=== PATIENT | male | born 1955 | race Caucasian/White ===

== ENCOUNTER 2016-03-15 13:56 | Inpatient (IN) | payer OTHER ==
[~2016-03-15] VITALS: Ht 180.3 cm; Wt 75.0 kg
[~2016-03-15 13:56] MED LIST: DICL75 PO; QUET200 PO; ROBA750T3 PO; SERT-129 PO
[2016-03-15 14:04] VITALS: BP 124/70; PULSE 91; RESP 16; TEMP 98.5; O2SAT 98
[2016-03-15] MEDS ORDERED: ZOLO25TA PO (14:46)
[2016-03-15] MEDS ORDERED: SERO200T PO (14:46)
--- NOTE | 2016-03-15 14:54 | PD ---
HPI Chief Complaint: Skin Problem Time Seen by Provider: 14:34 Travel History International Travel<30 days: No Contact w/Intl Traveler<30days: No Traveled to known affect area: No History of Present Illness HPI This patient complains of infection of his right foot. He injects himself of Dilaudid twice weekly and injected his foot a few days ago. It became red and swollen and pus filled. Symptoms severity is moderate. No alleviating factors. He reports history of hepatitis C as well. Does not go to any physicians for follow-up. No alleviating factors. Duration is 3 days. PFSH Past Medical History Blood Disorders: Yes Bipolar Disorder: Yes Anxiety: Yes Depression: Yes Congestive Heart Failure: No Cirrhosis: No Cerebrovascular Accident: No Diabetes: No Diminished Hearing: No Gastrointestinal Disorders: Yes (BLEEDING ULCERS) Hepatitis: Yes (Hep C) Hiatal Hernia: Yes (REPAIRED A CHILD) Musculoskeletal: Yes (CHRONIC LOW BACK) Immunizations Current: No Myocardial Infarction: No Schizophrenia: Yes (SCHIZOAFFECTIVE) Seizures: Yes (R/T WITHDRAWAL) Ulcer: Yes Past Surgical History Abdominal Surgery: Yes (hernia repair) Appendectomy: Yes Other Surgery: Yes (2 cysts removed from neck) Social History Alcohol Use: No Tobacco Use: Yes (1 ppd) Substance Use: Yes (Dilaudid last use yesterday , cocaine last use a year ago ) Allergies-Medications (Allergen,Severity, Reaction): Coded Allergies: Aspirin (Verified Allergy, Severe, BLEEDING ULCERS, 03/15/16) Geodon (Verified Allergy, Severe, TONGUE SWELLING, 03/15/16) Iodine (Verified Allergy, Severe, Rash, 03/15/16) SKIN SLOUGHS OFF PER PT " GETS EATEN TO THE BONE" Klonopin (Verified Allergy, Severe, Hallucinations, 03/15/16) Paxil (Verified Allergy, Severe, Rash, 03/15/16) Reported Meds & Prescriptions Reported Meds & Active Scripts Active Reported Seroquel (Quetiapine Fumarate) 200 Mg Tab 200 Mg PO DAILY Zoloft (Sertraline HCl) 25 Mg Tab 25 Mg PO DAILY Review of Systems General / Constitutional: No: Fever Eyes: No: Visual changes HENT: No: Headaches Cardiovascular: No: Chest Pain or Discomfort Respiratory: No: Shortness of Breath Gastrointestinal: No: Abdominal Pain Genitourinary: No: Dysuria Musculoskeletal: Positive: Pain Skin: No Rash Neurologic: No: Weakness Psychiatric: Positive: Substance Abuse, No: Depression Endocrine: No: Polydipsia Hematologic/Lymphatic: No: Easy Bruising Physical Exam Narrative GENERAL: Well-nourished, well-developed patient with right foot infection. SKIN: Warm and dry. HEAD: Atraumatic. Normocephalic. EYES: Pupils equal and round. No scleral icterus. No injection or drainage. ENT: No nasal bleeding or discharge. Mucous membranes pink and moist. NECK: Trachea midline. No JVD. CARDIOVASCULAR: Regular rate and rhythm. No murmur appreciated. RESPIRATORY: No accessory muscle use. Clear to auscultation. Breath sounds equal bilaterally. GASTROINTESTINAL: Abdomen soft, non-tender, nondistended. Hepatic and splenic margins not palpable. MUSCULOSKELETAL: Right foot has a large abscess on the dorsum. There is a fluctuant golf ball sized tense abscess. Macular erythema of the foot with tenderness and swelling and warmth. No clubbing. No cyanosis. No edema. NEUROLOGICAL: Awake and alert. No obvious cranial nerve deficits. Motor grossly within normal limits. Normal speech. PSYCHIATRIC: Appropriate mood and affect; insight and judgment poor Data Data Last Documented VS Vital Signs Date Time Temp Pulse Resp B/P Pulse Ox O2 Delivery O2 Flow Rate FiO2 03/15/16 14:04 98.5 91 16 124/70 98 Orders Wound Culture And Gram Stain (03/15/16 14:49) Iv Access Insert/Monitor (03/15/16 14:49) Complete Blood Count With Diff (03/15/16 14:49) Basic Metabolic Panel (Bmp) (03/15/16 14:49) Vancomycin Inj (Vancomycin Inj) (03/15/16 15:00) Admit Order (Ed Use Only) (03/15/16 15:46) Admit To Inpatient (03/15/16 ) Vital Signs (Adult) Q4H (03/15/16 15:45) Activity Oob With Assistance (03/15/16 15:45) Diet Regular Basic (03/15/16 Dinner) Labs Laboratory Tests Test 03/15/16 14:50 White Blood Count 11.7 TH/MM3 Red Blood Count 3.41 MIL/MM3 Hemoglobin 10.2 GM/DL Hematocrit 30.6 % Mean Corpuscular Volume 89.7 FL Mean Corpuscular Hemoglobin 30.0 PG Mean Corpuscular Hemoglobin 33.4 % Concent Red Cell Distribution Width 12.5 % Platelet Count 171 TH/MM3 Mean Platelet Volume 9.4 FL Neutrophils (%) (Auto) 71.0 % Lymphocytes (%) (Auto) 14.5 % Monocytes (%) (Auto) 10.1 % Eosinophils (%) (Auto) 3.9 % Basophils (%) (Auto) 0.5 % Neutrophils # (Auto) 8.2 TH/MM3 Lymphocytes # (Auto) 1.7 TH/MM3 Monocytes # (Auto) 1.2 TH/MM3 Eosinophils # (Auto) 0.5 TH/MM3 Basophils # (Auto) 0.1 TH/MM3 CBC Comment DIFF FINAL Differential Comment Sodium Level 140 MEQ/L Potassium Level 4.2 MEQ/L Chloride Level 106 MEQ/L Carbon Dioxide Level 25.3 MEQ/L Anion Gap 9 MEQ/L Blood Urea Nitrogen 13 MG/DL Creatinine 0.68 MG/DL Estimat Glomerular Filtration 119 ML/MIN Rate Random Glucose 99 MG/DL Calcium Level 8.0 MG/DL [facility] Medical Decision Making Medical Screen Exam Complete: Yes Emergency Medical Condition: Yes Medical Record Reviewed: Yes Differential Diagnosis Foot abscess, cellulitis, carbuncle Narrative Course I have reviewed the patient's electronic medical record. I placed a right external jugular IV I gave him 1 g IV vancomycin Patient gives verbal consent for incision and drainage of his foot abscess Procedure note: I anesthetized the area with ethyl chloride spray. I incised the abscess with an 11 blade scalpel and drained a large quantity of thick yellow pus. I sent a swab for one culture and Gram stain. I expressed all the pus possible He tolerated the procedure well CBC is normal Metabolic profile is normal Case reviewed with hospitalist. I'm going to admit him for IV antibiotics. This abscess and foot infection is significant and I think needs IV antibiotics rather than oral antibiotics as outpatient. Since I drained out a large amount of pus I don't feel this will require surgical incision and drainage formally in the operating room but that could change Diagnosis Primary Impression: Abscess of right foot Additional Impression: IV drug abuse Admitting Information Admitting Physician Requests: Admit Jacob Shin MD Mar 15, 2016 14:53
[2016-03-15] MEDS ORDERED: VANCOMYCIN INJ 1,000 MG in SODIUM CHLOR 0.9% 250 ML INJ 250 ML IV ONE (15:00)
[2016-03-15 15:02] LABS: AUTOMATED NEUTROPHIL # 8.2 TH/MM3 (1.8-7.7); BASOPHIL # 0.1 TH/MM3 (0-0.2); BASOPHIL % 0.5 % (0.0-2.0); EOSINOPHIL # 0.5 TH/MM3 (0-0.4); EOSINOPHIL % 3.9 % (0.0-4.0); HEMATOCRIT 30.6 % (39.0-51.0); HEMO FLAGS DIFF FINAL; LYMPH % 14.5 % (9.0-44.0); LYMPHOCYTE # 1.7 TH/MM3 (1.0-4.8); MEAN CELL VOLUME 89.7 FL (80.0-100.0); MEAN CORPUSCULAR HGB CONC 33.4 % (32.0-36.0); MONO % 10.1 % (0.0-8.0); PLATELET COUNT 171 TH/MM3 (150-450); RED BLOOD COUNT 3.41 MIL/MM3 (4.50-5.90); RED CELL DISTRIBUTION WIDTH 12.5 % (11.6-17.2); WHITE BLOOD COUNT 11.7 TH/MM3 (4.0-11.0)
[2016-03-15 15:11] LABS: POTASSIUM 4.2 MEQ/L (3.5-5.1)
[2016-03-15 15:14] LABS: BICARBONATE 25.3 MEQ/L (21.0-32.0)
[2016-03-15] MEDS ORDERED: ONDANSETRON HCL 4 MG/2 ML VIAL IVP PRN (15:45)
[2016-03-15] MEDS ORDERED: ACETAMINOPHEN 325 MG TAB PO PRN ×2 (15:45)
[2016-03-15] MEDS ORDERED: NALOXONE HCL 0.4 MG/ML AMP IV PRN (15:45)
[2016-03-15] MEDS ORDERED: ACETAMINOPHEN/HYDROcodone 325 MG/5 MG TAB PO PRN (15:45)
[2016-03-15] MEDS ORDERED: MAGNESIUM HYDROXIDE SUSP 30 ML CUP PO PRN (15:45)
[2016-03-15] MEDS ORDERED: Vancomycin Consult Pharmacy 1 EA OTHER SCH (15:45)
[2016-03-15] MEDS ORDERED: SODIUM CHLORIDE 0.9% FLUSH 5 ML FLUSH FLUSH PRN (15:45)
[2016-03-15] MEDS: HEPARIN SODIUM - SQ 10,000 UNITS/ML VIAL SQ SCH (16:34)
[2016-03-15 17:21] VITALS: BP 108/66; PULSE 73; RESP 18; O2SAT 98
--- NOTE | 2016-03-15 17:59 | HHI.HP ---
[facility] Service [facility] Primary Care Physician No Primary Care Physician Admission Diagnosis R foot abcess needing IV abx Diagnoses: (1) IV drug abuse (2) Abscess of right foot (3) Schizoaffective disorder Chief Complaint: Right foot infection Travel History International Travel<30 Days: No Contact w/Intl Traveler <30 Da: No Traveled to Known Affected Are: No History of Present Illness The patient is a 60-year-old male who presented to the emergency department complaint of an infection in his right foot. He states that he injected Dilaudid at the site a few days ago. He uses IV Dilaudid twice weekly. The area on the dorsum of the right foot became red and swollen. He developed worsening pain in the foot. Has had fevers, chills, and night sweats. Review of Systems Constitutional: COMPLAINS OF: Fever, Chills, Night Sweats Eyes: DENIES: Blurred vision, Vision loss Ears, nose, mouth, throat: DENIES: Hearing loss Respiratory: DENIES: Cough, Wheezing, Sputum production, Shortness of breath Cardiovascular: DENIES: Chest pain, Palpitations, Dyspnea on Exertion, Lower Extremity Edema Gastrointestinal: DENIES: Abdominal pain, Constipation, Diarrhea, Nausea, Vomiting Genitourinary: DENIES: Urinary frequency, Urinary incontinence, Urgency, Hematuria, Dysuria, Nocturia Musculoskeletal: DENIES: Joint pain, Muscle aches Integumentary: DENIES: Pruritus, Rash Hematologic/lymphatic: DENIES: Bruising Neurologic: DENIES: Headache Past Family Social History Past Medical History Schizoaffective disorder History of ulcers Hepatitis C History of withdrawal seizures IV drug abuse Past Surgical History Inguinal hernia repair Appendectomy 2 cysts removed from neck Reported Medications Seroquel (Quetiapine Fumarate) 200 Mg Tab 200 Mg PO DAILY Zoloft (Sertraline HCl) 25 Mg Tab 25 Mg PO DAILY Allergies: Coded Allergies: Aspirin (Verified Allergy, Severe, BLEEDING ULCERS, 03/15/16) Geodon (Verified Allergy, Severe, TONGUE SWELLING, 03/15/16) Iodine (Verified Allergy, Severe, Rash, 03/15/16) SKIN SLOUGHS OFF PER PT " GETS EATEN TO THE BONE" Klonopin (Verified Allergy, Severe, Hallucinations, 03/15/16) Paxil (Verified Allergy, Severe, Rash, 03/15/16) Family History Mother had leukemia. Social History Smokes one pack per day. Uses IV Dilaudid twice weekly. Has a history of cocaine use, most recently 1 year ago. Physical Exam Vital Signs Vital Signs Date Time Temp Pulse Resp B/P Pulse Ox O2 Delivery O2 Flow Rate FiO2 03/15/16 17:21 73 18 108/66 98 Room Air 03/15/16 14:04 98.5 91 16 124/70 98 Physical Exam GENERAL: Thin male in no acute distress. HEENT: Normocephalic, atraumatic. Pupils equal, round and reactive. Extraocular movements intact. No scleral icterus. No injection or drainage. Oropharynx is clear. Mucous membranes are moist. Poor dentition CARDIOVASCULAR: Regular rate and rhythm without murmurs, gallops, or rubs. RESPIRATORY: Clear to auscultation. No wheezes, rales, or rhonchi. Breathing is non-labored. GASTROINTESTINAL: Abdomen soft, non-tender, nondistended. EXTREMITIES: No lower extremity edema. No calf tenderness. PSYCH: Alert and oriented x 3. SKIN: Erythema and edema of the dorsum of the right foot with a raised area with a small area of black discoloration. Laboratory Laboratory Tests Test 03/15/16 14:50 White Blood Count 11.7 Red Blood Count 3.41 Hemoglobin 10.2 Hematocrit 30.6 Mean Corpuscular Volume 89.7 Mean Corpuscular Hemoglobin 30.0 Mean Corpuscular Hemoglobin 33.4 Concent Red Cell Distribution Width 12.5 Platelet Count 171 Mean Platelet Volume 9.4 Neutrophils (%) (Auto) 71.0 Lymphocytes (%) (Auto) 14.5 Monocytes (%) (Auto) 10.1 Eosinophils (%) (Auto) 3.9 Basophils (%) (Auto) 0.5 Neutrophils # (Auto) 8.2 Lymphocytes # (Auto) 1.7 Monocytes # (Auto) 1.2 Eosinophils # (Auto) 0.5 Basophils # (Auto) 0.1 CBC Comment DIFF FINAL Differential Comment Sodium Level 140 Potassium Level 4.2 Chloride Level 106 Carbon Dioxide Level 25.3 Anion Gap 9 Blood Urea Nitrogen 13 Creatinine 0.68 Estimat Glomerular Filtration 119 Rate Random Glucose 99 Calcium Level 8.0 Date/Time Procedure Status Source Growth 03/15/16 14:50 Gram Stain Received Wound Foot Pending 03/15/16 14:50 Wound Culture Received Wound Foot Pending Result Diagram: 03/15/16 1450 03/15/16 1450 Assessment and Plan Assessment and Plan 1. Cellulitis/abscess, right foot: Continue IV antibiotics. Status post incision and drainage in the ER. Wound culture pending. Consult podiatry. 2. Schizoaffective disorder: Continue Seroquel, Zoloft. 3. IV drug abuse: Patient has been counseled. 4. Tobacco abuse: Counseled quit smoking. 5. DVT prophylaxis: Heparin. Jacob Ornelas MD Mar 15, 2016 17:59
[2016-03-15 19:05] VITALS: BP 112/65; PULSE 93; RESP 18; O2SAT 97
[2016-03-15] MEDS: ACETAMINOPHEN/HYDROcodone 325 MG/10 MG TAB PO PRN (20:03)
[2016-03-15 20:42] VITALS: BP 138/80
[2016-03-15 20:45] VITALS: BP 113/73; PULSE 80; RESP 18; TEMP 97.8; O2SAT 99
[2016-03-15] MEDS: SODIUM CHLORIDE 0.9% FLUSH 5 ML FLUSH FLUSH SCH (21:41)
[2016-03-15] MEDS: VANCOMYCIN INJ 1,400 MG in SODIUM CHLORID 0.9% 500 ML INJ 500 ML IV SCH (23:54)
[2016-03-16] VITALS: BP 91/56; PULSE 67; RESP 18; TEMP 98.7; O2SAT 97
[2016-03-16] MEDS: HEPARIN SODIUM - SQ 10,000 UNITS/ML VIAL SQ SCH ×2 (04:32→14:14)
[2016-03-16 06:48] LABS: AUTOMATED NEUTROPHIL # 4.6 TH/MM3 (1.8-7.7); BASOPHIL % 0.5 % (0.0-2.0); EOSINOPHIL # 0.4 TH/MM3 (0-0.4); EOSINOPHIL % 5.6 % (0.0-4.0); HEMATOCRIT 32.2 % (39.0-51.0); HEMO FLAGS DIFF FINAL; LYMPH % 24.7 % (9.0-44.0); LYMPHOCYTE # 1.9 TH/MM3 (1.0-4.8); MEAN CELL VOLUME 89.9 FL (80.0-100.0); MEAN CORPUSCULAR HEMOGLOBIN 29.3 PG (27.0-34.0); MEAN CORPUSCULAR HGB CONC 32.6 % (32.0-36.0); MONO % 9.5 % (0.0-8.0); NEUT % 59.7 % (16.0-70.0); PLATELET COUNT 168 TH/MM3 (150-450); RED BLOOD COUNT 3.58 MIL/MM3 (4.50-5.90); RED CELL DISTRIBUTION WIDTH 12.7 % (11.6-17.2); WHITE BLOOD COUNT 7.6 TH/MM3 (4.0-11.0)
[2016-03-16 08:00] VITALS: BP 118/71; PULSE 63; RESP 20; TEMP 97.6; O2SAT 97
[2016-03-16] MEDS: QUEtiapine FUMARATE 200 MG TAB PO SCH (09:00)
[2016-03-16] MEDS: SODIUM CHLORIDE 0.9% FLUSH 5 ML FLUSH FLUSH SCH (10:49)
[2016-03-16] MEDS: SERTRALINE HCL 50 MG TAB PO SCH (10:49)
[2016-03-16] MEDS: ACETAMINOPHEN/HYDROcodone 325 MG/10 MG TAB PO PRN ×2 (10:50→21:28)
[2016-03-16 12:00] VITALS: BP 109/66; PULSE 67; RESP 20; TEMP 96.3; O2SAT 95
--- NOTE | 2016-03-16 13:42 | HHI.PR ---
Subjective Remarks Follow-up for right foot abscess. I was informed by Dr. Bowens who came to evaluate patient that he is hallucinating. Patient states that his foot is better than it was before. Objective Vitals Vital Signs Date Time Temp Pulse Resp B/P Pulse Ox O2 Delivery O2 Flow Rate FiO2 03/16/16 13:03 18 03/16/16 08:00 97.6 63 20 118/71 97 03/16/16 00:00 98.7 67 18 91/56 97 03/15/16 20:45 97.8 80 18 113/73 99 03/15/16 20:42 98 18 138/80 97 03/15/16 19:05 93 18 112/65 97 Room Air 03/15/16 19:05 93 18 03/15/16 17:21 73 18 108/66 98 Room Air 03/15/16 14:04 98.5 91 16 124/70 98 I/O 03/15/16 03/15/16 03/15/16 03/16/16 03/16/16 03/16/16 07:00 15:00 23:00 07:00 15:00 23:00 Intake Total 620 ml 120 ml 550 ml Output Total 200 ml Balance 420 ml 120 ml 550 ml Intake Oral 120 ml 120 ml 550 ml IV Total 500 ml Output Urine Total 200 ml # Voids 1 1 Result Diagram: 03/16/16 0609 03/15/16 1450 Objective Remarks GENERAL: Well-nourished, well-developed male standing by the window when we enter the room. SKIN: Warm and dry. Fluctuance to the right dorsal foot with purulent drainage. Surrounding erythema extends to the medial R foot and ankle. No erythema over the right lower leg otherwise. Patient has a circular lesion with slight erythema to the right upper arm which is not fluctuant. HEAD: Atraumatic. Normocephalic. CARDIOVASCULAR: Regular rate and rhythm. RESPIRATORY: No accessory muscle use. Clear to auscultation. Breath sounds equal bilaterally. MUSCULOSKELETAL: Swelling over the right ankle and dorsal foot. 2+ right DP pulse. NEUROLOGICAL: Awake and alert. Motor grossly within normal limits. Normal speech. PSYCHIATRIC: Highly anxious and fidgety. Urinary Catheter: No Vascular Central Line Catheter: No A/P Problem List: (1) IV drug abuse ICD Code: F19.10 Status: Acute (2) Abscess of right foot ICD Code: L02.611 Status: Acute (3) Schizoaffective disorder ICD Code: F25.9 Status: Acute Assessment and Plan 1. Cellulitis/abscess, right foot: Continue IV antibiotics. Status post incision and drainage in the ER. Wound culture pending. Spoke with Dr. Bowens ( note is unavailable) does not believe it will require surgery, but has ordered MRI with and without contrast of right foot. Recommends wound care including Xeroform, 4 x 4, Chaitanya, Quinn wrap changed daily. 2. Schizoaffective disorder: Continue Seroquel, Zoloft. Patient states he takes 200 mg in the morning, 200 mg in the afternoon, and 400 mg at night. I have asked the nurse to update the med rec to reflect this so Seroquel can be continued. 3. IV drug abuse: Patient has been counseled. Patient appears to be highly anxious likely withdrawing from opiates. Patient does not appear to be hallucinating when we reevaluate him. BP stable. 1 mg IV Ativan ordered. 4. Tobacco abuse: Counseled to quit smoking. 5. DVT prophylaxis: Heparin. Written by Thi Iyer PA-C acting as scribe for Dr. Ornelas on 03/16/15 at ~ 1315. The documentation accurately reflects the work and decisions performed face-to- face by me Dr. Ornelas on 03/16/15 at 1315. Thi Iyer Mar 16, 2016 13:42
[2016-03-16] MEDS ORDERED: LORazepam 2 MG/ML VIAL IV PUSH ONE (14:00)
[2016-03-16] MEDS: VANCOMYCIN INJ 1,400 MG in SODIUM CHLORID 0.9% 500 ML INJ 500 ML IV SCH (14:14)
[2016-03-16 16:00] VITALS: BP 110/71; PULSE 62; RESP 20; TEMP 96.5; O2SAT 96
--- NOTE | 2016-03-16 17:48 | MB ---
cc: DONTE BENNETT DPM DATE OF CONSULTATION: 03/16/2016 REASON FOR CONSULTATION: Right foot abscess secondary to injection. HISTORY OF PRESENT ILLNESS: 60-year-old male who presented to the emergency room with an infection of his right foot. He injected Dilaudid a few days ago. He uses IV Dilaudid twice weekly. The dorsum of his foot became red and swollen. Currently I am seeing the patient bedside. He notes there has been improvement since admission. However, he is having issues with hallucination and mental stability and he is currently very agitated however nonviolent. PAST MEDICAL HISTORY: 1. Schizoaffective disorder. 2. History of ulcers. 3. Hepatitis C. 4. History of withdrawal seizures. 5. IV drug abuse. 6. He has a history of herniated disc per the patient in the back. PAST SURGICAL HISTORY: 1. Inguinal hernia repair. 2. Appendectomy. 3. Two cysts removed from the neck. MEDICATIONS: Reported medications are: 1. Seroquel. 2. Zoloft. ALLERGIES: 1. ASPIRIN. 2. GEODON. 3. IODINE. 4. KLONOPIN. 5. PAXIL. FAMILY HISTORY: Mother had leukemia. SOCIAL HISTORY: Smokes one pack per day. Uses IV Dilaudid twice weekly. History of cocaine use, most recently one year ago. IMPATIENT MEDICATIONS: Reviewed. The patient is receiving Vancomycin. PHYSICAL EXAMINATION: VITAL SIGNS: Temperature is 97.6, pulse rate 63, respiratory rate 20, blood pressure 118/71. He is satting 97% on room air. GENERAL: This is an alert and oriented gentleman seen bedside. He shows mild increased breathing. His is itching and scratching his face and his chest, not to the point of bleeding but he is obviously agitated. He has a clear thought process however. EXTREMITIES: Bilateral lower extremities are examined. Right lower extremity redness, edema, and erythema of the dorsum of the right foot. There is a mid medial foot open draining semi necrotic lesion. There appears to be serous and minimal purulent material. On point of pressure to the area, there is pain. There are no obvious signs of soft tissue emphysema or necrotizing fasciitis. The infection is localized to the extremity and per the patient improving. The patient has slight difficulty with range of motion of the digits. In the ankle, there is good range of motion. There is no probing to tendon or bone. Pedal pulses are fully palpable. Sensation is intact. LABORATORY FINDINGS: There is a trend white blood cell 11.7 down to 7.6, hemoglobin and hematocrit 10 and 32, platelet count is 168,000. Chem-7: Sodium 140, potassium 4.2, chloride 106, CO2 25.3, BUN is 13, creatinine 0.68, random glucose is 99. Wound culture on 03/15 is showing many gram-positive cocci in pairs, clusters and chains. IMAGING STUDIES: MRI ordered and pending. ASSESSMENT AND PLAN: Right foot abscess cellulitis. PLAN: 1. Await MRI for further determination if the patient needs transferred to the main for incision and drainage of the possible abscess. 2. I notified medicine of the patient's hallucinating and agree the patient will be evaluated for adjusting of medication. 3. The wound is open and draining. Bandage will be changed daily per nursing. I will sign off Dr. Cross who will evaluate the patient tomorrow and advise pending the MRI. Thank you for this consultation. BONY Rios/DAY /12:55 PM /5:40 PM
[2016-03-16 20:00] VITALS: BP 105/68; PULSE 73; RESP 16; TEMP 98.3; O2SAT 98
[2016-03-16] MEDS ORDERED: GADODIAMIDE PF 287 MG/ML 5 ML VIAL (for RAD MRI) IV ONE (23:46)
[2016-03-17] VITALS: BP 109/76; PULSE 71; RESP 18; TEMP 97.5; O2SAT 98
[2016-03-17] MEDS: SODIUM CHLORIDE 0.9% FLUSH 5 ML FLUSH FLUSH SCH ×3 (00:27→21:35)
[2016-03-17] MEDS: VANCOMYCIN INJ 1,400 MG in SODIUM CHLORID 0.9% 500 ML INJ 500 ML IV SCH ×2 (00:27→12:45)
[2016-03-17] MEDS: HEPARIN SODIUM - SQ 10,000 UNITS/ML VIAL SQ SCH ×2 (02:42→16:18)
[2016-03-17] MEDS: ACETAMINOPHEN/HYDROcodone 325 MG/10 MG TAB PO PRN ×4 (05:17→21:36)
[2016-03-17 07:30] VITALS: BP 107/73; PULSE 58; RESP 20; TEMP 98.1; O2SAT 99
[2016-03-17] MEDS: QUEtiapine FUMARATE 200 MG TAB PO SCH ×2 (09:03→21:35)
[2016-03-17] MEDS: SERTRALINE HCL 50 MG TAB PO SCH (09:03)
[2016-03-17] MEDS ORDERED: QUEtiapine FUMARATE 100 MG TAB PO ONE (11:45)
[2016-03-17] MEDS ORDERED: PHARMACY ORDERED LAB XX ONE (11:45)
[2016-03-17 12:00] VITALS: BP 111/69; PULSE 67; RESP 20; TEMP 96.7; O2SAT 98
--- NOTE | 2016-03-17 12:03 | PD.CONS ---
Provisional Diagnosis Admission Date Mar 15, 2016 at 15:48 [place] I. schizoaffective disorder, bipolar type, unspecified anxiety, opiate use disorder [place] II. Deferred [place] III. Hepatitis C, cellulitis [place] IV. Poor social and family support [place] V. 56 History of Present Illness Service Psychiatry Consult Requested By Primary Care Physician No Primary Care Physician HPI The patient is a 60-year-old man, domicile with his girlfriend in [place], employed in construction, with psychiatric history of a schizoaffective disorder, opiate use disorder, iv Dilaudid, over 10 psychiatric hospitalizations, several suicidal attempts by overdosing, outpatient psychiatric care in [facility], he is on Zoloft 25 mg daily, Seroquel 800 mg daily, medical history of hepatitis C and cellulitis, who presented to the emergency department complaint of an infection in his right foot. He stated that he injected Dilaudid at the site a few days ago. The area on the dorsum of the right foot became red and swollen. He developed worsening pain in the foot. Has had fevers, chills, and night sweats. He was admitted in the hospital due to cellulitis and possible sepsis. He was consulted to psychiatry for medication management. Chart was reviewed, case discussed with nurse in charge, no collateral information available at this moment, patient was seen and evaluated at bedside in the medical floor. On psychiatric evaluation patient was found calm and cooperative. Patient explains that he came to the hospital because he has been abusing IV drugs in the last weeks and his skin became infected. He says that he has been using IV Dilaudid about 2 or 3 times per week for the last year. He says that he has been in rehabilitation programs about 3 times, the last one was about 2 years ago, he was sober for about a year, but started using months later and has been using very often since then. He denies withdrawal symptoms the days he doesn't use, he denies withdrawal symptoms at this moment. Patient reports sad mood mostly secondary and as a reaction to his current medical situation, but he denies depression, he denies anhedonia, he denies hopelessness helplessness, he denies suicidal and homicidal ideation. He reports continues anxiety and insomnia "because they haven't been given me my psychiatric medications". Patient stated that he has been stable of his schizoaffective disorder for about 2 years now in the current psychotropic regimen. In the last 2-3 days he also has been experiences episodic auditory hallucinations of voices "loud, maybe calling my name and making noise", but not commanding type. He has had these episodes today. Patient is fully oriented 3, no fluctuation of consciousness, attention deficit, gross cognitive impairment is observed or reported at this moment. Review of Systems Constitutional: COMPLAINS OF: Fever, Weight loss Endocrine: DENIES: Heat/cold intolerance, Polydipsia, Polyuria, Polyphagia Eyes: DENIES: Blurred vision, Diplopia, Eye inflammation, Eye pain, Vision loss , Photosensitivity, Double Vision Ears, nose, mouth, throat: DENIES: Tinnitus, Hearing loss, Vertigo, Nasal discharge, Oral lesions, Throat pain, Hoarseness, Ear Pain, Running Nose, Epistaxis, Sinus Pain, Toothache, Odynophagia Respiratory: DENIES: Apneas, Cough, Snoring, Wheezing, Hemoptysis, Sputum production, Shortness of breath Cardiovascular: DENIES: Chest pain, Palpitations, Syncope, Dyspnea on Exertion , PND, Lower Extremity Edema, Orthopnea, Claudication Gastrointestinal: DENIES: Abdominal pain, Black stools, Bloody stools, Constipation, Diarrhea, Nausea, Vomiting, Difficulty Swallowing, Anorexia Musculoskeletal: COMPLAINS OF: Joint pain, Back pain Integumentary: DENIES: Abnormal pigmentation, Nail changes, Pruritus, Rash Hematologic/lymphatic: DENIES: Bruising, Lymphadenopathy Immunologic/allergic: DENIES: Eczema, Urticaria Neurologic: DENIES: Abnormal gait, Headache, Localized weakness, Paresthesias, Seizures, Speech Problems, Tremor, Poor Balance Psychiatric: COMPLAINS OF: Anxiety, Hallucinations Past Family Social History Coded Allergies: Aspirin (Verified Allergy, Severe, BLEEDING ULCERS, 03/15/16) Geodon (Verified Allergy, Severe, TONGUE SWELLING, 03/15/16) Iodine (Verified Allergy, Severe, Rash, 03/15/16) SKIN SLOUGHS OFF PER PT " GETS EATEN TO THE BONE" Klonopin (Verified Allergy, Severe, Hallucinations, 03/15/16) Paxil (Verified Allergy, Severe, Rash, 03/15/16) Reported Medications Quetiapine (Seroquel)200 Mg [id number] Mg PO DAILY #30 TAB Ref 0 03/15/16 Sertraline (Zoloft)25 Mg Tab25 Mg PO DAILY #30 TAB Ref 0 03/15/16 Discontinued Reported Medications Quetiapine Fumarate 200 Mg [id number] Mg PO HS 09/26/15 Quetiapine Fumarate 200 Mg [id number] Mg PO BID 09/26/15 Sertraline 100 mg 100 Mg Tab1 Tab PO HS 09/26/15 Discontinued Scripts Methocarbamol (Robaxin-750)750 Mg [id number] Mg PO QID PRN (PAIN SCALE 1 TO 10) #20 TAB Prov:Yamil Pitts MD 12/13/15 Diclofenac Sod (Diclofenac Sodium Dr)75 Mg Tab75 Mg PO BID PRN (PAIN SCALE 1 TO 10) #20 TAB Prov:Yamil Pitts MD 12/13/15 Current Medications Medications (Trade) Dose Ordered Sig/Nav Route Start Time Stop Time Status Last Admin (NS Flush) 2 ml UNSCH PRN FLUSH 03/15/16 15:45 (NS Flush) 2 ml BID FLUSH 03/15/16 21:00 03/17/16 09:03 (Tylenol) 650 mg Q4H PRN PO 03/15/16 15:45 (Zofran Inj) 4 mg Q6H PRN IVP 03/15/16 15:45 (Milk Of Magnesia Liq) 30 ml Q12H PRN PO 03/15/16 15:45 (Heparin Inj) 5,000 units Q12H SQ 03/15/16 15:45 03/17/16 02:42 (Tylenol) 650 mg Q6H PRN PO 03/15/16 15:45 ([place] 5-325 Mg) 1 tab Q4H PRN PO 03/15/16 15:45 ([place] 10-325 Mg) 1 tab Q4H PRN PO 03/15/16 15:45 03/17/16 11:25 Naloxone HCl 0.4 mg 0.4 mg UNSCH PRN IV 03/15/16 15:45 Pharmacy Profile Note 0 ml @ 0 mls/hr UNSCH OTHER 03/15/16 15:45 (Vancomycin Inj/ NS 500 ml Inj) 514 ml @ 250 mls/hr Q12H IV 03/16/16 00:00 03/17/16 00:27 Miscellaneous Information SPECIFIC LAB TO BE DRAWN:VANCO TROUGH DATE... ONCE ONCE XX 03/17/16 11:45 03/17/16 11:46 03/17/16 11:20 (SEROquel) 200 mg DAILY PO 03/16/16 09:00 03/17/16 09:03 (Zoloft) 25 mg DAILY PO 03/16/16 09:00 03/17/16 09:03 Family History Patient denies Social History Patient was born and raised in [place], he has been living in [place] for 30 years, he lives with a girlfriend right now, he works in the construction business, he has an adult son, he finished his GED. Physical Exam Vital Signs Vital Signs Date Time Temp Pulse Resp B/P Pulse Ox O2 Delivery O2 Flow Rate FiO2 03/17/16 07:30 98.1 58 20 107/73 99 03/15/16 19:05 Room Air I/O 03/16/16 03/16/16 03/17/16 08:00 16:00 00:00 Intake Total 120 ml 550 ml 480 ml Balance 120 ml 550 ml 480 ml Mental Status Examination Appearance man, who was disheveled, appears older than his stated age, fair hygiene, calm and cooperative, a little bit restless Speech: Unremarkable Orientation: x3 Memory: Unremarkable Thought Process: Logical Thought Content: Unremarkable Hallucination Type: Auditory Suicidal Ideation: No Previous Suicide Attempts: No Homicidal Ideation: No Insight: Good Judgement: WNL Affect: Sad Mood: Sad Motor Activity: Normal gait Assessment & Plan Problem List: (1) Schizoaffective disorder Assessment & Plan: The patient is a 60-year-old man with psychiatric history of a schizoaffective disorder, opiate use disorder, iv Dilaudid, over 10 psychiatric hospitalizations, several suicidal attempts by overdosing, active outpatient psychiatric care in [facility] every [address] Velasco, he has been stable for about 2 years on Zoloft 25 mg daily, Seroquel 800 mg daily, he has medical history of hepatitis C and cellulitis, who presented to the emergency department complaint of an infection in his right foot, was diagnosed with cellulitis, possible sepsis. Consulted to psychiatry due to active auditory hallucinations and for medication management. On psychiatric evaluation today patient endorses sadness and anxiety that he relays to a reaction to current medical conditions. He denies depressive symptoms, such as anhedonia, hopelessness, helplessness, guiltiness, worthlessness, suicidal and homicidal ideation. Patient is future oriented and motivated to follow medical recommendations and get better. However, in the last 2-3 days he has been experiences auditory hallucinations, he says that he has been hearing voices that he cannot define very well, but they are noncommanding type. He is highly probable that this psychotic decompensation is secondary to discontinuation of psychotropics and subtherapeutic doses of antipsychotics. Delirium due to underlying medical condition could be also another cause of psychosis, but at the moment of this evaluation no fluctuation of consciousness, deficits in attention or memory problems are observed. The patient does not meet criteria for psychiatric admission at this moment, but he really benefit of increasing Seroquel to his previous therapeutic doses. Seroquel can be increased by 200 mg daily until 800 mg, always be careful with QTc interval prolongation. Zoloft can also be increased to 50 mg daily to address anxiety and help with sadness. We will continue follow-up. ICD Code: F25.9 Assessment & Plan Estimated LOS: days Problem Qualifiers (1) Schizoaffective disorder: Qualified Code: F25.0 - Schizoaffective disorder, bipolar type Kei Beal MD Mar 17, 2016 12:03
--- NOTE | 2016-03-17 13:04 | PD.POD ---
Subjective Podiatric Problems s/p I and D right foot with Emergency Room Physician. Seen at bedside this am with appropriate response to questions. Right foot feels better. Pain scale used: 0-10 numeric scale Pain score: 5 Past Med/Surg/Social History Past Medical History Musculoskeletal: REPORTS HX OF: Other musculoskeletal hx (chronic neck, back pain) Infectious disease: REPORTS HX OF: Hepatitis Past Surgical History Gastrointestinal: DENIES HX OF: Colectomy, total Social History Smoking Status: Current Every Day Smoker Objective Vital Signs Vital Signs Date Time Temp Pulse Resp B/P Pulse Ox O2 Delivery O2 Flow Rate FiO2 03/17/16 12:00 96.7 67 20 111/69 98 03/17/16 07:30 98.1 58 20 107/73 99 03/17/16 00:26 18 03/17/16 00:00 97.5 71 18 109/76 98 03/16/16 20:00 98.3 73 16 105/68 98 03/16/16 16:00 96.5 62 20 110/71 96 Coded Allergies: Aspirin (Verified Allergy, Severe, BLEEDING ULCERS, 03/15/16) Geodon (Verified Allergy, Severe, TONGUE SWELLING, 03/15/16) Iodine (Verified Allergy, Severe, Rash, 03/15/16) SKIN SLOUGHS OFF PER PT " GETS EATEN TO THE BONE" Klonopin (Verified Allergy, Severe, Hallucinations, 03/15/16) Paxil (Verified Allergy, Severe, Rash, 03/15/16) Other Results Laboratory Tests Test 03/15/16 03/16/16 03/17/16 14:50 06:09 05:12 Sodium Level 140 MEQ/L Potassium Level 4.2 MEQ/L Chloride Level 106 MEQ/L Carbon Dioxide Level 25.3 MEQ/L Anion Gap 9 MEQ/L Blood Urea Nitrogen 13 MG/DL Random Glucose 99 MG/DL Calcium Level 8.0 MG/DL White Blood Count 7.6 TH/MM3 Red Blood Count 3.58 MIL/MM3 Hemoglobin 10.5 GM/DL Hematocrit 32.2 % Mean Corpuscular Volume 89.9 FL Mean Corpuscular Hemoglobin 29.3 PG Mean Corpuscular Hemoglobin 32.6 % Concent Red Cell Distribution Width 12.7 % Platelet Count 168 TH/MM3 Mean Platelet Volume 9.9 FL Neutrophils (%) (Auto) 59.7 % Lymphocytes (%) (Auto) 24.7 % Monocytes (%) (Auto) 9.5 % Eosinophils (%) (Auto) 5.6 % Basophils (%) (Auto) 0.5 % Neutrophils # (Auto) 4.6 TH/MM3 Lymphocytes # (Auto) 1.9 TH/MM3 Monocytes # (Auto) 0.7 TH/MM3 Eosinophils # (Auto) 0.4 TH/MM3 Basophils # (Auto) 0.0 TH/MM3 CBC Comment DIFF FINAL Differential Comment Creatinine 0.61 MG/DL Estimat Glomerular Filtration 135 ML/MIN Rate Exam-Podiatry Dermatological Exam Ulcers: Location/Measurements RLE Medial midfoot with ulceration s/p I and D. No active drainage 2x2x1 No exposed bone or tendon. DP and PT is palpable. Protective sensation is intact and no streaking . Assessment & Plan Diagnosis: (1) Abscess of right foot Status: Acute A/P s/p I and D with ER physician. Wound is stable. MRI complete and after verbal review with Radiology on 03/16/16, no abscess noted. Pending MSK review and final report. Plan for Betadine dressing bid x 2 days. Then plan for Santyl oint qod. Needs abx for d/c likely 2 weeks. Plan for d/c in 1-2 days once abx established. Will revaluate on 03/18/16, pm. Kristina Cross DPM Mar 17, 2016 13:04
--- NOTE | 2016-03-17 15:30 | RADHPO ---
EXAM DATE/TIME: 03/16/2016 23:30 [place] COMPARISON: No previous studies available for comparison. INDICATIONS : Abscess. Wound on medial aspect of right foot from injecting. CONTRAST: 15 cc Omniscan (gadodiamide) IV MEDICAL HISTORY : Hepatitis C. IVDU. SURGICAL HISTORY : Umbilical hernia repair. Knee cartilage repair. ENCOUNTER: Subsequent ACUITY: 4-6 days PAIN SCORE: 4/10 LOCATION: Right medial foot. TECHNIQUE: Multiplanar, multisequence MRI examination was performed without contrast and after the intravenous a dministration of gadolinium. FINDINGS: 23 mm diameter, 12 mm deep subcutaneous ulcer is seen medial to the navicular. There is an approximat e 6 x 7 cm area of surrounding subcutaneous edema. No organized/drainable fluid. Pain and localized s ubcortical marrow edema seen medially of the navicular but no corresponding T1 signal abnormality. Bones of the right foot are intact and normally aligned. No deep soft tissue inflammatory changes are demonstrated. No ligament or tendon rupture. CONCLUSION: Focal subcutaneous soft tissue ulcer of the medial arch with surrounding cellulitis and faint, reacti ve appearing marrow edema of the navicular. No abscess. No evidence of osteomyelitis. Julio Foster MD on March 17, 2016 at 15:24 Board Certified Radiologist. This report was verified electronically.
[2016-03-17 16:00] VITALS: BP 102/66; PULSE 61; RESP 20; TEMP 96.4; O2SAT 98
--- NOTE | 2016-03-17 16:47 | HHI.PR ---
Subjective Remarks The patient states that his right foot pain feels much improved. Denies fever or chills. Denies withdrawal symptoms. He does admit to IV drug use stating his last use was 5 or 6 days ago and that he injected into the right foot at that time. Objective Vitals Vital Signs Date Time Temp Pulse Resp B/P Pulse Ox O2 Delivery O2 Flow Rate FiO2 03/17/16 16:00 96.4 61 20 102/66 98 03/17/16 12:00 96.7 67 20 111/69 98 03/17/16 07:30 98.1 58 20 107/73 99 03/17/16 00:26 18 03/17/16 00:00 97.5 71 18 109/76 98 03/16/16 20:00 98.3 73 16 105/68 98 I/O 03/16/16 03/16/16 03/16/16 03/17/16 03/17/16 03/17/16 06:59 14:59 22:59 06:59 14:59 22:59 Intake Total 120 ml 550 ml 480 ml 1120 ml 268 ml Balance 120 ml 550 ml 480 ml 1120 ml 268 ml Intake Oral 120 ml 550 ml 480 ml 620 ml IV Total 268 ml Tube Feeding 500 ml # Voids 1 4 2 2 # Bowel Movements 1 0 0 Result Diagram: 03/16/16 0609 03/17/16 0512 Objective Remarks GENERAL: Well-nourished, well-developed missed count male patient. SKIN: Warm and dry. HEAD: Normocephalic. EYES: No scleral icterus. No injection or drainage. NECK: Supple, trachea midline. No JVD or lymphadenopathy. CARDIOVASCULAR: Regular rate and rhythm without murmurs, gallops, or rubs. RESPIRATORY: Breath sounds equal bilaterally. No accessory muscle use. GASTROINTESTINAL: Abdomen soft, non-tender, nondistended. EXTREMITIES: No cyanosis, or edema. Right foot medial dorsum has a small wound at previous I and D site which is draining a scant amount of purulent discharge however no underlying abscess or induration is palpated, mild erythema, no streaking, and the foot is not warm to palpation. NEUROLOGICAL: Awake, alert, and oriented x 3. Non-focal. A/P Problem List: (1) IV drug abuse ICD Code: F19.10 Status: Acute (2) Abscess of right foot ICD Code: L02.611 Status: Acute (3) Schizoaffective disorder ICD Code: F25.9 Status: Acute Assessment and Plan 1. Cellulitis/abscess, right foot: Status post IND in the emergency department. Wound culture is growing viridans strep. He is clinically much improved. No further abscesses detectable, foot MRI is negative. Appreciate podiatry input. Likely the patient can be discharged home tomorrow on by mouth antibiotics. Continue wound care including Xeroform, 4 x 4, Chaitanya, Quinn wrap changed daily. 2. Schizoaffective disorder: Continue Seroquel, Zoloft. 3. IV drug abuse: Patient has been counseled. 4. Tobacco abuse: Counseled to quit smoking. 5. DVT prophylaxis: Heparin. Problem Qualifiers (1) Schizoaffective disorder: Qualified Code: F25.0 - Schizoaffective disorder, bipolar type Marlene Ortiz MD Mar 17, 2016 16:47
[2016-03-17] MEDS: CLINDAMYCIN 150 MG CAP PO SCH ×2 (17:42→23:13)
[2016-03-17 20:00] VITALS: BP 111/70; PULSE 64; RESP 20; TEMP 96.2; O2SAT 98
[2016-03-18] VITALS: BP 100/48; PULSE 84; RESP 16; TEMP 97.1; O2SAT 93
[2016-03-18 04:00] VITALS: BP 109/73; PULSE 59; RESP 21; TEMP 96.5; O2SAT 99
[2016-03-18] MEDS: HEPARIN SODIUM - SQ 10,000 UNITS/ML VIAL SQ SCH (04:08)
[2016-03-18] MEDS: ACETAMINOPHEN/HYDROcodone 325 MG/10 MG TAB PO PRN ×2 (04:08→08:45)
[2016-03-18] MEDS: CLINDAMYCIN 150 MG CAP PO SCH ×2 (05:39→11:37)
[2016-03-18 08:00] VITALS: BP 102/72; PULSE 58; RESP 18; TEMP 97.9; O2SAT 96
[2016-03-18] MEDS: QUEtiapine FUMARATE 200 MG TAB PO SCH (08:40)
[2016-03-18] MEDS: SODIUM CHLORIDE 0.9% FLUSH 5 ML FLUSH FLUSH SCH (08:40)
[2016-03-18] MEDS ORDERED: SERTRALINE HCL 50 MG TAB PO SCH (09:00)
[2016-03-18] MEDS ORDERED: CLIN150 PO (10:10)
--- NOTE | 2016-03-18 10:10 | HHI.DCPOC ---
Discharge Care Plan Diagnosis: (1) Abscess of right foot Goals to Promote Your Health * To prevent worsening of your condition and complications * To maintain your health at the optimal level Directions to Meet Your Goals Take your medications as prescribed Follow your dietary instruction Follow activity as directed Keep your appointments as scheduled Take your immunizations and boosters as scheduled If your symptoms worsen call your PCP, if no PCP go to Urgent Care Center or Emergency Room Smoking is Dangerous to Your Health. Avoid second hand smoke Call the 24-hour hour crisis hotline for domestic abuse at Jacob Concepcion Mar 18, 2016 10:10
--- NOTE | 2016-03-18 10:17 | HHI.DS ---
Discharge Summary Admission Date Mar 15, 2016 at 15:48 Discharge Date: Mar 18, 2016 Admitting Diagnosis R foot abcess needing IV abx (1) IV drug abuse ICD Code: F19.10 (2) Abscess of right foot ICD Code: L02.611 (3) Schizoaffective disorder ICD Code: F25.9 Procedures Incision and drainage of the right foot abscess 03/15/16 Brief History - From Admission The patient is a 60-year-old male who presented to the emergency department complaint of an infection in his right foot. He states that he injected Dilaudid at the site a few days ago. He uses IV Dilaudid twice weekly. The area on the dorsum of the right foot became red and swollen. He developed worsening pain in the foot. Has had fevers, chills, and night sweats. CBC/BMP: 03/16/16 0609 03/17/16 0512 Significant Findings Laboratory Tests Test 03/15/16 03/16/16 03/17/16 14:50 06:09 11:20 White Blood Count 11.7 TH/MM3 (4.0-11.0) Red Blood Count 3.41 MIL/MM3 3.58 MIL/MM3 (4.50-5.90) (4.50-5.90) Hemoglobin 10.2 GM/DL 10.5 GM/DL (13.0-17.0) (13.0-17.0) Hematocrit 30.6 % 32.2 % (39.0-51.0) (39.0-51.0) Neutrophils (%) (Auto) 71.0 % (16.0-70.0) Monocytes (%) (Auto) 10.1 % 9.5 % (0.0-8.0) (0.0-8.0) Neutrophils # (Auto) 8.2 TH/MM3 (1.8-7.7) Monocytes # (Auto) 1.2 TH/MM3 (0-0.9) Eosinophils # (Auto) 0.5 TH/MM3 (0-0.4) Calcium Level 8.0 MG/DL (8.5-10.1) Eosinophils (%) (Auto) 5.6 % (0.0-4.0) Vancomycin Level Trough 10.1 MCG/ML (5.0-10.0) Imaging Last Impressions Foot MRI 03/16/16 [id number] Signed Impressions: Service Date/Time: Wednesday, March 16, 2016 23:30 - CONCLUSION: Focal subcutaneous soft tissue ulcer of the medial arch with surrounding cellulitis and faint, reactive appearing marrow edema of the navicular. No abscess. No evidence of osteomyelitis. Julio Foster MD PE at Discharge GENERAL: Well-nourished, well-developed missed count male patient. SKIN: Warm and dry. HEAD: Normocephalic. EYES: No scleral icterus. No injection or drainage. NECK: Supple, trachea midline. No JVD or lymphadenopathy. CARDIOVASCULAR: Regular rate and rhythm without murmurs, gallops, or rubs. RESPIRATORY: Breath sounds equal bilaterally. No accessory muscle use. GASTROINTESTINAL: Abdomen soft, non-tender, nondistended. EXTREMITIES: No cyanosis, or edema. Right foot medial dorsum has a small wound at previous I and D site which is draining a scant amount of purulent discharge however no underlying abscess or induration is palpated, mild erythema, no streaking, and the foot is not warm to palpation. NEUROLOGICAL: Awake, alert, and oriented x 3. Non-focal. Hospital Course 60 year-old male who originally presented to hospital because of infection right foot. Patient does have history of IV drug use and was injecting himself Dilaudid [facility]. He Developed a Reddened Swollen Area. Incision and Drainage Was Done in Emergency Department. Culture was ascertain which did show growth of strep viridans. Patient was started on empirical antibiotics to include vancomycin. Patient was converted to by mouth clindamycin with continued improvement of his wound. Patient does have significant psychiatric history. Psychiatrist evaluated the patient and recommending continuation of medications. Podiatry was consulted who indicated patient in have by mouth medications and follow-up outpatient. Patient clinically stable this time. Very eager to be discharged. We'll make discharge plans with arrangement of outpatient antibiotics. Outpatient follow- up. Pt Condition on Discharge: Stable Discharge Disposition: Discharge Home Discharge Time: > 30 minutes Discharge Instructions DIET: Follow Instructions for: As Tolerated, No Restrictions Activities you can perform: Regular-No Restrictions Follow up Referrals: PCP Follow-up - 1 Week Podiatry - 2 Weeks with Kristina Cross DPM New Medications: Clindamycin (Cleocin) 150 Mg Cap 300 MG PO Q6HR abscess Days 14 CAP Continued Medications: Quetiapine (Seroquel) 200 Mg Tab 200 MG PO DAILY #30 Ref 0 TAB Sertraline (Zoloft) 25 Mg Tab 25 MG PO DAILY #30 Ref 0 TAB Additional Information Written by Jacob Concepcion PA-C, acting as scribe for Dr. Ortiz on 03/18/16 at 1000. The documentation accurately reflects the work and decisions performed face-to- face by Dr. Ortiz on 03/18/16 at 1000. Jacob Concepcion Mar 18, 2016 10:17
[2016-03-18 11:56] VITALS: BP 97/65; PULSE 67; RESP 18; TEMP 97.6; O2SAT 96
== END 2016-03-18 14:33 | disposition home or self-care (01) | DRG 603 ==
LOC: PHED 13:56 → PHEDA 15:48 → PH3A 20:39
PROVIDERS: ADMIT Family Medicine; ATTEND Family Medicine
PROC: 0J9Q0ZX Drainage of Right Foot Subcutaneous Tissue and Fascia, Open Approach, Diagnostic (ICD-10-PCS; principal; 2016-03-15)
DX: L02.611 Cutaneous abscess of right foot (principal); B19.20 Unspecified viral hepatitis C without hepatic coma; F19.10 Other psychoactive substance abuse, uncomplicated; F25.9 Schizoaffective disorder, unspecified; F17.210 Nicotine dependence, cigarettes, uncomplicated
CPT/HCPCS: 10060; 73720; 80048; 80202; 82565; 85025; 87070; 87205; 96365; A9579; J1644; J2060; J3370; J7040; J7050

== ENCOUNTER 2016-04-03 16:36 | Emergency (ER) | payer OTHER ==
[~2016-04-03] VITALS: Ht 180.3 cm; Wt 69.3 kg
[~2016-04-03 16:36] MED LIST changes: +CLIN150 PO; -DICL75 PO; -QUET200 PO; -ROBA750T3 PO; +SERO200T PO; -SERT-129 PO; +ZOLO25TA PO
[2016-04-03 16:50] VITALS: BP 123/84; PULSE 84; RESP 18; TEMP 97.6; O2SAT 95
[2016-04-03] MEDS ORDERED: BACT800T5 PO (18:14)
--- NOTE | 2016-04-03 18:14 | PD ---
HPI Chief Complaint: Musculoskeletal Complaint Time Seen by Provider: 18:06 Travel History International Travel<30 days: No Contact w/Intl Traveler<30days: No Traveled to known affect area: No History of Present Illness HPI This 60-year-old male is complaining of pain in his right foot. He was admitted to the hospital on March 15 with an abscess before. An I&D was done. He was in the hospital on IV antibiotics for several days. The abscess is improved currently is having residual pain. He has not had fever or chills. The abscess develop signs of an IV injection. He had an MRI which was negative for osteomyelitis he was in the hospital for several days. He was released on clindamycin. He has a history of schizoaffective disorder [facility] Past Medical History Blood Disorders: Yes Bipolar Disorder: Yes Anxiety: Yes Depression: Yes Congestive Heart Failure: No Cirrhosis: No Cerebrovascular Accident: No Diabetes: No Diminished Hearing: No Gastrointestinal Disorders: Yes (BLEEDING ULCERS) Hepatitis: Yes (Hep C) Hiatal Hernia: Yes (REPAIRED A CHILD) Musculoskeletal: Yes (CHRONIC LOW BACK) Neurologic: Yes Psychiatric: Yes Immunizations Current: No Myocardial Infarction: No Schizophrenia: Yes (SCHIZOAFFECTIVE) Seizures: Yes (R/T WITHDRAWAL) Ulcer: Yes Past Surgical History Abdominal Surgery: Yes (hernia repair) Appendectomy: Yes Other Surgery: Yes (2 cysts removed from neck) Social History Alcohol Use: No Tobacco Use: Yes (1 ppd) Substance Use: Yes (Dilaudid last use yesterday , cocaine last use a year ago ) Allergies-Medications (Allergen,Severity, Reaction): Coded Allergies: Aspirin (Verified Allergy, Severe, BLEEDING ULCERS, 04/03/16) Geodon (Verified Allergy, Severe, TONGUE SWELLING, 04/03/16) Iodine (Verified Allergy, Severe, Rash, 04/03/16) SKIN SLOUGHS OFF PER PT " GETS EATEN TO THE BONE" Klonopin (Verified Allergy, Severe, Hallucinations, 04/03/16) Paxil (Verified Allergy, Severe, Rash, 04/03/16) Reported Meds & Prescriptions Reported Meds & Active Scripts Active No Active Prescriptions or Reported Medications Review of Systems General / Constitutional: No: Fever, Chills Genitourinary: No: Urgency Skin: Positive Rash, Positive Lumps Physical Exam Narrative GENERAL: Well-developed male SKIN: Warm and dry. HEAD: Atraumatic. Normocephalic. EYES: Pupils equal and round. No scleral icterus. No injection or drainage. ENT: No nasal bleeding or discharge. Mucous membranes pink and moist. NECK: Trachea midline. No JVD. CARDIOVASCULAR: Regular rate and rhythm. No murmur appreciated. RESPIRATORY: No accessory muscle use. Clear to auscultation. Breath sounds equal bilaterally. GASTROINTESTINAL: Abdomen soft, non-tender, nondistended. Hepatic and splenic margins not palpable. MUSCULOSKELETAL: No obvious deformities. No clubbing. No cyanosis. No edema. The right foot there is an area of erythema with a central eschar. There is no palpable fluid underneath this area. This was the site of the previous abscess NEUROLOGICAL: Awake and alert. No obvious cranial nerve deficits. Motor grossly within normal limits. Normal speech. PSYCHIATRIC: Appropriate mood and affect; insight and judgment normal. Data Data Last Documented VS Vital Signs Date Time Temp Pulse Resp B/P Pulse Ox O2 Delivery O2 Flow Rate FiO2 04/03/16 16:50 97.6 84 18 123/84 95 MDM Medical Decision Making Medical Screen Exam Complete: Yes Emergency Medical Condition: Yes Medical Record Reviewed: Yes Differential Diagnosis Differential includes recurrent abscess, resolving abscess Narrative Course Assessment this appears to be resolving but there is some residual erythema. I' ll prescribe a week's worth of Bactrim. Diagnosis Primary Impression: resolving abscess Scripts Sulfamethoxazole-Trimethoprim (Bactrim DS)800-160 Mg Tab1 Tab PO BID #14 TAB Ref 0 Prov:Carlos Manuel Carmona MD 04/03/16 Disposition: 01 DISCHARGE HOME Condition: Stable Carlos Manuel Carmona MD Apr 03, 2016 18:14
== END 2016-04-03 18:25 | disposition home or self-care (01) ==
LOC: PHED 16:36 → PHEFT 18:25
DX: L02.611 Cutaneous abscess of right foot (principal); F17.210 Nicotine dependence, cigarettes, uncomplicated
CPT/HCPCS: 99283

== ENCOUNTER 2016-04-21 08:44 | Observation (INO) | payer OTHER ==
[2016-04-21] VITALS (13 sets, daily range): BP systolic 104–144; BP diastolic 57–92; PULSE 63–83; RESP 20; TEMP 97.5; O2SAT 95–99
[~2016-04-21 08:44] MED LIST changes: +BACT800T5 PO; -CLIN150 PO; -SERO200T PO; -ZOLO25TA PO
[2016-04-21] MEDS ORDERED: PSYCH MED (08:57)
[2016-04-21] MEDS ORDERED: SERO25TA PO (08:57)
--- NOTE | 2016-04-21 09:05 | PD ---
HPI Chief Complaint: Chest Pain Time Seen by Provider: 08:59 Travel History International Travel<30 days: No Contact w/Intl Traveler<30days: No Traveled to known affect area: No History of Present Illness HPI 60-year-old male complains of chest pain. Patient states that the chest pain started about half an hour prior coming to the emergency room. Patient states the pain aching pain localized left chest. Patient denies any pain radiation. Patient denies any palpitation nausea vomiting diaphoresis. Patient denies any coughing congestion fever chills. Patient denies history hypertension, diabetes , dyslipidemia. Patient is a smoker. Patient has family history of heart disease. Patient states that he had history of chest pain at year ago and was admitted to a hospital in [place]. Patient states that he had chemical stress test and treadmill stress test and had cardiac catheter during that hospitalization. Patient states that the tests were normal. Patient states that he is unable to tolerate aspirin secondary to GI bleed. Patient states that he has been abusing cocaine and Dilaudid recently. Last Dilaudid was 3 days ago and last cocaine was 2 days ago. Patient denies alcohol abuse. PFSH Past Medical History Blood Disorders: Yes Bipolar Disorder: Yes Anxiety: Yes Depression: Yes Congestive Heart Failure: No Cirrhosis: No Cerebrovascular Accident: No Diabetes: No Diminished Hearing: No Gastrointestinal Disorders: Yes (BLEEDING ULCERS) Hepatitis: Yes (Hep C) Hiatal Hernia: Yes (REPAIRED A CHILD) Musculoskeletal: Yes (CHRONIC LOW BACK) Neurologic: Yes Psychiatric: Yes Immunizations Current: No Myocardial Infarction: No Schizophrenia: Yes (SCHIZOAFFECTIVE) Seizures: Yes (R/T WITHDRAWAL) Ulcer: Yes Past Surgical History Abdominal Surgery: Yes (hernia repair) Appendectomy: Yes Neurologic Surgery: No Other Surgery: Yes (2 cysts removed from neck) Social History Alcohol Use: No Tobacco Use: Yes (1 ppd) Substance Use: Yes (DILAUDID IV, COCAINE) Allergies-Medications (Allergen,Severity, Reaction): Coded Allergies: Aspirin (Verified Allergy, Severe, BLEEDING ULCERS, 04/21/16) Geodon (Verified Allergy, Severe, TONGUE SWELLING, 04/21/16) Iodine (Verified Allergy, Severe, Rash, 04/21/16) SKIN SLOUGHS OFF PER PT " GETS EATEN TO THE BONE" Klonopin (Verified Allergy, Severe, Hallucinations, 04/21/16) Paxil (Verified Allergy, Severe, Rash, 04/21/16) Reported Meds & Prescriptions Reported Meds & Active Scripts Active Reported [Psych Med] Seroquel (Quetiapine Fumarate) 25 Mg Tab Unknown Dose PO BID Review of Systems General / Constitutional: No: Fever Eyes: No: Visual changes HENT: No: Headaches Cardiovascular: Positive: Chest Pain or Discomfort Respiratory: No: Shortness of Breath Gastrointestinal: No: Abdominal Pain Genitourinary: No: Dysuria Musculoskeletal: No: Pain Skin: No Rash Neurologic: No: Weakness Psychiatric: No: Depression Endocrine: No: Polydipsia Hematologic/Lymphatic: No: Easy Bruising Physical Exam Narrative GENERAL: Well-nourished, well-developed patient. SKIN: Warm and dry. HEAD: Normocephalic. EYES: No scleral icterus. No injection or drainage. NECK: Supple, trachea midline. No JVD or lymphadenopathy. CARDIOVASCULAR: Regular rate and rhythm without murmurs, gallops, or rubs. RESPIRATORY: Breath sounds equal bilaterally. No accessory muscle use. GASTROINTESTINAL: Abdomen soft, non-tender, nondistended. MUSCULOSKELETAL: No cyanosis, or edema. BACK: Nontender without obvious deformity. No CVA tenderness. Neurologic exam normal. Data Data Last Documented VS Vital Signs Date Time Temp Pulse Resp B/P Pulse Ox O2 Delivery O2 Flow Rate FiO2 04/21/16 10:44 67 20 119/79 98 04/21/16 08:52 97.5 Orders Electrocardiogram (04/21/16 08:59) Complete Blood Count With Diff (04/21/16 08:59) Comprehensive Metabolic Panel (04/21/16 08:59) Creatine Kinase (Cpk) (04/21/16 08:59) Troponin I (04/21/16 08:59) Prothrombin Time / Inr (Pt) (04/21/16 08:59) Act Partial Throm Time (Ptt) (04/21/16 08:59) Drug Screen, Random Urine (04/21/16 08:59) Chest, Single Ap (04/21/16 08:59) Iv Access Insert/Monitor (04/21/16 08:59) Ecg Monitoring (04/21/16 08:59) Oximetry (04/21/16 08:59) Labs Laboratory Tests Test 04/21/16 09:00 White Blood Count 6.9 TH/MM3 Red Blood Count 4.34 MIL/MM3 Hemoglobin 13.1 GM/DL Hematocrit 38.7 % Mean Corpuscular Volume 89.3 FL Mean Corpuscular Hemoglobin 30.3 PG Mean Corpuscular Hemoglobin 33.9 % Concent Red Cell Distribution Width 13.1 % Platelet Count 205 TH/MM3 Mean Platelet Volume 9.1 FL Neutrophils (%) (Auto) 60.9 % Lymphocytes (%) (Auto) 28.0 % Monocytes (%) (Auto) 6.9 % Eosinophils (%) (Auto) 3.1 % Basophils (%) (Auto) 1.1 % Neutrophils # (Auto) 4.2 TH/MM3 Lymphocytes # (Auto) 1.9 TH/MM3 Monocytes # (Auto) 0.5 TH/MM3 Eosinophils # (Auto) 0.2 TH/MM3 Basophils # (Auto) 0.1 TH/MM3 CBC Comment DIFF FINAL Differential Comment Prothrombin Time 10.4 SEC Prothromb Time International 0.9 RATIO Ratio Activated Partial 25.7 SEC Thromboplast Time Sodium Level 142 MEQ/L Potassium Level 3.6 MEQ/L Chloride Level 108 MEQ/L Carbon Dioxide Level 22.7 MEQ/L Anion Gap 11 MEQ/L Blood Urea Nitrogen 14 MG/DL Creatinine 0.80 MG/DL Estimat Glomerular Filtration 99 ML/MIN Rate Random Glucose 109 MG/DL Calcium Level 8.3 MG/DL Total Bilirubin 0.3 MG/DL Aspartate Amino Transf 29 U/L (AST/SGOT) Alanine Aminotransferase 34 U/L (ALT/SGPT) Alkaline Phosphatase 71 U/L Total Creatine Kinase 80 U/L Troponin I LESS THAN 0.02 NG/ML Total Protein 7.0 GM/DL Albumin 3.1 GM/DL MDM Medical Decision Making Medical Screen Exam Complete: Yes Emergency Medical Condition: Yes Interpretation(s) 10:48 AM. EKG shows sinus rhythm with left anterior fascicular block. Last Impressions Chest X-Ray 04/21/16 0859 Signed Impressions: Service Date/Time: Thursday, April 21, 2016 09:09 - CONCLUSION: No acute disease. Tree Sandoval MD FACR 10:48 AM. CBC within normal limit. CMP within normal limit. Cardiac enzymes are normal. Differential Diagnosis Differential diagnosis including angina, MO, PE, pneumothorax. Narrative Course 60-year-old male left-sided chest pain. History of substance abuse including Dilaudid and cocaine. Patient had normal cardiac catheter a year ago. Diagnosis Primary Impression: Chest pain Qualified Code: R07.9 - Chest pain, unspecified type Additional Impression: Substance abuse Sung Concepcion MD Apr 21, 2016 09:05
[2016-04-21 09:11] LABS: AUTOMATED NEUTROPHIL # 4.2 TH/MM3 (1.8-7.7); BASOPHIL # 0.1 TH/MM3 (0-0.2); BASOPHIL % 1.1 % (0.0-2.0); EOSINOPHIL # 0.2 TH/MM3 (0-0.4); EOSINOPHIL % 3.1 % (0.0-4.0); HEMATOCRIT 38.7 % (39.0-51.0); HEMO FLAGS DIFF FINAL; LYMPHOCYTE # 1.9 TH/MM3 (1.0-4.8); MEAN CELL VOLUME 89.3 FL (80.0-100.0); MEAN CORPUSCULAR HEMOGLOBIN 30.3 PG (27.0-34.0); MEAN CORPUSCULAR HGB CONC 33.9 % (32.0-36.0); MONO % 6.9 % (0.0-8.0); NEUT % 60.9 % (16.0-70.0); PLATELET COUNT 205 TH/MM3 (150-450); RED BLOOD COUNT 4.34 MIL/MM3 (4.50-5.90); RED CELL DISTRIBUTION WIDTH 13.1 % (11.6-17.2); WHITE BLOOD COUNT 6.9 TH/MM3 (4.0-11.0)
--- NOTE | 2016-04-21 09:18 | RADHPO ---
EXAM DATE/TIME: 04/21/2016 09:09 [facility] COMPARISON: CHEST SINGLE AP, December 13, 2015, 12:48. INDICATIONS : Chest pain. MEDICAL HISTORY : Ulcers. Hepatitis C. IVDU. SURGICAL HISTORY : Umbilical hernia repair. Knee cartilage repair. ENCOUNTER: Initial ACUITY: 1 day PAIN SCORE: 8/10 LOCATION: Left chest FINDINGS: A single view of the chest demonstrates the lungs to be symmetrically aerated without evidence of mas s, infiltrate or effusion. The cardiomediastinal contours are unremarkable. Osseous structures are intact. CONCLUSION: No acute disease. Tree Sandoval MD FACR on April 21, 2016 at 9:17 Board Certified Radiologist. This report was verified electronically.
[2016-04-21 09:32] LABS: APTT (PATIENT) 25.7 SEC (24.3-30.1); INTERNATIONAL NORMALIZED RATIO 0.9 RATIO; PROTHROMBIN TIME - PATIENT 10.4 SEC (9.8-11.6)
[2016-04-21 09:34] LABS: BLOOD UREA NITROGEN 14 MG/DL (7-18); GLOMERULAR FILTRATION RATE 99 ML/MIN (>89)
[2016-04-21 09:35] LABS: CHLORIDE 108 MEQ/L (98-107); POTASSIUM 3.6 MEQ/L (3.5-5.1); SODIUM (NA) 142 MEQ/L (136-145)
[2016-04-21 09:54] LABS: ANION GAP 11 MEQ/L (5-15); BICARBONATE 22.7 MEQ/L (21.0-32.0)
[2016-04-21 09:56] LABS: TOTAL BILIRUBIN ADULT 0.3 MG/DL (0.2-1.0)
[2016-04-21 09:57] LABS: ALKALINE PHOSPHATASE 71 U/L (45-117); ALT (GPT) 34 U/L (12-78)
[2016-04-21 10:01] LABS: AST (GOT) 29 U/L (15-37)
[2016-04-21 10:12] LABS: CREATINE KINASE 80 U/L (39-308)
[2016-04-21] MEDS ORDERED: ONDANSETRON HCL 4 MG/2 ML VIAL IV PRN (11:15)
[2016-04-21] MEDS ORDERED: NITROGLYCERIN 0.4 MG SL 25 TABS/BTL SL PRN (11:15)
[2016-04-21] MEDS ORDERED: ACETAMINOPHEN 500 MG CPLT PO PRN (11:15)
[2016-04-21] MEDS ORDERED: SODIUM CHLORIDE 0.9% FLUSH 5 ML FLUSH IVF PRN (11:15)
[2016-04-21 12:28] LABS: CREATINE KINASE 94 U/L (39-308)
--- NOTE | 2016-04-21 13:48 | HHI.HP ---
[facility] Primary Care Physician No Primary Care Physician Admission Diagnosis chest pain. Substance abuse. Diagnoses: (1) Chest pain Diagnosis: Principal (2) Substance abuse Diagnosis: Principal Chief Complaint: Left sided chest pain Travel History International Travel<30 Days: No Contact w/Intl Traveler <30 Da: No Traveled to Known Affected Are: No History of Present Illness 60-year-old male with known history of hepatitis C, schizoaffective disorder, IV drug use, polysubstance abuse who presented to hospital because of chest pain. Patient states that he started developing chest pain approximately 2-3 days ago when he was lifting his arm over his head to work any ceiling fan. Patient states that he has been continue to using IV drugs to include Dilaudid 4 mg daily, and cocaine. States last time he injected was yesterday. This morning he woke up and when he was taking a shower he felt the pain in the left side of his chest, he points to the lateral side of his chest his rib cage. He denies any heavy lifting or straining, no falls or injury. He denies any nausea, vomiting, diaphoresis, radiation of pain, shortness of breath, dyspnea. Patient has no previous cardiac history, no previous cardiac workup. Patient was evaluated in emergency department and is recommended patient be observed in the chest pain center for further evaluation and management. Review of Systems Constitutional: DENIES: Diaphoretic episodes, Fatigue, Fever, Weight gain, Weight loss, Chills, Dizziness, Change in appetite, Night Sweats Eyes: DENIES: Blurred vision, Diplopia, Eye inflammation, Eye pain, Vision loss , Double Vision Ears, nose, mouth, throat: DENIES: Vertigo, Nasal discharge, Throat pain, Ear Pain, Running Nose, Sinus Pain Respiratory: DENIES: Apneas, Cough, Snoring, Wheezing, Hemoptysis, Sputum production, Shortness of breath Cardiovascular: COMPLAINS OF: Chest pain, DENIES: Palpitations, Syncope, Dyspnea on Exertion, Lower Extremity Edema, Orthopnea Gastrointestinal: DENIES: Abdominal pain, Black stools, Bloody stools, Constipation, Diarrhea, Nausea, Vomiting, Difficulty Swallowing, Anorexia Neurologic: DENIES: Abnormal gait, Headache, Localized weakness, Paresthesias, Seizures, Speech Problems, Tremor, Poor Balance Past Family Social History Past Medical History Schizoaffective disorder History of ulcers Hepatitis C History of withdrawal seizures IV drug abuse Past Surgical History Inguinal hernia repair Appendectomy 2 cysts removed from neck Reported Medications Reported Meds & Active Scripts Active Reported [Psych Med] Seroquel (Quetiapine Fumarate) 25 Mg Tab Unknown Dose PO BID Allergies: Coded Allergies: Aspirin (Verified Allergy, Severe, BLEEDING ULCERS, 04/21/16) Geodon (Verified Allergy, Severe, TONGUE SWELLING, 04/21/16) Iodine (Verified Allergy, Severe, Rash, 04/21/16) SKIN SLOUGHS OFF PER PT " GETS EATEN TO THE BONE" Klonopin (Verified Allergy, Severe, Hallucinations, 04/21/16) Paxil (Verified Allergy, Severe, Rash, 04/21/16) Family History Mother had leukemia. Social History Smokes one pack per day. Patient actively using IV drugs with Dilaudid and cocaine Physical Exam Vital Signs Vital Signs Date Time Temp Pulse Resp B/P Pulse Ox O2 Delivery O2 Flow Rate FiO2 04/21/16 13:37 70 20 104/57 96 04/21/16 12:41 66 20 117/80 97 04/21/16 11:39 68 20 117/82 98 04/21/16 10:44 67 20 119/79 98 04/21/16 09:47 63 20 110/75 97 04/21/16 09:07 96 04/21/16 08:52 97.5 75 20 104/70 95 Physical Exam GENERAL: Well-developed, well-nourished, in no acute distress. alert and orientated. Patient does have some mild tremors, possible developing withdrawal symptoms HEENT: Head is normocephalic without any lesions or masses noted. Facial features are symmetric. Eyes: Pupils equal round reactive to light. Extraocular muscles are intact. Conjunctivae were clear. Oropharyngeal: Pharynx without any erythema edema. Tongue is midline without deviation. Buccal mucosa is moist without any masses or lesions NECK: Supple without any masses. Trachea midline no deviation. No JVD, no bruits are appreciated CARDIAC: Regular rhythm, regular rate. S1/S2 are heard. No murmurs gallops or rubs. Reproducible palpable tenderness along the left lateral chest LUNGS: Clear to auscultation bilaterally. No wheeze, rhonchi or rales. No use of accessory muscles on inspiration or expiration. ABDOMEN: Soft, nontender. Nondistended. Bowel sounds heard in all 4 quadrants. No organomegaly or masses. Negative rebound, negative guarding EXTREMITIES: No edema, pulses are equal bilaterally. No cyanosis or clubbing NEUROLOGY: Mood and affect appear appropriate. Cranial nerves II through XII grossly intact. Muscle strength 5/5 in upper and lower extremities bilaterally. Deep tendon reflexes are 2+ in upper and lower extremities bilaterally. Laboratory Laboratory Tests Test 04/21/16 04/21/16 09:00 12:00 White Blood Count 6.9 Red Blood Count 4.34 Hemoglobin 13.1 Hematocrit 38.7 Mean Corpuscular Volume 89.3 Mean Corpuscular Hemoglobin 30.3 Mean Corpuscular Hemoglobin 33.9 Concent Red Cell Distribution Width 13.1 Platelet Count 205 Mean Platelet Volume 9.1 Neutrophils (%) (Auto) 60.9 Lymphocytes (%) (Auto) 28.0 Monocytes (%) (Auto) 6.9 Eosinophils (%) (Auto) 3.1 Basophils (%) (Auto) 1.1 Neutrophils # (Auto) 4.2 Lymphocytes # (Auto) 1.9 Monocytes # (Auto) 0.5 Eosinophils # (Auto) 0.2 Basophils # (Auto) 0.1 CBC Comment DIFF FINAL Differential Comment Prothrombin Time 10.4 Prothromb Time International 0.9 Ratio Activated Partial 25.7 Thromboplast Time Sodium Level 142 Potassium Level 3.6 Chloride Level 108 Carbon Dioxide Level 22.7 Anion Gap 11 Blood Urea Nitrogen 14 Creatinine 0.80 Estimat Glomerular Filtration 99 Rate Random Glucose 109 Calcium Level 8.3 Total Bilirubin 0.3 Aspartate Amino Transf 29 (AST/SGOT) Alanine Aminotransferase 34 (ALT/SGPT) Alkaline Phosphatase 71 Total Creatine Kinase 80 94 Troponin I LESS THAN 0.02 LESS THAN 0.02 Total Protein 7.0 Albumin 3.1 Result Diagram: 04/21/1689904/21/16 09 Imaging Last Impressions Chest X-Ray 04/21/16 0859 Signed Impressions: Service Date/Time: Thursday, April 21, 2016 09:09 - CONCLUSION: No acute disease. Tree Sandoval MD FACR Assessment and Plan Assessment and Plan Chest pain, left lateral chest Patient risk factor to include age, tobacco use, cocaine abuse Serial cardiac enzymes thus far negative and ruled out any acute coronary event Serial EKGs show sinus rhythm sinus rhythm with left anterior fascicular block We'll pursue nuclear stress test rule out any underlying ischemia Continue nitroglycerin as needed Polysubstance abuse with IV drug use to include Dilaudid and cocaine Patient was counseled extensively that IV drug, especially with cocaine can lead to chest pain, heart attack, patient was counseled to discontinue drug use We'll give Dilaudid 2 mg by mouth 1 now for pain control Ativan 1 mg by mouth every 8 hours as needed for withdrawal symptoms DVT prevention Sequential compression devices Written by Jacob Concepcion PA-C, acting as scribe for Dr. Ortiz on 04/21/16 at 1350. The documentation accurately reflects the work and decisions performed face-to- face by Dr. Ortiz on 04/21/16 at 1350. Discharge disposition Discharge home in stable condition stress test is negative Activity: Ad caryl. Diet: Healthy heart diet Medications per medication reconciliation Follow-up primary medical doctor in one week Problem Qualifiers (1) Chest pain: Qualified Code: R07.9 - Chest pain, unspecified type Jacob Concepcion Apr 21, 2016 13:48
[2016-04-21] MEDS ORDERED: HYDROmorphone HCL 2 MG TAB PO ONE (14:30)
[2016-04-21] MEDS ORDERED: LORazepam 1 MG TAB PO PRN (14:30)
--- NOTE | 2016-04-21 14:58 | HHI.DCPOC ---
Discharge Care Plan Diagnosis: (1) Chest pain (2) Substance abuse Your Health Problems Are: Chest Pain Goals to Promote Your Health * To prevent worsening of your condition and complications * To maintain your health at the optimal level Directions to Meet Your Goals Take your medications as prescribed Follow your dietary instruction Follow activity as directed Keep your appointments as scheduled Take your immunizations and boosters as scheduled If your symptoms worsen call your PCP, if no PCP go to Urgent Care Center or Emergency Room Smoking is Dangerous to Your Health. Avoid second hand smoke Call the 24-hour hour crisis hotline for domestic abuse at Jacob Concepcion Apr 21, 2016 14:58
[2016-04-21 15:18] LABS: CREATINE KINASE 75 U/L (39-308)
[2016-04-21] MEDS ORDERED: REGADENOSON INJ 0.4 MG/5 ML SYR IV ONE (15:27)
--- NOTE | 2016-04-21 16:25 | RADHPO ---
EXAM DATE/TIME: 04/21/2016 15:31 [facility] COMPARISON: No previous studies available for comparison. INDICATIONS: Left sided chest pain for 1 day. Cardiac cath and current smoker. Angina. DOSE: 25.6 mCi Tc99m Myoview at stress. 8.2 mCi Tc99m Myoview at rest. 0.4 mg Lexiscan STRESS SYMPTOMS: Left leg pain. EJECTION FRACTION: 65% MEDICAL HISTORY: Hypercholesterolemia. Hypertension. Bi-polar. SURGICAL HISTORY: Inguinal hernia repair. Back surgery and cardiac cath. ENCOUNTER: Initial ACUITY: 1 day PAIN SCALE: 2/10 LOCATION: Bilateral chest TECHNIQUE: The patient underwent pharmacologic stress with infusion of prescribed dose. Continuous ECG tracing was monitored during stress. Gated SPECT imaging was performed after stress and conventional SPECT i maging was performed at rest. The examination was performed on a SPECT/CT scanner, both attenuation and non-corrected datasets were reviewed. FINDINGS: The gated Cine loop images demonstrate no focal wall motion abnormality. The left ventricular ejecti on fraction is calculated at 65%. The cardiac SPECT stress and rest images demonstrate no fixed or reversible defect to suggest infarct or ischemia. CONCLUSION: No infarct, ischemia or focal wall motion abnormality. Left ventricular ejection fraction is calcula jonatan at 65%. RISK CATEGORY: Low risk (less than 1% annual mortality rate). Tyson Harris MD on April 21, 2016 at 16:21 Board Certified Radiologist. This report was verified electronically.
[2016-04-21] MEDS ORDERED: SODIUM CHLORIDE 0.9% FLUSH 5 ML FLUSH IVF SCH (21:00)
--- NOTE | 2016-04-22 17:03 | TR ---
Date Performed: 04/21/2016 Time Performed: 15:36:46 DOCTOR: Charleen Lemos DRUG LIST: CLINICAL HISTORY: CHEST PAIN REASON FOR TEST: REASON FOR ENDING: OBSERVATION: CONCLUSION: Lexiscan stress test was performed under standard four minute protocol. Radionuclid e was injected one minute prior to ending the test. No electrocardiographic abormalities were present to suggest ischemia. Nuclear imaging and interpretation are pending. COMMENTS:
--- NOTE | 2016-04-22 17:46 | EKG ---
Date Performed: 04/21/2016 Time Performed: 08:48:22 PTAGE: 60 years EKG: Sinus rhythm . Left anterior fascicular block Since previous tracing, no significant change noted Borderline ECG PREVIOUS TRACING : 02/06/2012 20.20 DOCTOR: Hermilo Solorio Interpretating Date/Time 04/22/2016 17:44:49
== END 2016-04-21 18:16 | disposition home or self-care (01) ==
LOC: PHED 08:44 → PHEDA 11:07 → PHEDH 16:05
PROVIDERS: ADMIT Family Medicine; ATTEND Family Medicine
DX: R07.9 Chest pain, unspecified (principal); F14.10 Cocaine abuse, uncomplicated; F11.10 Opioid abuse, uncomplicated; R94.31 Abnormal electrocardiogram [ECG] [EKG]; F25.9 Schizoaffective disorder, unspecified; F31.9 Bipolar disorder, unspecified; F17.210 Nicotine dependence, cigarettes, uncomplicated; Z82.49 Family history of ischemic heart disease and other diseases of the circulatory system
CPT/HCPCS: 71010; 78452; 80053; 82550; 84484; 85025; 85610; 85730; 93005; 93017; 99285; A9502; G0378; J2785

== ENCOUNTER 2016-05-20 08:24 | Emergency (ER) | payer SELFPAY ==
[~2016-05-20] VITALS: Ht 180.3 cm; Wt 70.0 kg
[~2016-05-20 08:24] MED LIST changes: -BACT800T5 PO; +PSYCH MED; +SERO25TA PO
[2016-05-20 08:26] VITALS: BP 150/64; PULSE 87; RESP 20; TEMP 97.4; O2SAT 97
[2016-05-20] MEDS ORDERED: NAPR500T PO (09:08)
--- NOTE | 2016-05-20 09:10 | PD ---
HPI Chief Complaint: Pain: Acute or Chronic Time Seen by Provider: 09:03 Travel History International Travel<30 days: No Contact w/Intl Traveler<30days: No Traveled to known affect area: No History of Present Illness HPI 60-year-old male presents to the emergency department for evaluation right foot pain that has been ongoing since he had abscess to his right foot in February 2016. However, he states his been worsening over the past several weeks. Patient denies any recent trauma. He states the last time he injected and his foot was when he was here with the abscess. He does report history of IV drug use, using Dilaudid. Patient denies any fevers or chills. No chest pain or shortness of breath. No abdominal pain. No nausea or vomiting. Patient has not followed up outpatient for this issue. He denies any other complaints at this time. PFSH Past Medical History Blood Disorders: Yes (Hep C) Bipolar Disorder: Yes Anxiety: Yes Depression: Yes Heart Rhythm Problems: No Cancer: No Cardiovascular Problems: Yes High Cholesterol: No Chest Pain: Yes Congestive Heart Failure: No Cirrhosis: No Cerebrovascular Accident: No Diabetes: No Diminished Hearing: No Endocrine: No Gastrointestinal Disorders: Yes (BLEEDING ULCERS) Genitourinary: No Hepatitis: Yes (Hep C) Hiatal Hernia: Yes (REPAIRED A CHILD) Musculoskeletal: Yes (CHRONIC LOW BACK) Neurologic: Yes Psychiatric: Yes Reproductive: No Respiratory: No Immunizations Current: No Myocardial Infarction: No Schizophrenia: Yes (SCHIZOAFFECTIVE) Seizures: Yes (R/T WITHDRAWAL) Thyroid Disease: No Ulcer: Yes Past Surgical History Abdominal Surgery: Yes (hernia repair) Appendectomy: Yes Neurologic Surgery: No Other Surgery: Yes (2 cysts removed from neck) Social History Alcohol Use: No Tobacco Use: Yes (1 ppd) Substance Use: Yes (DILAUDID IV, COCAINE) Allergies-Medications (Allergen,Severity, Reaction): Coded Allergies: Aspirin (Verified Allergy, Severe, BLEEDING ULCERS, 04/21/16) Geodon (Verified Allergy, Severe, TONGUE SWELLING, 04/21/16) Iodine (Verified Allergy, Severe, Rash, 04/21/16) SKIN SLOUGHS OFF PER PT " GETS EATEN TO THE BONE" Klonopin (Verified Allergy, Severe, Hallucinations, 04/21/16) Paxil (Verified Allergy, Severe, Rash, 04/21/16) Reported Meds & Prescriptions Reported Meds & Active Scripts Active Naproxen 500 Mg Tab 500 Mg PO BID PRN Reported [Psych Med] Seroquel (Quetiapine Fumarate) 25 Mg Tab Unknown Dose PO BID Review of Systems Except as stated in HPI: all other systems reviewed are Neg Physical Exam Narrative GENERAL: Well-developed well-nourished male patient, ambulatory. Afebrile. SKIN: Warm and dry. No skin changes noted to right foot. No erythema, no warmth, no swelling. No evidence of cellulitis or infection at this time. HEAD: Normocephalic. Atraumatic. EYES: No scleral icterus. No injection or drainage. NECK: Supple, trachea midline. No JVD or lymphadenopathy. CARDIOVASCULAR: Regular rate and rhythm without murmurs, gallops, or rubs. Right pedal pulses 2+. Capillary refill is less than 2 seconds to the digits of the right foot. RESPIRATORY: Breath sounds equal bilaterally. No accessory muscle use. Lungs sounds are clear to auscultation. GASTROINTESTINAL: Abdomen soft, non-tender, nondistended. MUSCULOSKELETAL: No cyanosis, or edema. Patient has subjective sensation to the right distal foot. However, he does report some paresthesias to the distal aspect of the right foot. No tenderness to palpation. BACK: Nontender without obvious deformity. No CVA tenderness. Data Data Last Documented VS Vital Signs Date Time Temp Pulse Resp B/P Pulse Ox O2 Delivery O2 Flow Rate FiO2 05/20/16 08:26 97.4 87 20 150/64 97 MDM Medical Decision Making Medical Screen Exam Complete: Yes Emergency Medical Condition: Yes Medical Record Reviewed: Yes Differential Diagnosis Chronic foot pain versus peripheral neuropathy versus foot injury Narrative Course 60-year-old male presents to the emergency department for evaluation of right foot pain for 3 months. This exam reveals no evidence of infection or evidence of bony injury. He denies any injury. Patient will be discharged with a prescription for naproxen he is encouraged to follow-up with his primary care physician. He is encouraged to return for any acute worsening of symptoms. Diagnosis Primary Impression: Chronic foot pain Qualified Code: M79.671 - Chronic foot pain, right Referrals: Primary Care Physician call for appointment Patient Instructions: General Instructions, Peripheral Neuropathy (ED) Additional Instructions: Elevate your right leg. Take naproxen as instructed as needed for pain. Follow-up with your primary care physician. Return to the emergency department for any acute worsening of symptoms. Med/Other Pt SpecificInfo: Prescription(s) given Scripts Naproxen 500 Mg Toq129 Mg PO BID PRN (PAIN SCALE 1 TO 10) #20 TAB Ref 0 Prov:Charlene King 05/20/16 Disposition: 01 DISCHARGE HOME Condition: Stable Charlene King May 20, 2016 09:09
== END 2016-05-20 09:23 | disposition home or self-care (01) ==
LOC: NEPB 08:24
DX: M79.671 Pain in right foot (principal); G89.29 Other chronic pain; F17.210 Nicotine dependence, cigarettes, uncomplicated; F11.90 Opioid use, unspecified, uncomplicated; F14.90 Cocaine use, unspecified, uncomplicated
CPT/HCPCS: 99283

== ENCOUNTER 2016-12-11 13:50 | Emergency (ER) | payer SELFPAY ==
[~2016-12-11] VITALS: Ht 180.3 cm; Wt 68.0 kg
[~2016-12-11 13:50] MED LIST changes: +NAPR500T PO
[2016-12-11 14:32] VITALS: BP 93/62; PULSE 77; RESP 16; TEMP 98; O2SAT 95
[2016-12-11] MEDS ORDERED: ZOLO50TA PO (14:48)
[2016-12-11] MEDS ORDERED: CLINDAMYCIN PHOS 900 MG/6 ML VIAL IM ONE (15:15)
[2016-12-11] MEDS ORDERED: LIDOCAINE HCL 1% 50 ML VIAL INFIL ONE (15:15)
[2016-12-11] MEDS ORDERED: BACT800T5 PO (15:26)
--- NOTE | 2016-12-11 15:26 | PD ---
HPI Chief Complaint: Skin Problem Time Seen by Provider: 15:08 Travel History International Travel<30 days: No Contact w/Intl Traveler<30days: No Traveled to known affect area: No History of Present Illness HPI 61-year-old male presents to the emergency room for evaluation of an abscess to his left upper back that started a few days ago. Patient states his girlfriend tried to squeeze it last night and got a moderate amount of drainage. Since then he has had pain surrounding it going into his neck and back. He has not taken anything for symptoms. He denies fever, chills, nausea, vomiting. No chronic medical conditions other than psychiatric. PFSH Past Medical History Blood Disorders: Yes (Hep C) Bipolar Disorder: Yes Anxiety: Yes Depression: Yes Heart Rhythm Problems: No Cancer: No Cardiovascular Problems: Yes High Cholesterol: No Chest Pain: Yes Congestive Heart Failure: No Cirrhosis: No Cerebrovascular Accident: No Diabetes: No Diminished Hearing: No Endocrine: No Gastrointestinal Disorders: Yes (BLEEDING ULCERS) Genitourinary: No Hepatitis: Yes (Hep C) Hiatal Hernia: Yes (REPAIRED A CHILD) Musculoskeletal: Yes (CHRONIC LOW BACK) Neurologic: Yes Psychiatric: Yes Reproductive: No Respiratory: No Immunizations Current: No Myocardial Infarction: No Schizophrenia: Yes (SCHIZOAFFECTIVE) Seizures: Yes (R/T WITHDRAWAL) Thyroid Disease: No Ulcer: Yes Past Surgical History Abdominal Surgery: Yes (hernia repair) Appendectomy: Yes Neurologic Surgery: No Other Surgery: Yes (2 cysts removed from neck) Social History Alcohol Use: No Tobacco Use: Yes (1 ppd) Substance Use: Yes (DILAUDID IV, COCAINE) Allergies-Medications (Allergen,Severity, Reaction): Coded Allergies: aspirin (Unverified Allergy, Severe, BLEEDING ULCERS, 12/11/16) clonazepam (Unverified Allergy, Severe, Hallucinations, 12/11/16) iodine (Unverified Allergy, Severe, Rash, 12/11/16) SKIN SLOUGHS OFF PER PT " GETS EATEN TO THE BONE" paroxetine (Unverified Allergy, Severe, Rash, 12/11/16) potassium iodide (Unverified Allergy, Severe, Rash, 12/11/16) SKIN SLOUGHS OFF PER PT " GETS EATEN TO THE BONE" povidone-iodine (Unverified Allergy, Severe, Rash, 12/11/16) SKIN SLOUGHS OFF PER PT " GETS EATEN TO THE BONE" sodium iodide (Unverified Allergy, Severe, Rash, 12/11/16) SKIN SLOUGHS OFF PER PT " GETS EATEN TO THE BONE" sodium iodide (Unverified Allergy, Severe, Rash, 12/11/16) SKIN SLOUGHS OFF PER PT " GETS EATEN TO THE BONE" ziprasidone (Unverified Allergy, Severe, TONGUE SWELLING, 12/11/16) Reported Meds & Prescriptions Reported Meds & Active Scripts Active Reported Zoloft (Sertraline HCl) 50 Mg Tab 50 Mg PO DAILY Seroquel (Quetiapine Fumarate) 25 Mg Tab Unknown Dose PO BID Review of Systems Except as stated in HPI: all other systems reviewed are Neg Physical Exam Narrative GENERAL: Well-nourished, well-developed male in no acute distress. Afebrile. Ambulatory. SKIN: Focused skin assessment warm/dry. There is an indurated area in the left upper back which measures about 4 cm in diameter. It is fluctuant with pointing and drainage. There is a zone of inflammation around it but no lymphangitis. HEAD: Normocephalic. EYES: No scleral icterus. No injection or drainage. NECK: Supple, trachea midline. No JVD or lymphadenopathy. CARDIOVASCULAR: Regular rate and rhythm without murmurs, gallops, or rubs. RESPIRATORY: Breath sounds equal bilaterally. No accessory muscle use. PSYCHIATRIC: No delusional thought processes. No hallucinations. Data Data Last Documented VS Vital Signs Date Time Temp Pulse Resp B/P (MAP) Pulse Ox O2 Delivery O2 Flow Rate FiO2 12/11/16 14:32 98.0 77 16 93/62 (72) 95 Orders Orders Lidocaine 1% Inj (50 Ml) (Xylocaine 1% I (12/11/16 15:15) Clindamycin Inj (Cleocin Inj) (12/11/16 15:15) MDM Medical Decision Making Medical Screen Exam Complete: Yes Emergency Medical Condition: Yes Medical Record Reviewed: Yes Differential Diagnosis Abscess, cellulitis, lymphangitis Narrative Course 61-year-old male presents to the emergency room for evaluation of abscess to his left upper back that started a few days ago. Patient states his girlfriend tried to squeeze it last night and got a moderate amount of drainage. Since then he has had worsening pain surrounding the area. No history of fever, chills, nausea, vomiting. 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 Physical exam reveals a 4 cm area of induration to the left upper back. There is surrounding erythema extending longterm down the back. It is not extremely hot or bright red. Could be evolving cellulitis or inflammation from squeezing last night. Patient will be given loading dose of clindamycin in the emergency room. States he will not be able to afford outpatient clindamycin so he'll be discharged with prescriptions for Bactrim. Told to follow up with the primary care physician or return for worsening symptoms. These to plan. Abscess was drained, see procedure note for details. Procedures Procedure Narrative INCISION AND DRAINAGE OF ABSCESS: The area was prepped and was sterilely draped. A subcutaneous wheal of 1% lidocaine with a total number 3 mL was used to anesthetize the area properly. A number 11 scalpel was used to make a 1 cm incision across the area of the abscess. The abscess was drained, complex loculations were broken down, and irrigated with normal saline. Sterile dressing applied. Diagnosis Primary Impression: Abscess Referrals: Primary Care Physician Additional Instructions: Rest and drink plenty of fluids. Take Bactrim as directed, until gone. Follow up with a primary care physician. Return to emergency room for worsening symptoms, as discussed. Med/Other Pt SpecificInfo: Prescription(s) given Scripts Sulfamethoxazole-Trimethoprim (Bactrim DS) 800-160 Mg Tab 1 TAB PO BID for Infection, #20 TAB 0 Refills Prov: Gomez Inman MD 12/11/16 Disposition: 01 DISCHARGE HOME Condition: Stable Michelle Moise Dec 11, 2016 15:26
== END 2016-12-11 16:07 | disposition home or self-care (01) ==
LOC: PHEFT 13:50
DX: L02.212 Cutaneous abscess of back [any part, except buttock and flank] (principal)
CPT/HCPCS: 10060; 96372

== ENCOUNTER 2017-01-06 16:50 | Emergency (ER) | payer OTHER ==
[~2017-01-06] VITALS: Ht 180.3 cm; Wt 70.0 kg
[~2017-01-06 16:50] MED LIST changes: +BACT800T5 PO; -NAPR500T PO; -PSYCH MED; +ZOLO50TA PO
[2017-01-06 16:57] VITALS: BP 100/60; PULSE 89; RESP 20; TEMP 98.4; O2SAT 97
[2017-01-06] MEDS ORDERED: ZYPR15TA PO (17:05)
--- NOTE | 2017-01-06 18:22 | PD ---
HPI Chief Complaint: Suicide Ideation/Attempt Time Seen by Provider: 17:02 Travel History International Travel<30 days: No Contact w/Intl Traveler<30days: No Traveled to known affect area: No History of Present Illness HPI 61 year old male with history of schizophrenia, depression, anxiety, chronic pain here under [place] for suicidal ideation. Patient reports he was recently taken off of his Seroquel and placed on Zyprexa he then began to have frequent auditory hallucinations telling him to harm himself. He reports feeling sad, depressed and having thoughts of suicide. He will not elaborate on a specific plan. He denies any medical complaint. He is followed by Dr. Ontiveros at [facility]. He denies recent alcohol use. Reports using morphine last night. PFSH Past Medical History Blood Disorders: Yes (Hep C) Bipolar Disorder: Yes Anxiety: Yes Depression: Yes Heart Rhythm Problems: No Cancer: No Cardiovascular Problems: Yes High Cholesterol: No Chest Pain: Yes Congestive Heart Failure: No Cirrhosis: No Cerebrovascular Accident: No Diabetes: No Diminished Hearing: No Endocrine: No Gastrointestinal Disorders: Yes (BLEEDING ULCERS) Genitourinary: No Hepatitis: Yes (Hep C) Hiatal Hernia: Yes (REPAIRED A CHILD) Musculoskeletal: Yes (CHRONIC LOW BACK) Neurologic: Yes Psychiatric: Yes Reproductive: No Respiratory: No Immunizations Current: No Myocardial Infarction: No Schizophrenia: Yes (SCHIZOAFFECTIVE) Seizures: Yes (R/T WITHDRAWAL) Thyroid Disease: No Ulcer: Yes Past Surgical History Abdominal Surgery: Yes (hernia repair) AICD: No Appendectomy: Yes Neurologic Surgery: No Other Surgery: Yes (2 cysts removed from neck) Social History Alcohol Use: No Tobacco Use: Yes (1 ppd) Substance Use: Yes (MORPHINE, NOT OFTEN, DILAUDID AND COCAINE) Allergies-Medications (Allergen,Severity, Reaction): Coded Allergies: aspirin (Unverified Allergy, Severe, BLEEDING ULCERS, 12/11/16) clonazepam (Unverified Allergy, Severe, Hallucinations, 12/11/16) iodine (Unverified Allergy, Severe, Rash, 12/11/16) SKIN SLOUGHS OFF PER PT " GETS EATEN TO THE BONE" paroxetine (Unverified Allergy, Severe, Rash, 12/11/16) potassium iodide (Unverified Allergy, Severe, Rash, 12/11/16) SKIN SLOUGHS OFF PER PT " GETS EATEN TO THE BONE" povidone-iodine (Unverified Allergy, Severe, Rash, 12/11/16) SKIN SLOUGHS OFF PER PT " GETS EATEN TO THE BONE" sodium iodide (Unverified Allergy, Severe, Rash, 12/11/16) SKIN SLOUGHS OFF PER PT " GETS EATEN TO THE BONE" sodium iodide (Unverified Allergy, Severe, Rash, 12/11/16) SKIN SLOUGHS OFF PER PT " GETS EATEN TO THE BONE" ziprasidone (Unverified Allergy, Severe, TONGUE SWELLING, 12/11/16) Reported Meds & Prescriptions Reported Meds & Active Scripts Active Reported Zyprexa (Olanzapine) 15 Mg Tab 15 Mg PO HS Zoloft (Sertraline HCl) 50 Mg Tab 50 Mg PO DAILY Review of Systems Except as stated in HPI: all other systems reviewed are Neg Physical Exam Narrative GENERAL: Alert, nontoxic-appearing male resting comfortably on the stretcher. He is asleep but easily arousable. SKIN: Focused skin assessment warm/dry. HEAD: Atraumatic. Normocephalic. EYES: Pupils equal and round. No scleral icterus. No injection or drainage. ENT: No nasal bleeding or discharge. Mucous membranes pink and moist. NECK: Trachea midline. No JVD. CARDIOVASCULAR: Regular rate and rhythm. No murmur appreciated. RESPIRATORY: No accessory muscle use. Clear to auscultation. Breath sounds equal bilaterally. GASTROINTESTINAL: Abdomen soft, non-tender, nondistended. Hepatic and splenic margins not palpable. MUSCULOSKELETAL: No obvious deformities. No clubbing. No cyanosis. No edema. NEUROLOGICAL: Awake and alert. No obvious cranial nerve deficits. Motor grossly within normal limits. Normal speech. PSYCHIATRIC: Appropriate mood and affect; insight and judgment normal. Data Data Last Documented VS Vital Signs Date Time Temp Pulse Resp B/P (MAP) Pulse Ox O2 Delivery O2 Flow Rate FiO2 01/06/17 16:57 98.4 89 20 100/60 (73) 97 Orders Orders Complete Blood Count With Diff (01/06/17 17:11) Comprehensive Metabolic Panel (01/06/17 17:11) Psych Screen (01/06/17 17:11) Drug Screen, Random Urine (01/06/17 17:11) Alcohol (Ethanol) (01/06/17 17:11) Labs Laboratory Tests Test 01/06/17 17:50 White Blood Count 7.3 TH/MM3 Red Blood Count 3.61 MIL/MM3 Hemoglobin 11.6 GM/DL Hematocrit 33.9 % Mean Corpuscular Volume 93.8 FL Mean Corpuscular Hemoglobin 32.0 PG Mean Corpuscular Hemoglobin Concent 34.1 % Red Cell Distribution Width 14.5 % Platelet Count 148 TH/MM3 Mean Platelet Volume 10.6 FL Neutrophils (%) (Auto) 54.0 % Lymphocytes (%) (Auto) 31.6 % Monocytes (%) (Auto) 11.1 % Eosinophils (%) (Auto) 2.0 % Basophils (%) (Auto) 1.3 % Neutrophils # (Auto) 4.0 TH/MM3 Lymphocytes # (Auto) 2.3 TH/MM3 Monocytes # (Auto) 0.8 TH/MM3 Eosinophils # (Auto) 0.1 TH/MM3 Basophils # (Auto) 0.1 TH/MM3 CBC Comment DIFF FINAL Differential Comment Blood Urea Nitrogen 17 MG/DL Creatinine 0.78 MG/DL Random Glucose 85 MG/DL Total Protein 7.1 GM/DL Albumin 3.1 GM/DL Calcium Level 8.3 MG/DL Alkaline Phosphatase 83 U/L Aspartate Amino Transf (AST/SGOT) 113 U/L Alanine Aminotransferase (ALT/SGPT) 102 U/L Total Bilirubin 0.4 MG/DL Sodium Level 142 MEQ/L Potassium Level 3.5 MEQ/L Chloride Level 110 MEQ/L Carbon Dioxide Level 25.5 MEQ/L Anion Gap 7 MEQ/L Estimat Glomerular Filtration Rate 102 ML/MIN Ethyl Alcohol Level LESS THAN 3 MG/DL MDM Medical Decision Making Medical Screen Exam Complete: Yes Emergency Medical Condition: Yes Differential Diagnosis Auditory hallucinations, schizoaffective disorder, mood disorder, suicidal ideation, polysubstance abuse Narrative Course 61-year-old male here under [place] act for auditory hallucinations and suicidal ideation. His psychiatrist Dr. Ontiveros with [facility] act recently taken off Seroquel and placed him on Zyprexa which increased the frequency of his auditory hallucinations. He reports feeling depressed and suicidal although he doesn't have a specific plan. He has no medical complaints. Patient will be evaluated in the emergency department once medically cleared he will receive psychiatric evaluation. blood work reviewed no gross abnormalities AST/ALT noted to be mildly elevated this is likely due to chronic drug/alcohol abuse. Patient was advised to follow up with his PCP regarding these levels. Patient was monitored in the emergency department his vital signs up in stable. He is medically cleared for psychiatric evaluation. Diagnosis Primary Impression: Suicidal ideation Francia Petty Jan 06, 2017 18:22
[2017-01-06 18:26] LABS: BASOPHIL # 0.1 TH/MM3 (0-0.2); BASOPHIL % 1.3 % (0.0-2.0); EOSINOPHIL # 0.1 TH/MM3 (0-0.4); HEMATOCRIT 33.9 % (39.0-51.0); HEMO FLAGS DIFF FINAL; LYMPH % 31.6 % (9.0-44.0); LYMPHOCYTE # 2.3 TH/MM3 (1.0-4.8); MEAN CELL VOLUME 93.8 FL (80.0-100.0); MEAN CORPUSCULAR HGB CONC 34.1 % (32.0-36.0); MONO % 11.1 % (0.0-8.0); PLATELET COUNT 148 TH/MM3 (150-450); RED BLOOD COUNT 3.61 MIL/MM3 (4.50-5.90); RED CELL DISTRIBUTION WIDTH 14.5 % (11.6-17.2); WHITE BLOOD COUNT 7.3 TH/MM3 (4.0-11.0)
[2017-01-06 18:31] LABS: ANION GAP 7 MEQ/L (5-15); AST (GOT) 113 U/L (15-37); BICARBONATE 25.5 MEQ/L (21.0-32.0); BLOOD UREA NITROGEN 17 MG/DL (7-18); CHLORIDE 110 MEQ/L (98-107); GLOMERULAR FILTRATION RATE 102 ML/MIN (>89); POTASSIUM 3.5 MEQ/L (3.5-5.1); SODIUM (NA) 142 MEQ/L (136-145)
[2017-01-06 18:32] LABS: ALT (GPT) 102 U/L (12-78)
[2017-01-06 18:35] LABS: ALKALINE PHOSPHATASE 83 U/L (45-117); TOTAL BILIRUBIN ADULT 0.4 MG/DL (0.2-1.0)
[2017-01-06 18:46] LABS: ALCOHOL LESS THAN 3 MG/DL (0-5)
[2017-01-06 22:15] VITALS: BP 112/61; PULSE 76; RESP 18; O2SAT 96
[2017-01-07 06:22] VITALS: BP 122/66; PULSE 69; RESP 17; O2SAT 98
[2017-01-07 11:33] VITALS: BP 136/80; PULSE 80; RESP 18; O2SAT 95
[2017-01-07 18:46] VITALS: BP 162/89; PULSE 83; RESP 18; O2SAT 100
[2017-01-07 19:10] VITALS: BP 138/73; PULSE 73; RESP 17; O2SAT 99
[2017-01-07 22:00] VITALS: BP 151/84; PULSE 23; PULSE 73; RESP 18; O2SAT 98
[2017-01-08 02:11] VITALS: BP 146/81; PULSE 18; PULSE 71; RESP 18; O2SAT 98
[2017-01-08] MEDS ORDERED: SERO400T PO (18:25)
[2017-01-08] MEDS ORDERED: TYLE325T PO (22:11)
== END 2017-01-08 03:07 ==
LOC: NEPD 16:50 → NEPJ 01-08 03:07
DX: R45.851 Suicidal ideations (principal); R44.0 Auditory hallucinations; F20.9 Schizophrenia, unspecified; F41.9 Anxiety disorder, unspecified; F31.9 Bipolar disorder, unspecified; B19.20 Unspecified viral hepatitis C without hepatic coma; F17.200 Nicotine dependence, unspecified, uncomplicated; Z79.899 Other long term (current) drug therapy; Z88.6 Allergy status to analgesic agent
CPT/HCPCS: 80053; 80307; 85025; 99285

== ENCOUNTER 2017-01-08 18:08 | Emergency (ER) | payer SELFPAY ==
[~2017-01-08 18:08] MED LIST changes: -BACT800T5 PO; -SERO25TA PO; +ZYPR15TA PO
[2017-01-08 18:22] VITALS: BP 107/70; PULSE 76; RESP 20; TEMP 97.6; O2SAT 99
[2017-01-08] MEDS ORDERED: SERO400T PO (18:25)
--- NOTE | 2017-01-08 20:09 | PD ---
HPI Chief Complaint: Abdominal Pain Time Seen by Provider: 19:52 Travel History International Travel<30 days: No Contact w/Intl Traveler<30days: No Traveled to known affect area: No History of Present Illness HPI 61yo M with PMH of hep C, IVDA, schizophrenia, chronic pain presents to the ED with c/o abdominal pain for weeks, likely 2-3 weeks. Pain is sharp, periumbilical and intermittent. Nonradiating. No exacerbation or alleviating factors. Pt has not taken anything for pain. Also had NBNB vomiting today. + Nonbloody diarrhea for 3 days. +Cloudy urine. Denies any fever, chest pain, sob, testicular pain, penile rash or discharge, focal weakness or numbness. PSH include hernia repair. PFSH Past Medical History Blood Disorders: Yes (Hep C) Bipolar Disorder: Yes Anxiety: Yes Depression: Yes Heart Rhythm Problems: No Cancer: No Cardiovascular Problems: Yes High Cholesterol: No Chest Pain: Yes Congestive Heart Failure: No Cirrhosis: No Cerebrovascular Accident: No Diabetes: No Diminished Hearing: No Endocrine: No Gastrointestinal Disorders: Yes (BLEEDING ULCERS) Genitourinary: No Hepatitis: Yes (Hep C) Hiatal Hernia: Yes (REPAIRED A CHILD) Musculoskeletal: Yes (CHRONIC LOW BACK) Neurologic: Yes Psychiatric: Yes Reproductive: No Respiratory: No Immunizations Current: No Myocardial Infarction: No Schizophrenia: Yes (SCHIZOAFFECTIVE) Seizures: Yes (R/T WITHDRAWAL) Thyroid Disease: No Ulcer: Yes Past Surgical History Abdominal Surgery: Yes (hernia repair) AICD: No Appendectomy: Yes Neurologic Surgery: No Other Surgery: Yes (2 cysts removed from neck) Social History Alcohol Use: No Tobacco Use: Yes (1 ppd) Substance Use: Yes (MORPHINE, DILAUDID AND HEROIN) Allergies-Medications (Allergen,Severity, Reaction): Coded Allergies: aspirin (Unverified Allergy, Severe, BLEEDING ULCERS, 01/08/17) clonazepam (Unverified Allergy, Severe, Hallucinations, 01/08/17) iodine (Unverified Allergy, Severe, Rash, 01/08/17) SKIN SLOUGHS OFF PER PT " GETS EATEN TO THE BONE" paroxetine (Unverified Allergy, Severe, Rash, 01/08/17) potassium iodide (Unverified Allergy, Severe, Rash, 01/08/17) SKIN SLOUGHS OFF PER PT " GETS EATEN TO THE BONE" povidone-iodine (Unverified Allergy, Severe, Rash, 01/08/17) SKIN SLOUGHS OFF PER PT " GETS EATEN TO THE BONE" sodium iodide (Unverified Allergy, Severe, Rash, 01/08/17) SKIN SLOUGHS OFF PER PT " GETS EATEN TO THE BONE" sodium iodide (Unverified Allergy, Severe, Rash, 01/08/17) SKIN SLOUGHS OFF PER PT " GETS EATEN TO THE BONE" ziprasidone (Unverified Allergy, Severe, TONGUE SWELLING, 01/08/17) Reported Meds & Prescriptions Reported Meds & Active Scripts Active Tylenol (Acetaminophen) 325 Mg Tab 650 Mg PO Q6H PRN Reported Seroquel (Quetiapine Fumarate) 400 Mg Tab 800 Mg PO DAILY Zoloft (Sertraline HCl) 50 Mg Tab 50 Mg PO DAILY Review of Systems Except as stated in HPI: all other systems reviewed are Neg Physical Exam Narrative GENERAL: 61yo M in mild distress. SKIN: Focused skin assessment warm/dry. HEAD: Atraumatic. Normocephalic. EYES: Pupils equal and round. No scleral icterus. No injection or drainage. CARDIOVASCULAR: Regular rate and rhythm. No murmur appreciated. RESPIRATORY: No accessory muscle use. Clear to auscultation. Breath sounds equal bilaterally. GASTROINTESTINAL: Abdomen soft, mild periumbilical ttp. No rebound tenderness or guarding. MUSCULOSKELETAL: +Track tameka on right arm. No signs of infection. Distal pulses intact. No obvious deformities. No clubbing. No cyanosis. No edema. NEUROLOGICAL: Awake and alert. No obvious cranial nerve deficits. Motor grossly within normal limits. Normal speech. PSYCHIATRIC: Appropriate mood and affect; insight and judgment normal. Data Data Last Documented VS Vital Signs Date Time Temp Pulse Resp B/P (MAP) Pulse Ox O2 Delivery O2 Flow Rate FiO2 01/08/17 20:56 63 16 100/69 (79) 99 Room Air 01/08/17 18:22 97.6 Orders Orders Complete Blood Count With Diff (01/08/17 20:04) Comprehensive Metabolic Panel (01/08/17 20:04) Lipase (01/08/17 20:04) Urinalysis - C+S If Indicated (01/08/17 20:04) Iv Access Insert/Monitor (01/08/17 20:04) Ecg Monitoring (01/08/17 20:04) Oximetry (01/08/17 20:04) Sodium Chloride 0.9% Flush (Ns Flush) (01/08/17 20:15) Ondansetron Inj (Zofran Inj) (01/08/17 20:15) Sodium Chlor 0.9% 1000 Ml Inj (Ns 1000 M (01/08/17 20:15) Ketorolac Inj (Toradol Inj) (01/08/17 20:15) Ct Abd/Pel W/O Iv Contrast (01/08/17 ) Ed Discharge Order (01/08/17 22:27) Labs Laboratory Tests Test 01/08/17 20:10 White Blood Count 9.4 TH/MM3 Red Blood Count 4.36 MIL/MM3 Hemoglobin 13.1 GM/DL Hematocrit 40.4 % Mean Corpuscular Volume 92.5 FL Mean Corpuscular Hemoglobin 30.0 PG Mean Corpuscular Hemoglobin Concent 32.5 % Red Cell Distribution Width 14.2 % Platelet Count 192 TH/MM3 Mean Platelet Volume 9.9 FL Neutrophils (%) (Auto) 71.1 % Lymphocytes (%) (Auto) 20.0 % Monocytes (%) (Auto) 6.3 % Eosinophils (%) (Auto) 1.3 % Basophils (%) (Auto) 1.3 % Neutrophils # (Auto) 6.8 TH/MM3 Lymphocytes # (Auto) 1.9 TH/MM3 Monocytes # (Auto) 0.6 TH/MM3 Eosinophils # (Auto) 0.1 TH/MM3 Basophils # (Auto) 0.1 TH/MM3 CBC Comment DIFF FINAL Differential Comment Urine Color YELLOW Urine Turbidity CLOUDY Urine pH 7.0 Urine Specific [place] 1.030 Urine Protein NEG mg/dL Urine Glucose (UA) NEG mg/dL Urine Ketones NEG mg/dL Urine Occult Blood NEG Urine Nitrite NEG Urine Bilirubin NEG Urine Leukocyte Esterase NEG Urine Squamous Epithelial Cells 0-5 /hpf Urine Amorphous Sediment LARGE Blood Urea Nitrogen 12 MG/DL Creatinine 0.76 MG/DL Random Glucose 99 MG/DL Total Protein 7.8 GM/DL Albumin 3.2 GM/DL Calcium Level 8.7 MG/DL Alkaline Phosphatase 88 U/L Aspartate Amino Transf (AST/SGOT) 88 U/L Alanine Aminotransferase (ALT/SGPT) 102 U/L Total Bilirubin 0.5 MG/DL Sodium Level 138 MEQ/L Potassium Level 3.9 MEQ/L Chloride Level 106 MEQ/L Carbon Dioxide Level 26.0 MEQ/L Anion Gap 6 MEQ/L Estimat Glomerular Filtration Rate 105 ML/MIN Lipase 155 U/L [facility] Medical Decision Making Medical Screen Exam Complete: Yes Emergency Medical Condition: Yes Differential Diagnosis Gastroenteritis vs. colitis vs. UTI Narrative Course 61yo M who is well appearing here with c/o periumbilical pain for weeks. Labs reviewed, no leukocytosis. CMP showed elevated AST/ALT but improved from 2 days ago when he was here as a [place] for suicidal ideations. Pt has hep C and chronic IV drug abuser. Lipase normal. UA negative. Pt given toradol for pain. CT a/p showed no acute findings. Pt reevaluated at bedside and feels better. Abdomen is soft, NT/ND. Pt also denies any suicidal or homicidal ideations. Return precautions given. Diagnosis Primary Impression: Abdominal pain Qualified Codes: R10.33 - Periumbilical pain Patient Instructions: General Instructions Departure Forms: Tests/Procedures Additional Instructions: Please follow up with your primary care physician in 3-7 days. Return to the ED if symptoms worsen. Med/Other Pt SpecificInfo: Prescription(s) given Scripts Acetaminophen (Tylenol) 325 Mg Tab 650 MG PO Q6H Y for PAIN SCALE 1 TO 4, #20 TAB 0 Refills Prov: Lisbeth Locke 01/08/17 Disposition: 01 DISCHARGE HOME Condition: Stable LockeLisbeth linda Jan 08, 2017 20:09
[2017-01-08] MEDS ORDERED: SODIUM CHLOR 0.9% 1000 ML INJ 1,000 ML IV ONE (20:15)
[2017-01-08] MEDS ORDERED: ONDANSETRON HCL 4 MG/2 ML VIAL IV PUSH ONE (20:15)
[2017-01-08] MEDS ORDERED: KETOROLAC TROMETHAMINE 30 MG/ML (IVP) VIAL IV PUSH ONE (20:15)
[2017-01-08] MEDS ORDERED: SODIUM CHLORIDE 0.9% FLUSH 10 ML FLUSH IV FLUSH PRN (20:15)
[2017-01-08 20:22] LABS: BILIRUBIN, URINE NEG (NEG); BLOOD, URINE NEG (NEG); GLUCOSE,URINE NEG (NEG); KETONE, URINE NEG (NEG); NITRITE,URINE NEG (NEG); URINE LEUKOCYTE ESTERASE NEG (NEG)
[2017-01-08 20:25] LABS: AUTOMATED NEUTROPHIL # 6.8 TH/MM3 (1.8-7.7); BASOPHIL # 0.1 TH/MM3 (0-0.2); BASOPHIL % 1.3 % (0.0-2.0); EOSINOPHIL # 0.1 TH/MM3 (0-0.4); EOSINOPHIL % 1.3 % (0.0-4.0); HEMATOCRIT 40.4 % (39.0-51.0); HEMOGLOBIN 13.1 GM/DL (13.0-17.0); LYMPHOCYTE # 1.9 TH/MM3 (1.0-4.8); MEAN CELL VOLUME 92.5 FL (80.0-100.0); MEAN CORPUSCULAR HGB CONC 32.5 % (32.0-36.0); MEAN PLATELET VOLUME 9.9 FL (7.0-11.0); MONO % 6.3 % (0.0-8.0); MONOCYTE # 0.6 TH/MM3 (0-0.9); NEUT % 71.1 % (16.0-70.0); PLATELET COUNT 192 TH/MM3 (150-450); RED BLOOD COUNT 4.36 MIL/MM3 (4.50-5.90); RED CELL DISTRIBUTION WIDTH 14.2 % (11.6-17.2); WHITE BLOOD COUNT 9.4 TH/MM3 (4.0-11.0)
[2017-01-08 20:27] LABS: URINE COLOR YELLOW (YELLW/STRAW)
[2017-01-08 20:28] LABS: AMORPHOUS SEDIMENT, URINE LARGE; CHLORIDE 106 MEQ/L (98-107); SODIUM (NA) 138 MEQ/L (136-145); SQUAMOUS EPITHELIAL CELL URINE 0-5 /hpf (0-5)
[2017-01-08 20:32] LABS: ALBUMIN 3.2 GM/DL (3.4-5.0); CALCIUM 8.7 MG/DL (8.5-10.1); LIPASE 155 U/L (73-393)
[2017-01-08 20:33] LABS: BLOOD UREA NITROGEN 12 MG/DL (7-18); GLUCOSE,RANDOM 99 MG/DL (74-106)
[2017-01-08 20:35] LABS: ALT (GPT) 102 U/L (12-78); AST (GOT) 88 U/L (15-37); CREATININE 0.76 MG/DL (0.60-1.30); GLOMERULAR FILTRATION RATE 105 ML/MIN (>89)
[2017-01-08 20:37] LABS: TOTAL BILIRUBIN ADULT 0.5 MG/DL (0.2-1.0); TOTAL PROTEIN 7.8 GM/DL (6.4-8.2)
[2017-01-08 20:38] LABS: ALKALINE PHOSPHATASE 88 U/L (45-117)
[2017-01-08 20:56] VITALS: BP 100/69; PULSE 63; RESP 16; O2SAT 99
[2017-01-08] MEDS ORDERED: TYLE325T PO (22:11)
--- NOTE | 2017-01-08 22:19 | RADRPT ---
EXAM DATE/TIME: 01/08/2017 20:40 [facility] COMPARISON: No previous studies available for comparison. INDICATIONS : Umbilical abdomen pain for two weeks. ORAL CONTRAST: No oral contrast ingested. RADIATION DOSE: 9.12 CTDIvol (mGy) MEDICAL HISTORY : Hepatitis C. SURGICAL HISTORY : Appendectomy. hiatal hernia repair ENCOUNTER: Initial ACUITY: 2 weeks PAIN SCALE: 6/10 LOCATION: umbilical abdomen TECHNIQUE: Volumetric scanning of the abdomen and pelvis was performed. Using automated exposure control and ad justment of the mA and/or kV according to patient size, radiation dose was kept as low as reasonably achievable to obtain optimal diagnostic quality images. DICOM format image data is available electro nically for review and comparison. FINDINGS: LOWER LUNGS: The visualized lower lungs are clear. LIVER: Homogeneous density without lesion. There is no dilation of the biliary tree. No calcified gallston es. SPLEEN: Normal size without lesion. PANCREAS: Within normal limits. KIDNEYS: Normal in size and shape. There is no mass, stone, or hydronephrosis. ADRENAL GLANDS: Within normal limits. VASCULAR: There is no aortic aneurysm. BOWEL/MESENTERY: Small hiatal hernia. No abnormally dilated bowel. No focal wall thickening or inflammatory changes. T he appendix is seen and appears normal ABDOMINAL WALL: Within normal limits. RETROPERITONEUM: There is no lymphadenopathy. BLADDER: No wall thickening or mass. REPRODUCTIVE: Within normal limits. INGUINAL: There is no lymphadenopathy or hernia. MUSCULOSKELETAL: Within normal limits for patient age. CONCLUSION: No acute noncontrast CT findings in the abdomen or pelvis. Julio Lopez MD on January 08, 2017 at 22:15 Board Certified Radiologist. This report was verified electronically.
[2017-01-08 23:07] VITALS: BP 112/77
== END 2017-01-08 23:07 | disposition home or self-care (01) ==
LOC: PHED 18:08
DX: R10.33 Periumbilical pain (principal); B19.20 Unspecified viral hepatitis C without hepatic coma; F25.0 Schizoaffective disorder, bipolar type; F17.200 Nicotine dependence, unspecified, uncomplicated
CPT/HCPCS: 74176; 80053; 81001; 83690; 85025; 96361; 96374; 96375; 99285; J1885; J2405; J7030

== ENCOUNTER 2017-03-21 11:54 | Emergency (ER) | payer SELFPAY ==
[~2017-03-21 11:54] MED LIST changes: +SERO400T PO; +TYLE325T PO; -ZYPR15TA PO
[2017-03-21 11:55] VITALS: BP 135/83; PULSE 89; RESP 14; TEMP 97.8; O2SAT 99
--- NOTE | 2017-03-21 12:51 | PD ---
HPI Chief Complaint: Skin Problem Time Seen by Provider: 12:47 Travel History International Travel<30 days: No Contact w/Intl Traveler<30days: No Traveled to known affect area: No History of Present Illness HPI 61-year-old male presents to the emergency Department with complaint of a spider bite to the crack of his buttocks 4 days. Says it started draining yesterday. Denies fever, vomiting. Denies history of abscesses to this area or abscesses. Up-to-date on tetanus vaccination. Has not taken any medication or tried any treatments to alleviate symptoms. Rates pain 8/10. Describes it as a throbbing sensation. Aggravated with sitting and palpating the area. Decreased pain while laying on his side. History of hepatitis C. Multiple allergies listed on the chart. Denies other significant past medical history. No primary care provider. Has no other medical complaints. No other modifying factors or associated signs and symptoms. PFSH Past Medical History Blood Disorders: Yes (Hep C) Bipolar Disorder: Yes Anxiety: Yes Depression: Yes Heart Rhythm Problems: No Cancer: No Cardiovascular Problems: Yes High Cholesterol: No Chest Pain: Yes Congestive Heart Failure: No Cirrhosis: No Cerebrovascular Accident: No Diabetes: No Diminished Hearing: No Endocrine: No Gastrointestinal Disorders: Yes (BLEEDING ULCERS) Genitourinary: No Hepatitis: Yes (Hep C) Hiatal Hernia: Yes (REPAIRED A CHILD) Musculoskeletal: Yes (CHRONIC LOW BACK) Neurologic: Yes Psychiatric: Yes Reproductive: No Respiratory: No Immunizations Current: No Myocardial Infarction: No Radiation Therapy: No Renal Failure: No Schizophrenia: Yes (SCHIZOAFFECTIVE) Seizures: Yes (R/T WITHDRAWAL) Thyroid Disease: No Ulcer: Yes Tetanus Vaccination: > 5 Years Past Surgical History Abdominal Surgery: Yes (hernia repair) AICD: No Appendectomy: Yes Arteriovenous Shunt: No Gynecologic Surgery: No Neurologic Surgery: No Other Surgery: Yes (2 cysts removed from neck) Social History Alcohol Use: No Tobacco Use: Yes (1 ppd) Substance Use: Yes (MORPHINE, DILAUDID AND HEROIN) Allergies-Medications (Allergen,Severity, Reaction): Coded Allergies: aspirin (Unverified Allergy, Severe, BLEEDING ULCERS, 03/21/17) clonazepam (Unverified Allergy, Severe, Hallucinations, 03/21/17) iodine (Unverified Allergy, Severe, Rash, 03/21/17) SKIN SLOUGHS OFF PER PT " GETS EATEN TO THE BONE" paroxetine (Unverified Allergy, Severe, Rash, 03/21/17) potassium iodide (Unverified Allergy, Severe, Rash, 03/21/17) SKIN SLOUGHS OFF PER PT " GETS EATEN TO THE BONE" povidone-iodine (Unverified Allergy, Severe, Rash, 03/21/17) SKIN SLOUGHS OFF PER PT " GETS EATEN TO THE BONE" sodium iodide (Unverified Allergy, Severe, Rash, 03/21/17) SKIN SLOUGHS OFF PER PT " GETS EATEN TO THE BONE" sodium iodide (Unverified Allergy, Severe, Rash, 03/21/17) SKIN SLOUGHS OFF PER PT " GETS EATEN TO THE BONE" ziprasidone (Unverified Allergy, Severe, TONGUE SWELLING, 03/21/17) Reported Meds & Prescriptions Reported Meds & Active Scripts Active Bactrim DS (Sulfamethoxazole-Trimethoprim) 800-160 Mg Tab 1 Tab PO BID 10 Days Reported Seroquel (Quetiapine Fumarate) 400 Mg Tab 800 Mg PO DAILY Zoloft (Sertraline HCl) 50 Mg Tab 50 Mg PO DAILY Review of Systems Except as stated in HPI: all other systems reviewed are Neg Physical Exam Narrative GENERAL: Well-nourished, well-developed male patient, in no acute distress; afebrile, nontoxic-appearing; disheveled SKIN: There is an indurated area to the coccygeal area which measures about 2.5 cm in diameter. It is nonfluctuant and there is minimal amount of foul-smelling purulent drainage drainage. There is a zone of inflammation around it but no lymphangitis. HEAD: Atraumatic. Normocephalic. EYES: Pupils equal and round. No scleral icterus. No injection or drainage. ENT: Mucosa pink and moist. Airway patent. NECK: Trachea midline. CARDIOVASCULAR: Regular rate. RESPIRATORY: No accessory muscle use. GASTROINTESTINAL: Flat. MUSCULOSKELETAL: No obvious deformities. No clubbing. No cyanosis. No edema. NEUROLOGICAL: Awake and alert. Oriented 3. No obvious cranial nerve deficits. Motor grossly within normal limits. Normal speech. PSYCHIATRIC: Appropriate mood and affect; insight and judgment normal. Data Data Last Documented VS Vital Signs Date Time Temp Pulse Resp B/P (MAP) Pulse Ox O2 Delivery O2 Flow Rate FiO2 03/21/17 11:55 97.8 89 14 135/83 (100) 99 Orders Orders Ketorolac Inj (Toradol Inj) (03/21/17 13:00) Ed Discharge Order (03/21/17 12:53) Wound Culture And Gram Stain (03/21/17 12:53) MDM Medical Decision Making Medical Screen Exam Complete: Yes Emergency Medical Condition: Yes Medical Record Reviewed: Yes Differential Diagnosis Pilonidal abscess, abscess of buttock, folliculitis Narrative Course 61-year-old male physical exam consistent with pilonidal abscess. The abscess is nonfluctuant and has been draining since yesterday. There is minimal amount of foul-smelling purulent drainage noted. Wound culture pending. Ibuprofen ordered. Ibuprofen and Bactrim prescribed for home. Instructed patient to follow up with primary care provider. Patient verbalizes understanding and agreement with treatment plan. Patient is medically cleared and stable for discharge. Discussed reasons to return to the emergency department. Patient agrees with treatment plan. The patients vital signs are stable and the patient is stable for outpatient follow-up and treatment. Patient discharged home, stable and in no acute distress. Diagnosis Primary Impression: Pilonidal abscess Referrals: [facility] Primary Care Physician Patient Instructions: General Instructions, Pilonidal Cyst (ED) Additional Instructions: Complete full course of antibiotics; Bactrim is free at [employer] Warm compresses to the affected area Keep area clean and dry Tylenol as directed and as needed for pain and inflammation Follow-up with primary care provider Return to emergency department immediately with worsening of symptoms Med/Other Pt SpecificInfo: Prescription(s) given Scripts Sulfamethoxazole-Trimethoprim (Bactrim DS) 800-160 Mg Tab 1 TAB PO BID for Infection for 10 Days, #20 TAB 0 Refills Prov: Orly Darnell 03/21/17 Disposition: 01 DISCHARGE HOME Condition: Stable Orly Darnell Mar 21, 2017 12:51
[2017-03-21] MEDS ORDERED: BACT800T5 PO (12:59)
[2017-03-21] MEDS ORDERED: KETOROLAC TROMETHAMINE 60 MG/2 ML (IM) VIAL IM ONE (13:00)
== END 2017-03-21 13:36 | disposition home or self-care (01) ==
LOC: NEPD 11:54
DX: L05.01 Pilonidal cyst with abscess (principal); A49.02 Methicillin resistant Staphylococcus aureus infection, unspecified site; F31.9 Bipolar disorder, unspecified; F41.9 Anxiety disorder, unspecified; F20.9 Schizophrenia, unspecified; R56.9 Unspecified convulsions; F17.200 Nicotine dependence, unspecified, uncomplicated; Z86.19 Personal history of other infectious and parasitic diseases; Z79.899 Other long term (current) drug therapy
CPT/HCPCS: 86403; 87070; 87186; 96372; 99284; J1885

== ENCOUNTER 2017-04-24 09:49 | Emergency (ER) | payer SELFPAY ==
[~2017-04-24 09:49] MED LIST changes: +BACT800T5 PO; -TYLE325T PO
[2017-04-24 09:50] VITALS: BP 118/74; PULSE 83; RESP 16; TEMP 98.2; O2SAT 99
[2017-04-24] MEDS ORDERED: CEPH-460 PO (10:19)
[2017-04-24] MEDS ORDERED: BACT800T5 PO (10:19)
--- NOTE | 2017-04-24 10:24 | PD ---
HPI Chief Complaint: Skin Problem Time Seen by Provider: 10:14 Travel History International Travel<30 days: No Contact w/Intl Traveler<30days: No Traveled to known affect area: No History of Present Illness HPI 61-year-old male with history of IV heroin abuse presents for evaluation of several skin lesions on his arms. Symptoms started a few weeks ago. The lesions are localized to the areas where he has been injecting heroin. He reports mild intermittent pain to the side of the lesions which is worse with palpation. He denies any fevers, chills, myalgias. He denies any chest pain, shortness of breath. He has no other complaints at this time. PFSH Past Medical History Blood Disorders: Yes (Hep C) Bipolar Disorder: Yes Anxiety: Yes Depression: Yes Heart Rhythm Problems: No Cancer: No Cardiovascular Problems: Yes High Cholesterol: No Chest Pain: Yes Congestive Heart Failure: No Cirrhosis: No Cerebrovascular Accident: No Diabetes: No Diminished Hearing: No Endocrine: No Gastrointestinal Disorders: Yes (BLEEDING ULCERS) Genitourinary: No Hepatitis: Yes (Hep C) Hiatal Hernia: Yes (REPAIRED A CHILD) Musculoskeletal: Yes (CHRONIC LOW BACK) Neurologic: Yes Psychiatric: Yes Reproductive: No Respiratory: No Immunizations Current: No Myocardial Infarction: No Radiation Therapy: No Renal Failure: No Schizophrenia: Yes (SCHIZOAFFECTIVE) Seizures: Yes (R/T WITHDRAWAL) Thyroid Disease: No Ulcer: Yes Past Surgical History Abdominal Surgery: Yes (hernia repair) AICD: No Appendectomy: Yes Arteriovenous Shunt: No Gynecologic Surgery: No Neurologic Surgery: No Other Surgery: Yes (2 cysts removed from neck) Social History Alcohol Use: No Tobacco Use: Yes (1 ppd) Substance Use: Yes (MORPHINE, DILAUDID AND HEROIN) Allergies-Medications (Allergen,Severity, Reaction): Coded Allergies: aspirin (Unverified Allergy, Severe, BLEEDING ULCERS, 03/21/17) clonazepam (Unverified Allergy, Severe, Hallucinations, 03/21/17) iodine (Unverified Allergy, Severe, Rash, 03/21/17) SKIN SLOUGHS OFF PER PT " GETS EATEN TO THE BONE" paroxetine (Unverified Allergy, Severe, Rash, 03/21/17) potassium iodide (Unverified Allergy, Severe, Rash, 03/21/17) SKIN SLOUGHS OFF PER PT " GETS EATEN TO THE BONE" povidone-iodine (Unverified Allergy, Severe, Rash, 03/21/17) SKIN SLOUGHS OFF PER PT " GETS EATEN TO THE BONE" sodium iodide (Unverified Allergy, Severe, Rash, 03/21/17) SKIN SLOUGHS OFF PER PT " GETS EATEN TO THE BONE" sodium iodide (Unverified Allergy, Severe, Rash, 03/21/17) SKIN SLOUGHS OFF PER PT " GETS EATEN TO THE BONE" ziprasidone (Unverified Allergy, Severe, TONGUE SWELLING, 03/21/17) Reported Meds & Prescriptions Reported Meds & Active Scripts Active Keflex (Cephalexin) 500 Mg Cap 500 Mg PO Q8H Bactrim DS (Sulfamethoxazole-Trimethoprim) 800-160 Mg Tab 1 Tab PO BID Bactrim DS (Sulfamethoxazole-Trimethoprim) 800-160 Mg Tab 1 Tab PO BID 10 Days Reported Seroquel (Quetiapine Fumarate) 400 Mg Tab 800 Mg PO DAILY Zoloft (Sertraline HCl) 50 Mg Tab 50 Mg PO DAILY Review of Systems Except as stated in HPI: all other systems reviewed are Neg Physical Exam Narrative GENERAL: Disheveled male in no acute distress. Afebrile, not tachycardic SKIN: Warm and dry. The patient has several areas of circular erythema and excoriation on both arms. Tract carreno are notable in both arms. No areas of fluctuance. No drainage. HEAD: Atraumatic. Normocephalic. EYES: Pupils equal and round. No scleral icterus. No injection or drainage. ENT: No nasal bleeding or discharge. Mucous membranes pink and moist. NECK: Trachea midline. No JVD. CARDIOVASCULAR: Regular rate and rhythm. No murmur appreciated. RESPIRATORY: No accessory muscle use. Clear to auscultation. Breath sounds equal bilaterally. MUSCULOSKELETAL: Skin as noted above with no joint effusions, no range of motion limitations. NEUROLOGICAL: Awake and alert. No obvious cranial nerve deficits. Motor grossly within normal limits. Normal speech. Data Data Last Documented VS Vital Signs Date Time Temp Pulse Resp B/P (MAP) Pulse Ox O2 Delivery O2 Flow Rate FiO2 04/24/17 09:50 98.2 83 16 118/74 (89) 99 MDM Medical Decision Making Medical Screen Exam Complete: Yes Emergency Medical Condition: Yes Medical Record Reviewed: Yes Differential Diagnosis Cellulitis, abscess, erysipelas, lymphangitis Narrative Course The patient has several circular areas of erythema and excoriation of both arms secondary to IV drug abuse consistent with cellulitis. There are no drainable abscesses. He does not appear septic. He is afebrile, not tachycardic. He'll be started on Bactrim and Keflex. I did recommend that he follow up with [facility] for detoxification and discuss signs and symptoms don't warrant returning to the emergency room. Diagnosis Primary Impression: IV drug abuse Additional Impression: Cellulitis Referrals: [facility] Additional Instructions: Medication as prescribed. Warm compresses to the affected area several times a day 15 minutes at a time. Return for any acutely new or worsening symptoms such as increasing redness and swelling, fevers. Med/Other Pt SpecificInfo: Prescription(s) given Scripts Cephalexin (Keflex) 500 Mg Cap 500 MG PO Q8H for Infection, #30 CAP 0 Refills Prov: Amanda Arroyo MD 04/24/17 Sulfamethoxazole-Trimethoprim (Bactrim DS) 800-160 Mg Tab 1 TAB PO BID for Infection, #20 TAB 0 Refills Prov: Amanda Arroyo MD 04/24/17 Disposition: 01 DISCHARGE HOME Condition: Stable Dago Rodriguez Apr 24, 2017 10:24
[2017-04-24 10:55] VITALS: BP 116/70
== END 2017-04-24 11:00 | disposition home or self-care (01) ==
LOC: NEPD 09:49
DX: L03.114 Cellulitis of left upper limb (principal); L03.113 Cellulitis of right upper limb; F19.10 Other psychoactive substance abuse, uncomplicated; F31.9 Bipolar disorder, unspecified; F41.9 Anxiety disorder, unspecified; F25.9 Schizoaffective disorder, unspecified; R56.9 Unspecified convulsions; F17.200 Nicotine dependence, unspecified, uncomplicated; Z86.19 Personal history of other infectious and parasitic diseases
CPT/HCPCS: 99283

== ENCOUNTER 2017-05-28 13:34 | Emergency (ER) | payer SELFPAY ==
[~2017-05-28] VITALS: Ht 180.3 cm; Wt 64.0 kg
[~2017-05-28 13:34] MED LIST changes: +CEPH-460 PO
[2017-05-28 13:49] VITALS: BP 110/64; PULSE 110; RESP 16; TEMP 97.9; O2SAT 96
--- NOTE | 2017-05-28 15:40 | PD ---
HPI Chief Complaint: Abdominal Pain Time Seen by Provider: 15:06 Travel History International Travel<30 days: No Contact w/Intl Traveler<30days: No Traveled to known affect area: No History of Present Illness HPI 61-year-old male complains of low abdominal pain and rectal bleeding. Patient states that symptoms started 2 days ago. Patient states the pain and cramping pain localized to lower abdomen. Patient denies any pain radiation. Patient denies any fever chills. Patient denies any nausea vomiting diarrhea. Patient noticed some blood per rectum for the past 2 days. PFSH Past Medical History Asthma: No Autoimmune Disease: No Blood Disorders: Yes (Hep C) Bipolar Disorder: Yes Anxiety: Yes Depression: Yes Heart Rhythm Problems: No Cancer: No Cardiac Catheterization: No Cardiovascular Problems: Yes High Cholesterol: No Chemotherapy: No Chest Pain: Yes Congestive Heart Failure: No Cirrhosis: No Cerebrovascular Accident: No Diabetes: No Diminished Hearing: No Endocrine: No Gastrointestinal Disorders: Yes (BLEEDING ULCERS) GERD: No Glaucoma: No Genitourinary: No Headaches: No Hepatitis: Yes (Hep C) Hiatal Hernia: Yes (REPAIRED A CHILD) Hypertension: No Immune Disorder: No Implanted Vascular Access Dvce: No Kidney Stones: No Musculoskeletal: Yes (CHRONIC LOW BACK) Neurologic: Yes Psychiatric: Yes Reproductive: No Respiratory: No Immunizations Current: No Migraines: No Myocardial Infarction: No Radiation Therapy: No Renal Failure: No Schizophrenia: Yes (SCHIZOAFFECTIVE) Seizures: Yes (R/T WITHDRAWAL) Sickle Cell Disease: No Sleep Apnea: No Thyroid Disease: No Ulcer: Yes Tetanus Vaccination: > 5 Years Past Surgical History Abdominal Surgery: Yes (hernia repair) AICD: No Appendectomy: Yes Arteriovenous Shunt: No Cardiac Surgery: No Cholecystectomy: No Coronary Artery Bypass Graft: No Ear Surgery: No Endocrine Surgery: No Eye Surgery: No Genitourinary Surgery: No Gynecologic Surgery: No Joint Replacement: No Neurologic Surgery: No Oral Surgery: No Pacemaker: No Thoracic Surgery: No Other Surgery: Yes (2 cysts removed from neck) Social History Alcohol Use: No Tobacco Use: Yes (1 ppd) Substance Use: Yes (MORPHINE, DILAUDID ICE AND HEROIN) Allergies-Medications (Allergen,Severity, Reaction): Coded Allergies: aspirin (Unverified Allergy, Severe, BLEEDING ULCERS, 05/28/17) clonazepam (Unverified Allergy, Severe, Hallucinations, 05/28/17) iodine (Unverified Allergy, Severe, Rash, 05/28/17) SKIN SLOUGHS OFF PER PT " GETS EATEN TO THE BONE" paroxetine (Unverified Allergy, Severe, Rash, 05/28/17) potassium iodide (Unverified Allergy, Severe, Rash, 05/28/17) SKIN SLOUGHS OFF PER PT " GETS EATEN TO THE BONE" povidone-iodine (Unverified Allergy, Severe, Rash, 05/28/17) SKIN SLOUGHS OFF PER PT " GETS EATEN TO THE BONE" sodium iodide (Unverified Allergy, Severe, Rash, 05/28/17) SKIN SLOUGHS OFF PER PT " GETS EATEN TO THE BONE" sodium iodide (Unverified Allergy, Severe, Rash, 05/28/17) SKIN SLOUGHS OFF PER PT " GETS EATEN TO THE BONE" ziprasidone (Unverified Allergy, Severe, TONGUE SWELLING, 05/28/17) Reported Meds & Prescriptions Reported Meds & Active Scripts Active Keflex (Cephalexin) 500 Mg Cap 500 Mg PO Q8H Bactrim DS (Sulfamethoxazole-Trimethoprim) 800-160 Mg Tab 1 Tab PO BID Bactrim DS (Sulfamethoxazole-Trimethoprim) 800-160 Mg Tab 1 Tab PO BID 10 Days Reported Seroquel (Quetiapine Fumarate) 400 Mg Tab 800 Mg PO DAILY Zoloft (Sertraline HCl) 50 Mg Tab 50 Mg PO DAILY Review of Systems General / Constitutional: No: Fever Eyes: No: Visual changes HENT: No: Headaches Cardiovascular: No: Chest Pain or Discomfort Respiratory: No: Shortness of Breath Gastrointestinal: Positive: Abdominal Pain, Hematochezia Genitourinary: No: Dysuria Musculoskeletal: No: Pain Skin: No Rash Neurologic: No: Weakness Psychiatric: No: Depression Endocrine: No: Polydipsia Hematologic/Lymphatic: No: Easy Bruising Physical Exam Narrative GENERAL: Well-nourished, well-developed patient. SKIN: Focused skin assessment warm/dry. HEAD: Normocephalic. EYES: No scleral icterus. No injection or drainage. NECK: Supple, trachea midline. No JVD or lymphadenopathy. CARDIOVASCULAR: Regular rate and rhythm without murmurs, gallops, or rubs. RESPIRATORY: Breath sounds equal bilaterally. No accessory muscle use. GASTROINTESTINAL: Abdomen soft, nondistended. Patient has mild tenderness in palpation lower abdomen. No rebound tenderness. No mass. Rectal exam reveals a large rectal prolapse. No active bleeding per rectum. MUSCULOSKELETAL: No cyanosis, or edema. BACK: Nontender without obvious deformity. No CVA tenderness. Neurologic exam normal. Data Data Last Documented VS Vital Signs Date Time Temp Pulse Resp B/P (MAP) Pulse Ox O2 Delivery O2 Flow Rate FiO2 05/28/17 13:49 97.9 110 16 110/64 (79) 96 Orders Orders Complete Blood Count With Diff (05/28/17 14:29) Comprehensive Metabolic Panel (05/28/17 14:29) Urinalysis - C+S If Indicated (05/28/17 14:29) Iv Access Insert/Monitor (05/28/17 14:29) Oxygen Administration (05/28/17 14:29) Oximetry (05/28/17 14:29) Lipase (05/28/17 14:29) Sodium Chlor 0.9% 1000 Ml Inj (Ns 1000 M (05/28/17 15:45) Labs Laboratory Tests Test 05/28/17 15:43 White Blood Count 12.0 TH/MM3 Red Blood Count 4.18 MIL/MM3 Hemoglobin 12.9 GM/DL Hematocrit 38.8 % Mean Corpuscular Volume 92.9 FL Mean Corpuscular Hemoglobin 31.0 PG Mean Corpuscular Hemoglobin Concent 33.3 % Red Cell Distribution Width 13.7 % Platelet Count 258 TH/MM3 Mean Platelet Volume 8.3 FL Neutrophils (%) (Auto) 75.8 % Lymphocytes (%) (Auto) 13.0 % Monocytes (%) (Auto) 9.7 % Eosinophils (%) (Auto) 0.7 % Basophils (%) (Auto) 0.8 % Neutrophils # (Auto) 9.1 TH/MM3 Lymphocytes # (Auto) 1.6 TH/MM3 Monocytes # (Auto) 1.2 TH/MM3 Eosinophils # (Auto) 0.1 TH/MM3 Basophils # (Auto) 0.1 TH/MM3 CBC Comment DIFF FINAL Differential Comment Urine Color YELLOW Urine Turbidity CLEAR Urine pH 6.5 Urine Specific [place] 1.025 Urine Protein TRACE mg/dL Urine Glucose (UA) TRACE mg/dL Urine Ketones NEG mg/dL Urine Occult Blood NEG Urine Nitrite NEG Urine Bilirubin NEG Urine Urobilinogen 2.0 MG/DL Urine Leukocyte Esterase NEG Urine RBC 2 /hpf Urine WBC 1 /hpf Urine Squamous Epithelial Cells 1 /hpf Urine Amorphous Sediment RARE Urine Mucus FEW /lpf Urine Sperm RARE Microscopic Urinalysis Comment CULT NOT INDICATED Blood Urea Nitrogen 14 MG/DL Creatinine 0.80 MG/DL Random Glucose 117 MG/DL Total Protein 7.6 GM/DL Albumin 3.1 GM/DL Calcium Level 8.8 MG/DL Alkaline Phosphatase 96 U/L Aspartate Amino Transf (AST/SGOT) 90 U/L Alanine Aminotransferase (ALT/SGPT) 122 U/L Total Bilirubin 0.8 MG/DL Sodium Level 139 MEQ/L Potassium Level 3.6 MEQ/L Chloride Level 103 MEQ/L Carbon Dioxide Level 27.4 MEQ/L Anion Gap 9 MEQ/L Estimat Glomerular Filtration Rate 99 ML/MIN Lipase 75 U/L [facility] Medical Decision Making Medical Screen Exam Complete: Yes Emergency Medical Condition: Yes Interpretation(s) 17 12 PM. CBC WBC 12.0. Hemoglobin 12.9 hematocrit 38.8. 75 neutrophil. AST 19. ALT 122. UA is negative. Differential Diagnosis Differential diagnosis including UTI, pyelonephritis, nephrolithiasis, colitis, GI bleed, rectal prolapse. Narrative Course 61-year-old male with low abdominal pain and rectal prolapse. Normal saline solution 1 L IV bolus. Gentle pressure reduction of rectal prolapse successful. 1716 p.m. Reexamination patient feeling much better. Patient wants to leave. Procedures Procedure Narrative Patient was put into Trendelenburg position. Gentle pressure applied to the rectum. Rectal prolapse was reduced without complication. Diagnosis Primary Impression: Rectal prolapse Patient Instructions: General Instructions Additional Instructions: Follow-up local physician. Return as needed. Return if increased abdominal pain, fever, vomiting. Med/Other Pt SpecificInfo: No Change to Meds Disposition: 01 DISCHARGE HOME Condition: Stable Sung Concepcion MD May 28, 2017 15:40
[2017-05-28] MEDS ORDERED: SODIUM CHLOR 0.9% 1000 ML INJ 1,000 ML IV ONE (15:45)
[2017-05-28 16:10] LABS: AUTOMATED NEUTROPHIL # 9.1 TH/MM3 (1.8-7.7); BASOPHIL # 0.1 TH/MM3 (0-0.2); BASOPHIL % 0.8 % (0.0-2.0); EOSINOPHIL # 0.1 TH/MM3 (0-0.4); EOSINOPHIL % 0.7 % (0.0-4.0); HEMATOCRIT 38.8 % (39.0-51.0); HEMOGLOBIN 12.9 GM/DL (13.0-17.0); LYMPHOCYTE # 1.6 TH/MM3 (1.0-4.8); MEAN CELL VOLUME 92.9 FL (80.0-100.0); MEAN CORPUSCULAR HGB CONC 33.3 % (32.0-36.0); MEAN PLATELET VOLUME 8.3 FL (7.0-11.0); MONO % 9.7 % (0.0-8.0); MONOCYTE # 1.2 TH/MM3 (0-0.9); NEUT % 75.8 % (16.0-70.0); PLATELET COUNT 258 TH/MM3 (150-450); RED BLOOD COUNT 4.18 MIL/MM3 (4.50-5.90); RED CELL DISTRIBUTION WIDTH 13.7 % (11.6-17.2)
[2017-05-28 16:12] LABS: AMORPHOUS SEDIMENT, URINE RARE; BILIRUBIN, URINE NEG (NEG); BLOOD, URINE NEG (NEG); GLUCOSE,URINE TRACE mg/dL (NEG); KETONE, URINE NEG (NEG); MUCUS URINE FEW /lpf (OCC); NITRITE,URINE NEG (NEG); PH, URINE 6.5 (5.0-8.5); SPERM, URINE RARE; SQUAMOUS EPITHELIAL CELL URINE 1 /hpf (0-5); URINE COLOR YELLOW (YELLW/STRAW); URINE LEUKOCYTE ESTERASE NEG (NEG)
[2017-05-28 16:31] LABS: ALBUMIN 3.1 GM/DL (3.4-5.0); AST (GOT) 90 U/L (15-37); BICARBONATE 27.4 MEQ/L (21.0-32.0); BLOOD UREA NITROGEN 14 MG/DL (7-18); CALCIUM 8.8 MG/DL (8.5-10.1); CHLORIDE 103 MEQ/L (98-107); GLOMERULAR FILTRATION RATE 99 ML/MIN (>89); GLUCOSE,RANDOM 117 MG/DL (74-106); SODIUM (NA) 139 MEQ/L (136-145)
[2017-05-28 16:34] LABS: ALKALINE PHOSPHATASE 96 U/L (45-117); ALT (GPT) 122 U/L (12-78); TOTAL BILIRUBIN ADULT 0.8 MG/DL (0.2-1.0); TOTAL PROTEIN 7.6 GM/DL (6.4-8.2)
[2017-05-28 17:52] VITALS: BP 116/68
== END 2017-05-28 17:54 | disposition home or self-care (01) ==
LOC: NEPD 13:34
DX: K62.3 Rectal prolapse (principal); F31.9 Bipolar disorder, unspecified; F41.9 Anxiety disorder, unspecified; F20.9 Schizophrenia, unspecified; R56.9 Unspecified convulsions; F11.90 Opioid use, unspecified, uncomplicated; F17.200 Nicotine dependence, unspecified, uncomplicated; Z86.19 Personal history of other infectious and parasitic diseases; Z79.899 Other long term (current) drug therapy
CPT/HCPCS: 80053; 81001; 83690; 85025; 99284; J7030

== ENCOUNTER 2017-06-15 20:36 | Emergency (ER) | payer SELFPAY ==
[~2017-06-15] VITALS: Ht 180.3 cm; Wt 77.7 kg
[2017-06-15 20:41] VITALS: BP 118/77; PULSE 99; RESP 20; TEMP 98.4; O2SAT 99
--- NOTE | 2017-06-16 13:18 | PD ---
Physical Exam Date Seen by Provider: Jun 15, 2017 Time Seen by Provider: 20:41 Narrative 61 year old male presents to the emergency department stating that he can't urinate, but when he does, he doesn't have control over it. He also reports left flank pain and constipation. Current pain is 7/10. Moderate severity. Data Data Last Documented VS Vital Signs Date Time Temp Pulse Resp B/P (MAP) Pulse Ox O2 Delivery O2 Flow Rate FiO2 06/15/17 20:41 98.4 99 20 118/77 (91) 99 MDM Supervised Visit with KIM: No Narrative Course 61 year old male presents to the emergency department for urinary symptoms, flank pain, constipation. He is initially seen in triage and work up is initiated. He left AMA before he could be moved to a medical bed. Diagnosis Primary Impression: Left against medical advice Patient Instructions: General Instructions Departure Forms: Tests/Procedures Disposition: 07 AGAINST MEDICAL ADVICE Charlene King Jun 16, 2017 13:18
== END 2017-06-15 23:27 | disposition left against medical advice (07) ==
LOC: NED 20:36
DX: R10.9 Unspecified abdominal pain (principal); K59.00 Constipation, unspecified
CPT/HCPCS: 99281

== ENCOUNTER 2017-06-19 09:29 | Emergency (ER) | payer SELFPAY ==
[~2017-06-19] VITALS: Ht 177.8 cm; Wt 70.0 kg
[2017-06-19 09:41] VITALS: BP 122/64; PULSE 91; RESP 20; TEMP 98.3; O2SAT 97
[2017-06-19] MEDS ORDERED: TAMS5CAP PO (10:46)
[2017-06-19] MEDS ORDERED: COLA100C5 PO (10:46)
--- NOTE | 2017-06-19 10:48 | PD ---
HPI Chief Complaint: GI Complaint Time Seen by Provider: 09:48 Travel History International Travel<30 days: No Contact w/Intl Traveler<30days: No Traveled to known affect area: No History of Present Illness HPI Is a 61-year-old man presents to the emergency department complaining of abdominal pain, difficulty urinating, and rectal prolapse. States he is having to strain to urinate and he pushed so hard this morning and caused rectal prolapse. This happened to him one time earlier. Endorses illicit drug use, last used earlier today. States he normally gets up 5 times a night or so to urinate. He said a Bauer catheter before but not for urinary retention that he can recall. History Past Medical History Narrative Medical Illicit drug use Social History Alcohol Use: No Tobacco Use: Yes (1 ppd) Allergies-Medications (Allergen,Severity, Reaction): Coded Allergies: aspirin (Unverified Allergy, Severe, BLEEDING ULCERS, 05/28/17) clonazepam (Unverified Allergy, Severe, Hallucinations, 05/28/17) iodine (Unverified Allergy, Severe, Rash, 05/28/17) SKIN SLOUGHS OFF PER PT " GETS EATEN TO THE BONE" paroxetine (Unverified Allergy, Severe, Rash, 05/28/17) potassium iodide (Unverified Allergy, Severe, Rash, 05/28/17) SKIN SLOUGHS OFF PER PT " GETS EATEN TO THE BONE" povidone-iodine (Unverified Allergy, Severe, Rash, 05/28/17) SKIN SLOUGHS OFF PER PT " GETS EATEN TO THE BONE" sodium iodide (Unverified Allergy, Severe, Rash, 05/28/17) SKIN SLOUGHS OFF PER PT " GETS EATEN TO THE BONE" sodium iodide (Unverified Allergy, Severe, Rash, 05/28/17) SKIN SLOUGHS OFF PER PT " GETS EATEN TO THE BONE" ziprasidone (Unverified Allergy, Severe, TONGUE SWELLING, 05/28/17) Reported Meds & Prescriptions Reported Meds & Active Scripts Active Reported Seroquel (Quetiapine Fumarate) 400 Mg Tab 800 Mg PO DAILY Zoloft (Sertraline HCl) 50 Mg Tab 50 Mg PO DAILY Review of Systems Except as stated in HPI: all other systems reviewed are Neg Physical Exam Narrative GENERAL: 61-year-old disheveled man, appears uncomfortable but nontoxic SKIN: Focused skin assessment warm/dry. HEAD: Atraumatic. Normocephalic. EYES: Pupils equal and round. No scleral icterus. No injection or drainage. ENT: No nasal bleeding or discharge. Mucous membranes pink and moist. NECK: Trachea midline. No JVD. CARDIOVASCULAR: Regular rate and rhythm. No murmur appreciated. RESPIRATORY: No accessory muscle use. Clear to auscultation. Breath sounds equal bilaterally. GASTROINTESTINAL: Abdomen is soft, with mild lower abdominal tenderness, and some fullness and distention in the suprapubic area. RECTAL: Moderate rectal prolapse. Reduced. MUSCULOSKELETAL: No obvious deformities. No clubbing. No cyanosis. No edema. NEUROLOGICAL: Awake and alert. No obvious cranial nerve deficits. Motor grossly within normal limits. Normal speech. Data Data Last Documented VS Vital Signs Date Time Temp Pulse Resp B/P (MAP) Pulse Ox O2 Delivery O2 Flow Rate FiO2 06/19/17 09:41 98.3 91 20 122/64 (83) 97 Orders Orders Ed Poc Ultrasound (06/19/17 ) Basic Metabolic Panel (Bmp) (06/19/17 10:10) Urinary Catheter Insert/Apply (06/19/17 10:10) Mandatory Outpatient Referral (06/19/17 10:10) [facility] Medical Decision Making Medical Screen Exam Complete: Yes Emergency Medical Condition: Yes Differential Diagnosis Rectal prolapse, bladder outlet obstruction, Narrative Course (61-year-old man presents to the emergency department with bladder outlet obstruction and rectal prolapse from straining. Rectal prolapse was reduced at the bedside. Bladder continues significant amount of urine however he is still a little void on his own over [address] him on Flomax, outpatient urology follow-up, stool softeners to reduce her chance of rectal prolapse recurrence. Procedures Procedure Narrative Bedside ultrasound: Focused transabdominal ultrasound was performed by me to evaluate for bladder distention. Markedly distended bladder with about 1000 mL' s of urine was visualized. Additional Instructions: Take medications as prescribed. Follow-up with urology for repeat evaluation. Flomax is to make it easier for her to urinate C do not strain. Colace is make her bowel movements softer so that you will not have to strain. This is to reduce the chance that your rectal prolapse will recur. Return to the emergency department for any new or worsening symptoms. Med/Other Pt SpecificInfo: Prescription(s) given Scripts Docusate Sodium (Colace) 100 Mg Capsule 100 MG PO BID for Prevent Constipation, #60 CAP 0 Refills Prov: Dawit Haynes MD 06/19/17 Tamsulosin (Flomax) 0.4 Mg Cap 0.4 MG PO HS for Manage Prostate Problems, #30 CAP 0 Refills Prov: Dawit Haynes MD 06/19/17 Disposition: 01 DISCHARGE HOME Condition: Stable Dawit Haynes MD Jun 19, 2017 10:47
[2017-06-19 11:00] VITALS: BP 118/64
--- NOTE | 2017-06-19 11:04 | PD ---
Data Data Last Documented VS Vital Signs Date Time Temp Pulse Resp B/P (MAP) Pulse Ox O2 Delivery O2 Flow Rate FiO2 06/19/17 11:00 74 16 118/64 (82) 99 06/19/17 09:41 98.3 Orders Orders Ed Poc Ultrasound (06/19/17 ) Mandatory Outpatient Referral (06/19/17 10:10) Ed Discharge Order (06/19/17 10:48) MDM Supervised Visit with KIM: Yes Diagnosis Primary Impression: Bladder outlet obstruction Additional Instruction: Take medications as prescribed. Follow-up with urology for repeat evaluation. Flomax is to make it easier for her to urinate C do not strain. Colace is make her bowel movements softer so that you will not have to strain. This is to reduce the chance that your rectal prolapse will recur. Return to the emergency department for any new or worsening symptoms. Scripts Docusate Sodium (Colace) 100 Mg Capsule 100 MG PO BID for Prevent Constipation, #60 CAP 0 Refills Prov: Dawit Haynes MD 06/19/17 Tamsulosin (Flomax) 0.4 Mg Cap 0.4 MG PO HS for Manage Prostate Problems, #30 CAP 0 Refills Prov: Dawit Haynes MD 06/19/17 Disposition: 01 DISCHARGE HOME Condition: Stable Dawit Haynes MD Jun 19, 2017 11:04
== END 2017-06-19 11:19 | disposition home or self-care (01) ==
LOC: NEPD 09:29
DX: N32.0 Bladder-neck obstruction (principal); K62.3 Rectal prolapse; F17.200 Nicotine dependence, unspecified, uncomplicated; Z79.899 Other long term (current) drug therapy; Z88.6 Allergy status to analgesic agent; Z88.8 Allergy status to other drugs, medicaments and biological substances
CPT/HCPCS: 99284

== ENCOUNTER 2017-08-22 07:15 | Emergency (ER) | payer SELFPAY ==
[~2017-08-22] VITALS: Ht 180.3 cm; Wt 85.0 kg
[~2017-08-22 07:15] MED LIST changes: -BACT800T5 PO; -CEPH-460 PO; +COLA100C5 PO; +TAMS5CAP PO
[2017-08-22 07:23] VITALS: BP 105/68; PULSE 63; RESP 26; O2SAT 98
[2017-08-22] MEDS ORDERED: SODIUM CHLOR 0.9% 1000 ML INJ 1,000 ML IV SCH (07:35)
--- NOTE | 2017-08-22 07:41 | PD ---
HPI Chief Complaint: Fall Time Seen by Provider: 07:29 Travel History International Travel<30 days: No Contact w/Intl Traveler<30days: No Traveled to known affect area: No History of Present Illness HPI The patient is a 61-year-old male who presents to the emergency department via EMS for altered mental status after a fall. According to EMS the patient was sitting on the wall, approximately 1 foot off the ground, when he fell forward, striking his head. There is an unknown loss of consciousness. The patient is able to follow commands upon arrival, however, appears to have difficulty speaking. The patient is a poor historian and no further information is obtainable from the patient. Records do reveal the patient does have a history of psychiatric illness and previous polysubstance abuse. The patient was noted to have a hematoma the left frontal forehead. PFSH Past Medical History Asthma: No Autoimmune Disease: No Blood Disorders: Yes (Hep C) Bipolar Disorder: Yes Anxiety: Yes Depression: Yes Heart Rhythm Problems: No Cancer: No Cardiac Catheterization: No Cardiovascular Problems: Yes High Cholesterol: No Chemotherapy: No Chest Pain: Yes Congestive Heart Failure: No Cirrhosis: No Cerebrovascular Accident: No Diabetes: No Diminished Hearing: No Endocrine: No Gastrointestinal Disorders: Yes (BLEEDING ULCERS) GERD: No Glaucoma: No Genitourinary: No Headaches: No Hepatitis: Yes (Hep C) Hiatal Hernia: Yes (REPAIRED A CHILD) Hypertension: No Immune Disorder: No Implanted Vascular Access Dvce: No Kidney Stones: No Medical other: Yes (IV DRUG USER) Musculoskeletal: Yes (CHRONIC LOW BACK) Neurologic: Yes Psychiatric: Yes Reproductive: No Respiratory: No Immunizations Current: No Migraines: No Myocardial Infarction: No Radiation Therapy: No Renal Failure: No Schizophrenia: Yes (SCHIZOAFFECTIVE) Seizures: Yes (R/T WITHDRAWAL) Sickle Cell Disease: No Sleep Apnea: No Thyroid Disease: No Ulcer: Yes Tetanus Vaccination: > 5 Years Influenza Vaccination: No Past Surgical History Abdominal Surgery: Yes (hernia repair) AICD: No Appendectomy: Yes Arteriovenous Shunt: No Cardiac Surgery: No Cholecystectomy: No Coronary Artery Bypass Graft: No Ear Surgery: No Endocrine Surgery: No Eye Surgery: No Genitourinary Surgery: No Gynecologic Surgery: No Joint Replacement: No Neurologic Surgery: No Oral Surgery: No Pacemaker: No Thoracic Surgery: No Other Surgery: Yes (2 cysts removed from neck) Social History Alcohol Use: No Tobacco Use: Yes (1 ppd) Substance Use: Yes (MORPHINE, DILAUDID ICE AND HEROIN iv) Allergies-Medications (Allergen,Severity, Reaction): Coded Allergies: aspirin (Unverified Allergy, Severe, BLEEDING ULCERS, 08/22/17) clonazepam (Unverified Allergy, Severe, Hallucinations, 08/22/17) iodine (Unverified Allergy, Severe, Rash, 08/22/17) SKIN SLOUGHS OFF PER PT " GETS EATEN TO THE BONE" paroxetine (Unverified Allergy, Severe, Rash, 08/22/17) potassium iodide (Unverified Allergy, Severe, Rash, 08/22/17) SKIN SLOUGHS OFF PER PT " GETS EATEN TO THE BONE" povidone-iodine (Unverified Allergy, Severe, Rash, 08/22/17) SKIN SLOUGHS OFF PER PT " GETS EATEN TO THE BONE" sodium iodide (Unverified Allergy, Severe, Rash, 08/22/17) SKIN SLOUGHS OFF PER PT " GETS EATEN TO THE BONE" sodium iodide (Unverified Allergy, Severe, Rash, 08/22/17) SKIN SLOUGHS OFF PER PT " GETS EATEN TO THE BONE" ziprasidone (Unverified Allergy, Severe, TONGUE SWELLING, 08/22/17) Reported Meds & Prescriptions Reported Meds & Active Scripts Active Colace (Docusate Sodium) 100 Mg Capsule 100 Mg PO BID Flomax (Tamsulosin HCl) 0.4 Mg Cap 0.4 Mg PO HS Reported Seroquel (Quetiapine Fumarate) 400 Mg Tab 800 Mg PO DAILY Zoloft (Sertraline HCl) 50 Mg Tab 50 Mg PO DAILY Review of Systems ROS Limitations: Altered Mental Status, Poor Historian Except as stated in HPI: all other systems reviewed are Neg HENT: Positive: Other (Hematoma to the left frontal forehead per EMS) Neurologic: Positive: Change in Mentation Physical Exam Narrative GENERAL: Eyes open, appears to have difficulty speaking. Follow simple commands. SKIN: Focused skin assessment warm/dry. HEAD: Hematoma approximately 3 cm in diameter noted to the left frontal forehead. EYES: Pupils equal and round. Pupils 2 mm bilateral and reactive. EOMs are intact. ENT: No nasal bleeding or discharge. Mucous membranes pink and moist. Poor dentition. NECK: Trachea midline. No JVD. CARDIOVASCULAR: Regular rate and rhythm. No murmur appreciated. RESPIRATORY: No accessory muscle use. Clear to auscultation. Breath sounds equal bilaterally. GASTROINTESTINAL: Abdomen soft, non-tender, nondistended. No rebound tenderness. MUSCULOSKELETAL: No obvious deformities. No clubbing. No cyanosis. Mild edema to the ankles bilaterally. NEUROLOGICAL: Awake and alert. No obvious cranial nerve deficits. Motor grossly within normal limits. Patient has difficulty speaking, he is able to mouth the words, however, the voice is very low and hard to distinguish at times PSYCHIATRIC: Unable to assess. Data Data Last Documented VS Vital Signs Date Time Temp Pulse Resp B/P (MAP) Pulse Ox O2 Delivery O2 Flow Rate FiO2 08/22/17 11:30 62 20 104/58 (73) 99 Room Air Orders Orders Electrocardiogram (08/22/17 07:35) Ammonia (08/22/17 07:35) Complete Blood Count With Diff (08/22/17 07:35) Comprehensive Metabolic Panel (08/22/17 07:35) Creatine Kinase (Cpk) (08/22/17 07:35) Prothrombin Time / Inr (Pt) (08/22/17 07:35) Act Partial Throm Time (Ptt) (08/22/17 07:35) Troponin I (08/22/17 07:35) Thyroid Stimulating Hormone (08/22/17 07:35) Urinalysis - C+S If Indicated (08/22/17 07:35) Lactic Acid Sepsis Protocol (08/22/17 07:35) Blood Culture (08/22/17 07:35) Chest, Single Ap (08/22/17 07:35) Ct Brain W/O Iv Contrast(Rout) (08/22/17 07:35) Blood Glucose (08/22/17 07:35) Ecg Monitoring (08/22/17 07:35) Iv Access Insert/Monitor (08/22/17 07:35) Oximetry (08/22/17 07:35) Sodium Chloride 0.9% Flush (Ns Flush) (08/22/17 07:45) Sodium Chlor 0.9% 1000 Ml Inj (Ns 1000 M (08/22/17 07:35) Drug Screen, Random Urine (08/22/17 07:35) Alcohol (Ethanol) (08/22/17 07:35) CKMB (08/22/17 07:30) CKMB% (08/22/17 07:30) Sodium Chlor 0.9% 1000 Ml Inj (Ns 1000 M (08/22/17 09:30) Ed Discharge Order (08/22/17 13:25) Labs Laboratory Tests Test 08/22/17 07:30 08/22/17 07:58 08/22/17 09:15 White Blood Count 7.0 TH/MM3 Red Blood Count 3.79 MIL/MM3 Hemoglobin 11.8 GM/DL Hematocrit 34.6 % Mean Corpuscular Volume 91.3 FL Mean Corpuscular Hemoglobin 31.1 PG Mean Corpuscular Hemoglobin Concent 34.1 % Red Cell Distribution Width 13.1 % Platelet Count 188 TH/MM3 Mean Platelet Volume 9.5 FL Neutrophils (%) (Auto) 57.2 % Lymphocytes (%) (Auto) 27.7 % Monocytes (%) (Auto) 10.7 % Eosinophils (%) (Auto) 3.0 % Basophils (%) (Auto) 1.4 % Neutrophils # (Auto) 4.0 TH/MM3 Lymphocytes # (Auto) 1.9 TH/MM3 Monocytes # (Auto) 0.7 TH/MM3 Eosinophils # (Auto) 0.2 TH/MM3 Basophils # (Auto) 0.1 TH/MM3 CBC Comment DIFF FINAL Differential Comment Prothrombin Time 10.9 SEC Prothromb Time International Ratio 1.1 RATIO Activated Partial Thromboplast Time 27.3 SEC Blood Urea Nitrogen 15 MG/DL Creatinine 0.60 MG/DL Random Glucose 83 MG/DL Total Protein 7.4 GM/DL Albumin 3.0 GM/DL Calcium Level 8.0 MG/DL Alkaline Phosphatase 84 U/L Aspartate Amino Transf (AST/SGOT) 140 U/L Alanine Aminotransferase (ALT/SGPT) 145 U/L Total Bilirubin 0.8 MG/DL Sodium Level 139 MEQ/L Potassium Level 3.7 MEQ/L Chloride Level 106 MEQ/L Carbon Dioxide Level 23.9 MEQ/L Anion Gap 9 MEQ/L Estimat Glomerular Filtration Rate 137 ML/MIN Total Creatine Kinase 1006 U/L Creatine Kinase MB 36.6 NG/ML Creatine Kinase MB % 3.6 % Troponin I LESS THAN 0.02 NG/ML Thyroid Stimulating Hormone 3rd Gen 1.820 uIU/ML Ethyl Alcohol Level LESS THAN 3 MG/DL Lactic Acid Level 0.7 mmol/L Ammonia 39 MCMOL/L Urine Color YELLOW Urine Turbidity CLEAR Urine pH 6.0 Urine Specific [place] 1.028 Urine Protein NEG mg/dL Urine Glucose (UA) NEG mg/dL Urine Ketones NEG mg/dL Urine Occult Blood NEG Urine Nitrite NEG Urine Bilirubin NEG Urine Urobilinogen 2.0 MG/DL Urine Leukocyte Esterase NEG Urine RBC LESS THAN 1 /hpf Urine WBC 1 /hpf Urine Transitional Epithelial Cells 2 /hpf Urine Mucus FEW /lpf Microscopic Urinalysis Comment CATH-CULT NOT IND Urine Opiates Screen NEG Urine Barbiturates Screen NEG Urine Amphetamines Screen POS Urine Benzodiazepines Screen NEG Urine Cocaine Screen NEG Urine Cannabinoids Screen NEG MDM Medical Decision Making Medical Screen Exam Complete: Yes Emergency Medical Condition: Yes Medical Record Reviewed: Yes Interpretation(s) EKG reveals normal sinus rhythm with a rate of 61. Left anterior fascicular block. Last Impressions Head CT 08/22/17 0735 Signed Impressions: CONCLUSION: 1. Negative CT Head non contrast. Chest X-Ray 08/22/17734 Signed Impressions: CONCLUSION: Negative examination. Laboratory Tests Test 08/22/17 07:30 08/22/17 07:58 08/22/17 09:15 White Blood Count 7.0 TH/MM3 Red Blood Count 3.79 MIL/MM3 Hemoglobin 11.8 GM/DL Hematocrit 34.6 % Mean Corpuscular Volume 91.3 FL Mean Corpuscular Hemoglobin 31.1 PG Mean Corpuscular Hemoglobin Concent 34.1 % Red Cell Distribution Width 13.1 % Platelet Count 188 TH/MM3 Mean Platelet Volume 9.5 FL Neutrophils (%) (Auto) 57.2 % Lymphocytes (%) (Auto) 27.7 % Monocytes (%) (Auto) 10.7 % Eosinophils (%) (Auto) 3.0 % Basophils (%) (Auto) 1.4 % Neutrophils # (Auto) 4.0 TH/MM3 Lymphocytes # (Auto) 1.9 TH/MM3 Monocytes # (Auto) 0.7 TH/MM3 Eosinophils # (Auto) 0.2 TH/MM3 Basophils # (Auto) 0.1 TH/MM3 CBC Comment DIFF FINAL Differential Comment Prothrombin Time 10.9 SEC Prothromb Time International Ratio 1.1 RATIO Activated Partial Thromboplast Time 27.3 SEC Blood Urea Nitrogen 15 MG/DL Creatinine 0.60 MG/DL Random Glucose 83 MG/DL Total Protein 7.4 GM/DL Albumin 3.0 GM/DL Calcium Level 8.0 MG/DL Alkaline Phosphatase 84 U/L Aspartate Amino Transf (AST/SGOT) 140 U/L Alanine Aminotransferase (ALT/SGPT) 145 U/L Total Bilirubin 0.8 MG/DL Sodium Level 139 MEQ/L Potassium Level 3.7 MEQ/L Chloride Level 106 MEQ/L Carbon Dioxide Level 23.9 MEQ/L Anion Gap 9 MEQ/L Estimat Glomerular Filtration Rate 137 ML/MIN Total Creatine Kinase 1006 U/L Creatine Kinase MB 36.6 NG/ML Creatine Kinase MB % 3.6 % Troponin I LESS THAN 0.02 NG/ML Thyroid Stimulating Hormone 3rd Gen 1.820 uIU/ML Ethyl Alcohol Level LESS THAN 3 MG/DL Lactic Acid Level 0.7 mmol/L Ammonia 39 MCMOL/L Urine Color YELLOW Urine Turbidity CLEAR Urine pH 6.0 Urine Specific [place] 1.028 Urine Protein NEG mg/dL Urine Glucose (UA) NEG mg/dL Urine Ketones NEG mg/dL Urine Occult Blood NEG Urine Nitrite NEG Urine Bilirubin NEG Urine Urobilinogen 2.0 MG/DL Urine Leukocyte Esterase NEG Urine RBC LESS THAN 1 /hpf Urine WBC 1 /hpf Urine Transitional Epithelial Cells 2 /hpf Urine Mucus FEW /lpf Microscopic Urinalysis Comment CATH-CULT NOT IND Urine Opiates Screen NEG Urine Barbiturates Screen NEG Urine Amphetamines Screen POS Urine Benzodiazepines Screen NEG Urine Cocaine Screen NEG Urine Cannabinoids Screen NEG Differential Diagnosis Differential diagnosis includes closed head injury, intracranial hemorrhage, subarachnoid hemorrhage, epidural hemorrhage, subdural hemorrhage, alcohol intoxication, polysubstance abuse, hyponatremia, encephalopathy, dehydration. Narrative Course IV was established, labs were drawn and sent, the patient was placed on cardiac telemetry monitoring and continuous pulse oximetry monitoring. EKG was ordered and interpreted. Chest x-ray was obtained. CT of the brain was obtained. CT the brain is negative. Chest x-ray is unremarkable. Sodium is normal. Alcohol is negative. Tox screen is positive for amphetamines. The patient was monitored in the emergency department. He is resting comfortably, vitals were normal. Patient was reevaluated at 1:20 PM, he got agitated upon waking up, stated "get your hands off me motherfucker". The patient was able to sit upright in bed, was oriented, therefore, patient will be discharged. Diagnosis Primary Impression: Polysubstance abuse Patient Instructions: General Instructions Additional Instructions: Stop using methamphetamines. Follow-up with a primary physician. Return if symptoms worsen or progress. Disposition: 01 DISCHARGE HOME Condition: Stable Gomez Inman MD Aug 22, 2017 07:41
[2017-08-22] MEDS ORDERED: SODIUM CHLORIDE 0.9% FLUSH 10 ML FLUSH IV FLUSH PRN (07:45)
[2017-08-22 08:00] VITALS: BP 112/71; PULSE 65; RESP 20; O2SAT 98
--- NOTE | 2017-08-22 08:05 | RADRPT ---
EXAM DATE: 08/22/2017 8:01 AM EDT AGE/SEX: 61 years / Male INDICATIONS: Syncope. CLINICAL DATA: This is the patient's initial encounter. Patient reports that signs and symptoms have been present for 1 day and indicates a pain score of Nonresponsive. MEDICAL/SURGICAL HISTORY: . Hypercholesterolemia. Hypertension. Bi-polar. . Inguinal hernia re pair. Back surgery and cardiac cath. COMPARISON: [facility], CHEST SINGLE AP, 04/21/2016. . FINDINGS: A single AP view of the chest demonstrates the lungs to be symmetrically aerated without evidence of mass, infiltrate or effusion. The cardiomediastinal contours are unremarkable. Osseous structures a re intact. CONCLUSION: Negative examination. Electronically signed by: Denilson Avila MD 08/22/2017 8:04 AM EDT
[2017-08-22 08:15] LABS: BASOPHIL # 0.1 TH/MM3 (0-0.2); BASOPHIL % 1.4 % (0.0-2.0); EOSINOPHIL # 0.2 TH/MM3 (0-0.4); HEMATOCRIT 34.6 % (39.0-51.0); HEMOGLOBIN 11.8 GM/DL (13.0-17.0); LYMPH % 27.7 % (9.0-44.0); LYMPHOCYTE # 1.9 TH/MM3 (1.0-4.8); MEAN CELL VOLUME 91.3 FL (80.0-100.0); MEAN CORPUSCULAR HEMOGLOBIN 31.1 PG (27.0-34.0); MEAN CORPUSCULAR HGB CONC 34.1 % (32.0-36.0); MEAN PLATELET VOLUME 9.5 FL (7.0-11.0); MONO % 10.7 % (0.0-8.0); MONOCYTE # 0.7 TH/MM3 (0-0.9); NEUT % 57.2 % (16.0-70.0); PLATELET COUNT 188 TH/MM3 (150-450); RED BLOOD COUNT 3.79 MIL/MM3 (4.50-5.90); RED CELL DISTRIBUTION WIDTH 13.1 % (11.6-17.2)
[2017-08-22 08:25] LABS: INTERNATIONAL NORMALIZED RATIO 1.1 RATIO; PROTHROMBIN TIME - PATIENT 10.9 SEC (9.8-11.6)
--- NOTE | 2017-08-22 08:25 | RADRPT ---
EXAM DATE: 08/22/2017 8:17 AM EDT AGE/SEX: 61 years / Male INDICATIONS: Altered mental status. CLINICAL DATA: This is the patient's initial encounter. Patient reports that signs and symptoms have been present for 1 day and indicates a pain score of Nonresponsive. MEDICAL/SURGICAL HISTORY: Hepatitis C. Appendectomy. RADIATION DOSE: 56.35 CTDI (mGy) COMPARISON: [facility] [place], CT BRAIN W/O CONTRAST, 09/26/2010. . TECHNIQUE: CT of the head without contrast. Using automated exposure control and adjustment of the mA and/or kV according to patient size, radiation dose was kept as low as reasonably achievable to ob tain optimal diagnostic quality images. FINDINGS: Cerebrum: The ventricles are normal for age. No evidence of midline shift, mass lesion, hemorrhage or acute infarction. No extraaxial fluid collections are seen. Posterior Fossa: The cerebellum and brainstem are intact. The 4th ventricle is midline. The cerebe llopontine angle is unremarkable. Extracranial: The visualized portion of the orbits is intact. Skull: The calvaria is intact. No evidence of skull fracture. CONCLUSION: 1. Negative CT Head non contrast. Electronically signed by: Denilson Avila MD 08/22/2017 8:23 AM EDT
[2017-08-22 08:37] LABS: ALT (GPT) 145 U/L (12-78); AST (GOT) 140 U/L (15-37); BICARBONATE 23.9 MEQ/L (21.0-32.0); BLOOD UREA NITROGEN 15 MG/DL (7-18); CHLORIDE 106 MEQ/L (98-107); GLOMERULAR FILTRATION RATE 137 ML/MIN (>89); GLUCOSE,RANDOM 83 MG/DL (74-106); SODIUM (NA) 139 MEQ/L (136-145)
[2017-08-22 08:50] LABS: ALKALINE PHOSPHATASE 84 U/L (45-117); TOTAL BILIRUBIN ADULT 0.8 MG/DL (0.2-1.0); TOTAL PROTEIN 7.4 GM/DL (6.4-8.2); TROPONIN I LESS THAN 0.02 NG/ML (0.02-0.05)
[2017-08-22 09:30] VITALS: BP 108/70; PULSE 57; RESP 20; O2SAT 99
[2017-08-22] MEDS ORDERED: SODIUM CHLOR 0.9% 1000 ML INJ 1,000 ML IV ONE (09:30)
[2017-08-22 09:50] LABS: BILIRUBIN, URINE NEG (NEG); BLOOD, URINE NEG (NEG); GLUCOSE,URINE NEG (NEG); KETONE, URINE NEG (NEG); MUCUS URINE FEW /lpf (OCC); NITRITE,URINE NEG (NEG); TRANSITIONAL EPI CELLS, URINE 2 /hpf; URINE COLOR YELLOW (YELLW/STRAW); URINE LEUKOCYTE ESTERASE NEG (NEG)
[2017-08-22 11:30] VITALS: BP 104/58; PULSE 62; RESP 20; O2SAT 99
--- NOTE | 2017-08-23 15:13 | EKG ---
Date Performed: 08/22/2017 Time Performed: 06:43:51 PTAGE: 61 years EKG: Sinus rhythm LEFT ANTERIOR FASCICULAR BLOCK ABNORMAL ECG PREVIOUS TRACING : 04/21/2016 08.48 Since the previous tracing, no significant change noted DOCTOR: Davis Saldana Interpretating Date/Time 08/23/2017 15:11:43
== END 2017-08-22 13:39 | disposition home or self-care (01) ==
LOC: NEPE 07:15
DX: F19.10 Other psychoactive substance abuse, uncomplicated (principal); S00.83XA Contusion of other part of head, initial encounter; R94.31 Abnormal electrocardiogram [ECG] [EKG]; W17.89XA Other fall from one level to another, initial encounter; F31.9 Bipolar disorder, unspecified; F41.8 Other specified anxiety disorders; F17.200 Nicotine dependence, unspecified, uncomplicated; Z79.899 Other long term (current) drug therapy; Z86.79 Personal history of other diseases of the circulatory system; Z87.19 Personal history of other diseases of the digestive system; Z87.39 Personal history of other diseases of the musculoskeletal system and connective tissue; Z86.69 Personal history of other diseases of the nervous system and sense organs
CPT/HCPCS: 70450; 71045; 80053; 80307; 81001; 82140; 82550; 82552; 83605; 84443; 84484; 85025; 85610; 85730; 87040; 93005; 96360; 96361; 99285; J7030

== ENCOUNTER 2018-02-02 22:18 | Inpatient (IN) ==
[2018-02-02] MEDS ORDERED: Sod Chloride 0.9% Inj 2,000 ML IV.SIG ONE (22:33)
[2018-02-02] MEDS ORDERED: Vancomycin Inj 1,000 MG in Sodium Chlor 0.9% Inj 250 ML IV.SIG STA (22:33)
[2018-02-02] MEDS ORDERED: Piperacil/Tazo 4.5 GM Premix 4.5 GM/100 ML BAG IV.SIG STA (22:33)
[2018-02-02] MEDS ORDERED: Lidocaine 1% Inj 50 ML Vial INFILTRATN ONE (22:37)
[2018-02-02] MEDS ORDERED: Tetanus/Diphtheria Toxoid Adult Vaccine Inj 0.5 ML Vial IM ONE (22:37)
[2018-02-02] MEDS ORDERED: Ketorolac Inj 30 MG/ML (IVP) Vial IV.PUSH ONE (22:37)
--- NOTE | 2018-02-02 23:01 | XR ---
EXAM DATE: 02/02/2018 10:56 PM EST AGE/SEX: 62 years / Male INDICATIONS: Foreign body. Patient states he is an IV drug user and missed causing swelling that sta rted two days ago. CLINICAL DATA: This is the patient's initial encounter. Patient reports that signs and symptoms have been present for 2 days and indicates a pain score of 0/10. MEDICAL/SURGICAL HISTORY: Congestive heart failure. Smoker. IV drug user. None. COMPARISON: No prior exams available for comparison. FINDINGS: 3 views of the left hand. Diffuse soft tissue swelling. No radiopaque foreign body identified. Bone a lignment within normal limits. No evidence of acute fracture. There is an old healed fracture deformi ty at the proximal fifth metatarsal shaft. CONCLUSION: Diffuse soft tissue swelling. No radiopaque foreign body identified. Electronically signed by: Yanick Quintana MD 02/02/2018 10:59 PM EST
--- NOTE | 2018-02-02 23:12 | ED ---
HPI General Chief complaint: Skin/Abscess/Foreign Body Stated complaint: Poss Absece left hand Time Seen by Provider: 02/02/18 22:27 Source: patient Mode of arrival: ambulatory Limitations: no limitations History of Present Illness HPI narrative: 62 YO right hand dominant male with PMH of IVDU presents to the ED for evaluation of 2 day history of pain and swelling of the left hand. Pain is rated 6/10, throbbing in nature. No alleviating or exacerbating factors reported. The patient states that he injected heroin in the area two days ago. He endorses distant injury to the hand and states that he "don't have much feeling in it." He endorses chills, has not measured a temperature at home. He denies CP, palpitations, SOB. He denies limited ROM of the hand. Denies history of MRSA. He denies chronic health problems. He is a current smoker. He does not have a PCP. Related Data Home Medications Medication Instructions Recorded Confirmed No Known Home Medications 02/02/18 02/02/18 Allergies Allergy/AdvReac Type Severity Reaction Status Date / Time aspirin Allergy Severe BLEEDING Verified 12/11/17 13:18 ULCERS clonazepam Allergy Severe Hallucinati Verified 12/11/17 13:18 ons iodine Allergy Severe Rash Verified 12/11/17 13:18 paroxetine Allergy Severe Rash Verified 12/11/17 13:18 potassium iodide Allergy Severe Rash Verified 12/11/17 13:18 povidone-iodine Allergy Severe Rash Verified 12/11/17 13:18 sodium iodide Allergy Severe Rash Verified 12/11/17 13:18 sodium iodide Allergy Severe Rash Verified 12/11/17 13:18 ziprasidone Allergy Severe TONGUE Verified 12/11/17 13:18 SWELLING Review of Systems ROS: all other systems reviewed are negative [facility] Medical History Medical History Schizophrenia (Acute) Hepatitis C (Acute) IVDU (intravenous drug user) (Acute) Surgical History Surgical History Hx of inguinal hernia surgery (Acute) Social History Social History Substance History: Active Abuse Second Hand Smoke Exposure: Yes Smoking Status: Current every day smoker Tobacco Type: Cigarettes How Often Do You Have a Drink Containing Alcohol: Never Recent Travel in [facility] within the Last 8 Weeks: No Recent Out of Country Travel within the Last 8 Weeks: No Substance Abuse Detail Heroin: Substance Use Status: Active Route Used Substance Abuse: Intravenously Reason for Use: Calm Down, Feels Good and Get High Immunization History Tetanus Immunization: Unsure Exam Narrative Exam Narrative: GENERAL: Well-nourished, well-developed, disheveled white male in no acute distress. SKIN: Focused skin assessment warm/dry. HEAD: Atraumatic. Normocephalic. EYES: Pupils equal and round. No scleral icterus. No injection or drainage. ENT: No nasal bleeding or discharge. Mucous membranes pink and moist. NECK: Trachea midline. No JVD. CARDIOVASCULAR: Regular rate and rhythm. No murmur appreciated. RESPIRATORY: No accessory muscle use. Clear to auscultation. Breath sounds equal bilaterally. GASTROINTESTINAL: Abdomen soft, non-tender, nondistended. Hepatic and splenic margins not palpable. MUSCULOSKELETAL: No obvious deformities. No clubbing. No cyanosis. No edema. FOCUSED LEFT UPPER EXTREMITY EXAM: 2+ radial pulse. Significant edema of the hyperthenar eminence and the dorsal aspect of the interdigital space between digits one and two. There is fluctuance. Warm erythema extends to the mid forearm on the lateral aspects. There is cellulitic streaking to the antecubital space. No axillary LAD. No crepitus. The patient is able to flex and extend the digits of the hand. Neurovascularly intact distally on each digit. NEUROLOGICAL: Awake and alert. No obvious cranial nerve deficits. Motor grossly within normal limits. Normal speech. PSYCHIATRIC: Appropriate mood and affect; insight and judgment normal. Course Initial Documented Vital Signs Temperature 102.7 F H 02/02/18 22:20 Pulse Rate 115 H 02/02/18 22:20 Respiratory Rate 22 02/02/18 22:20 Blood Pressure 149/71 H 02/02/18 22:20 Pulse Oximetry 94 L 02/02/18 22:20 Last Documented Vital Signs Temperature 102.7 F H 02/02/18 22:20 Pulse Rate 89 02/02/18 23:30 Respiratory Rate 16 02/02/18 23:30 Blood Pressure 124/78 02/02/18 23:30 Pulse Oximetry 98 02/02/18 23:30 Medical Decision Making KIM Attestation KIM supervised visit: Yes Attestation: I, Dr. Bae, have reviewed the advance practice practitioner's documentation and am in agreement, met with the patient face to face, made the diagnosis, and the medical decision making was done by me. *My assessment and Findings: Patient is a 62-year-old male who presents with complaint of pain and swelling to his hand after injecting drugs recently. He is febrile and tachycardic and septic workup has been initiated with 3 blood cultures drawn (for possible endocarditis) and broad-spectrum antibiotics given. No pain out of proportion or pain outside of the erythematous areas. There was an area of fluctuance which was incised and drained with cultures sent. Heart rate improved with fluids and pain control and he has been hemodynamically stable. He has been admitted to Dr. Hansen, hospitalist on- call, for further evaluation and management of his sepsis. MDM Narrative Medical decision making narrative: 62 YO right hand dominant male with PMH of IVDU presents to the ED for evaluation of 2 day history of pain and swelling of the left hand. Pain is rated 6/10, throbbing in nature. No alleviating or exacerbating factors reported. The patient states that he injected heroin in the area two days ago. Patient is tachycardic and febrile on presentation. There is an abscess on the dorsum of the hand. There are cellulitic changes to the mid forearm. No crepitus or pain out of proportion to exam. I&D was performed. Blood cultures x3, wound cultures obtained. Sepsis fluid resuscitation initiated. Patient was administered IV Toradol. X-ray reveals soft tissue swelling. Lactic acid within normal limits. WBC 12.0. Sodium 131. Lab work reveals protein corrected calcium of 7.4. Patient was then administered 1 g of calcium gluconate. Vancomycin and Zosyn was administered. EKG pending. Patient is agreeable to admission. Hand consult placed. I spoke with Dr. Hansen who agrees to accept the patient to the medicine service. Please see medicine notes for disposition. Medical Screen Exam Complete: Yes Emergency Medical Condition: Yes Differential Diagnosis Differential Diagnosis: Abscess versus cellulitis versus foreign body versus sepsis versus endocarditis versus Lab Data Result diagrams: 02/02/18 22:55 02/02/18 22:55 Lab Results 02/02/18 02/02/18 02/02/18 Range/Units 22:55 22:55 22:55 WBC 12.0 H (4.0-11.0) th/mm3 RBC 3.30 L (4.50-5.90) mil/mm3 Hgb 10.2 L (13.0-17.0) gm/dL Hct 31.0 L (39.0-51.0) % MCV 93.8 (80.0-100.0) fL MCH 30.8 (27.0-34.0) pg MCHC 32.8 (32.0-36.0) % RDW 14.2 (11.6-17.2) % Plt Count 176 (150-450) th/mm3 MPV 9.0 (7.0-11.0) fL Neut % (Auto) 74.0 H (16.0-70.0) % Lymph % (Auto) 13.7 (9.0-44.0) % [place] % (Auto) 11.4 H (0.0-8.0) % Eos % (Auto) 0.3 (0.0-4.0) % Baso % (Auto) 0.6 (0.0-2.0) % Neut # (Auto) 8.9 H (1.8-7.7) th/mm3 Lymph # (Auto) 1.6 (1.0-4.8) th/mm3 [place] # (Auto) 1.4 H (0.0-0.9) th/mm3 Eos # (Auto) 0.0 (0.0-0.4) th/mm3 Baso # (Auto) 0.1 (0.0-0.2) th/mm3 WBC Differential . Differential Comment Auto diff final Sodium 131 L (136-145) meq/L Potassium 3.7 (3.5-5.1) meq/L Chloride 98 (98-107) meq/L Carbon Dioxide 24.0 (21.0-32.0) meq/L Anion Gap 9 (5-15) meq/L BUN 9 (7-18) mg/dL Creatinine 0.75 (0.60-1.30) mg/dL Estimated GFR Greater than 89 (>89) mL/min Random Glucose 110 H (74-106) mg/dL Lactic Acid 0.9 (0.4-2.0) mmol/L Calcium 7.2 L* (8.5-10.1) mg/dL Prot Corrected Calcium 7.4 L* (8.5-10.1) mg/dL Magnesium 1.6 (1.5-2.5) mg/dL Total Bilirubin 0.7 (0.2-1.0) mg/dL AST 57 H (15-37) U/L ALT 76 (12-78) U/L Alkaline Phosphatase 62 (45-117) U/L Total Protein 6.7 (6.4-8.2) g/dL Albumin 2.7 L (3.4-5.0) g/dL Imaging Data Radiologist's impression: Hand X-Ray 02/02/18 22:33 CONCLUSION: Diffuse soft tissue swelling. No radiopaque foreign body identified. ECG Data EKG Prior to Arrival: No Attestation: I personally reviewed and interpreted this ECG as follows: (Sinus rhythm at a rate of [address] or T wave changes.) Discharge Plan Discharge Disposition Patient Disposition: 30 Still Patient Discharge Details Diagnosis: Sepsis, Cellulitis, Active intravenous drug use Physicians Team ED Provider: Fariha Bae ED Midlevel Provider: Winsome Mcbride Primary Care Provider: Primary Care Sylvia Huston Attending Provider: Aishwarya Hansen Other Providers: Thomas Armstrong Discharge Interventions Interventions: Vital Signs Last Done: 02/02/18 23:30 Status ED Status: Admitted Patient
[2018-02-02 23:25] LABS: Baso # (Auto) 0.1 th/mm3 (0.0-0.2); Baso % (Auto) 0.6 % (0.0-2.0); Eos % (Auto) 0.3 % (0.0-4.0); Hemoglobin 10.2 gm/dL (13.0-17.0); Lymph # (Auto) 1.6 th/mm3 (1.0-4.8); Lymph % (Auto) 13.7 % (9.0-44.0); Mean Corpuscular HGB Conc 32.8 % (32.0-36.0); Mean Corpuscular Hemoglobin 30.8 pg (27.0-34.0); Mean Corpuscular Volume 93.8 fL (80.0-100.0); Mono # (Auto) 1.4 th/mm3 (0.0-0.9); Mono % (Auto) 11.4 % (0.0-8.0); Neut # (Auto) 8.9 th/mm3 (1.8-7.7); Platelet Count 176 th/mm3 (150-450); Red Cell Distribution Width 14.2 % (11.6-17.2)
[2018-02-02 23:53] LABS: Alanine Aminotransferase 76 U/L (12-78); Albumin 2.7 g/dL (3.4-5.0); Alkaline Phosphatase 62 U/L (45-117); Anion Gap 9 meq/L (5-15); Aspartate Aminotransferase 57 U/L (15-37); Blood Urea Nitrogen 9 mg/dL (7-18); Calcium 7.2 mg/dL (8.5-10.1); Chloride 98 meq/L (98-107); Glomerular Filtration Rate Greater Than 89 mL/min (>89); Glucose,Random 110 mg/dL (74-106); Magnesium 1.6 mg/dL (1.5-2.5); Potassium 3.7 meq/L (3.5-5.1); Sodium 131 meq/L (136-145); Total Protein 6.7 g/dL (6.4-8.2)
[2018-02-03] MEDS ORDERED: Calcium Gluconate Inj 1 GM in Sodium Chlor 0.9% Inj 100 ML IV.SIG ONE (00:10)
[2018-02-03] MEDS ORDERED: Bisacodyl 10 MG Supp RECTAL PRN (02:59)
[2018-02-03] MEDS ORDERED: Acetaminophen 325 MG Tablet PO PRN (02:59)
[2018-02-03] MEDS: Sod Chloride 0.9% Inj 1,000 ML IV.CONT SCH ×3 (04:00→14:46)
[2018-02-03 07:06] LABS: Baso # (Auto) 0.1 th/mm3 (0.0-0.2); Baso % (Auto) 0.7 % (0.0-2.0); Eos # (Auto) 0.4 th/mm3 (0.0-0.4); Eos % (Auto) 4.2 % (0.0-4.0); Hematocrit 28.7 % (39.0-51.0); Hemoglobin 9.6 gm/dL (13.0-17.0); Lymph # (Auto) 1.9 th/mm3 (1.0-4.8); Lymph % (Auto) 21.9 % (9.0-44.0); Mean Corpuscular HGB Conc 33.5 % (32.0-36.0); Mean Corpuscular Hemoglobin 31.5 pg (27.0-34.0); Mean Corpuscular Volume 94.2 fL (80.0-100.0); Mono # (Auto) 1.2 th/mm3 (0.0-0.9); Mono % (Auto) 14.5 % (0.0-8.0); Neut % (Auto) 58.7 % (16.0-70.0); Platelet Count 138 th/mm3 (150-450); Red Blood Count 3.05 mil/mm3 (4.50-5.90); Red Cell Distribution Width 14.1 % (11.6-17.2); White Blood Count 8.5 th/mm3 (4.0-11.0)
[2018-02-03] MEDS ORDERED: Sod Chloride 0.9% Inj 1,000 ML IV.SIG ONE (13:15)
[2018-02-03] MEDS: Ketorolac Inj 30 MG/ML (IVP) Vial IV.PUSH PRN ×2 (13:27→20:40)
--- NOTE | 2018-02-03 14:26 | P.CON ---
History of Present Illness Service: Hand surgery Consult date: 02/03/18 Primary Care Provider: Sylvia Primary Care Physician Chief Complaint: Left dorsal first webspace abscess and cellulitis History of Present Illness: 62-year-old [id number] male with history of IV drug abuse/hepatitis C, who presents with a 2-day history of worsening pain/swelling/erythema of his left dorsal first webspace. Patient reports that he has been injecting heroin in the area, last time being 2 days ago. He endorses normal sensation to the fingertips. He has no pain volarly. Patient reports that he was admitted to the emergency department last night, where the emergency department team performed an I&D of the abscess, with expression of significant purulence. Since then patient reports that his symptoms have rapidly improved and he currently feels significantly better. He endorses only mild pain to the area. Patient currently on vancomycin Zosyn Except as noted in the HPI review of systems negative to presenting complaint Past medical history/past surgical history Schizophrenia (Acute) Hepatitis C (Acute) IVDU (intravenous drug user) (Acute) Hx of inguinal hernia surgery (Acute) Social history Positive cigarettes/IV heroin Family history noncontributory to presenting complaint Medication list reviewed [facility] - History History Provided By: Patient - Medical History Medical History: Medical History (Last Reviewed 02/02/18 @ 23:11 by SERGE Haq) Schizophrenia (Acute) Hepatitis C (Acute) IVDU (intravenous drug user) - Surgical History Surgical History: Surgical History (Last Reviewed 02/02/18 @ 23:11 by SERGE Haq) Hx of inguinal hernia surgery (Acute) - Tobacco History Second Hand Smoke Exposure: Yes Tobacco Use In Past 30 Days: Yes Smoking Status: Heavy tobacco smoker Tobacco Type: Cigarettes - Alcohol History How Often Do You Have a Drink Containing Alcohol: Never - Substance Use History Substance History: Active Abuse - Substance Use Type Heroin Status: Active Route Used: Intravenously Reason for Use: Feels Good - Travel History Recent Travel in the [place] Within the Last 8 Weeks: No Recent Travel Out of the Country Within the Last 8 Weeks: No - Immunization History Tetanus Immunization: Unsure Medications and Allergies Active Medications: Active Medications Acetaminophen (Tylenol) 650 mg PO Q4H PRN PRN Reason: Temp > 100.4 Al Hydroxide/Mg Hydroxide (Milk Of Magnesia Liq) 30 ml PO Q12H PRN PRN Reason: Mild Constipation Bisacodyl (Dulcolax Supp) 10 mg RECTAL DAILY PRN PRN Reason: SEVERE CONSITIPATION Sodium Chloride (Ns Inj) 1,000 mls @ 100 mls/hr IV.CONT .Q10H GELACIO Last Admin: 02/03/18 04:00 Dose: 100 mls/hr Ketorolac Tromethamine (Toradol Inj) 30 mg IV.PUSH Q6H PRN PRN Reason: Acute Pain 1-5 Last Admin: 02/03/18 13:27 Dose: 30 mg Lactulose (Lactulose Liq) 30 ml PO DAILY PRN PRN Reason: SEVERE CONSITIPATION Ondansetron HCl (Zofran Inj) 4 mg IV.PUSH Q6H PRN PRN Reason: NAUSEA OR VOMITING Last Admin: 02/03/18 13:26 Dose: 4 mg Sennosides (Senokot) 17.2 mg PO Q12H PRN PRN Reason: Moderate Constipation Allergies Allergy/AdvReac Type Severity Reaction Status Date / Time aspirin Allergy Severe BLEEDING Verified 12/11/17 13:18 ULCERS clonazepam Allergy Severe Hallucinati Verified 12/11/17 13:18 ons iodine Allergy Severe Rash Verified 12/11/17 13:18 paroxetine Allergy Severe Rash Verified 12/11/17 13:18 potassium iodide Allergy Severe Rash Verified 12/11/17 13:18 povidone-iodine Allergy Severe Rash Verified 12/11/17 13:18 sodium iodide Allergy Severe Rash Verified 12/11/17 13:18 sodium iodide Allergy Severe Rash Verified 12/11/17 13:18 ziprasidone Allergy Severe TONGUE Verified 12/11/17 13:18 SWELLING Home Medications Medication Instructions Recorded Confirmed Type No Known Home Medications 02/02/18 02/02/18 History Physical Exam Vital signs: Vital Signs 02/02/18 22:20 02/02/18 23:30 02/03/18 03:31 Temperature 102.7 F H 97.9 F Pulse Rate 115 H 89 60 Respiratory Rate 22 16 20 Blood Pressure 149/71 H 124/78 91/56 L Pulse Oximetry 94 L 98 96 02/03/18 08:00 02/03/18 11:47 Temperature 98.0 F 98.6 F Pulse Rate 59 L 61 Respiratory Rate 16 16 Blood Pressure 83/53 L 83/52 L Pulse Oximetry 97 97 Intake & Output 02/02/18 02/03/18 02/03/18 18:59 06:59 18:59 Intake Total 2460 / 2460 Balance 2460 / 2460 Weight 61.235 kg Intake: IV 246 / 2460 Calcium Gluconate Inj 1 GM In 110 / 110 NS Inj 100 ML @ 110 mls/hr IV. SIG ONCE ONE Rx#:[id number] Zosyn 4.5 GM Premix 4.5 gm In 100 / 100 100 ml @ 200 mls/hr IV.SIG STAT STA Rx#:[id number] NS Inj 2,000 ML @ Wide Open IV. 1999 SIG BOLUS ONE Rx#:[id number] Vancomycin Inj 1,000 MG In NS 250 / 250 Inj 250 ML @ 250 mls/hr IV.SIG STAT STA Rx#:[id number] Other: # Voids 0 Date of Last Bowel Movement 02/03/18 Narrative: No apparent anxiety moist mucous membranes PERRLA skin without rash respirations nonlabored moves all 4 extremities to command digits warm well perfused Left upper extremity Left dorsal radial hand/wrist with dull blanching erythema Mildly tender Dorsal first webspace incision from emergency department I&D closed, though do not appreciate underlying fluctuance Patient able to fully open his hands with minimal pain With patient's permission, previous incision was explored gently with a Q-tip The extent of the abscess cavity was easily appreciated at roughly 1.5 cm in diameter, though no further purulence was expressed Sensation intact light touch distally new All digits warm well perfused with good cap refill Results - Labs CBC & Chem 7: 02/03/18 06:25 02/02/18 22:55 Labs: Laboratory Results - last 24 hr 02/02/18 02/02/18 02/02/18 22:55 22:55 22:55 WBC 12.0 H RBC 3.30 L Hgb 10.2 L Hct 31.0 L MCV 93.8 MCH 30.8 MCHC 32.8 RDW 14.2 Plt Count 176 MPV 9.0 Neut % (Auto) 74.0 H Lymph % (Auto) 13.7 [place] % (Auto) 11.4 H Eos % (Auto) 0.3 Baso % (Auto) 0.6 Neut # (Auto) 8.9 H Lymph # (Auto) 1.6 [place] # (Auto) 1.4 H Eos # (Auto) 0.0 Baso # (Auto) 0.1 WBC Differential . Differential Comment Auto diff final Sodium 131 L Potassium 3.7 Chloride 98 Carbon Dioxide 24.0 Anion Gap 9 BUN 9 Creatinine 0.75 Estimated GFR Greater than 89 Random Glucose 110 H Lactic Acid 0.9 Calcium 7.2 L* Prot Corrected Calcium 7.4 L* Magnesium 1.6 Total Bilirubin 0.7 AST 57 H ALT 76 Alkaline Phosphatase 62 Total Protein 6.7 Albumin 2.7 L 02/03/18 06:25 WBC 8.5 RBC 3.05 L Hgb 9.6 L Hct 28.7 L MCV 94.2 MCH 31.5 MCHC 33.5 RDW 14.1 Plt Count 138 L MPV 9.0 Neut % (Auto) 58.7 Lymph % (Auto) 21.9 [place] % (Auto) 14.5 H Eos % (Auto) 4.2 H Baso % (Auto) 0.7 Neut # (Auto) 5.0 Lymph # (Auto) 1.9 [place] # (Auto) 1.2 H Eos # (Auto) 0.4 Baso # (Auto) 0.1 WBC Differential . Differential Comment Auto diff final Sodium Potassium Chloride Carbon Dioxide Anion Gap BUN Creatinine Estimated GFR Random Glucose Lactic Acid Calcium Prot Corrected Calcium Magnesium Total Bilirubin AST ALT Alkaline Phosphatase Total Protein Albumin - Imaging Impressions Hand X-Ray 02/02/18 22:33 CONCLUSION: Diffuse soft tissue swelling. No radiopaque foreign body identified. Assessment and Plan - Assessment (1) Abscess of hand, left Code(s): L02.512 - Cutaneous abscess of left hand Status: Acute (2) Cellulitis Code(s): L03.90 - Cellulitis, unspecified Status: Acute - Plan 62-year-old male with left dorsal hand/first webspace abscess/cellulitis, status post ED I&D overnight, on IV antibiotics, steadily improving Previous abscess cavity explored bluntly with a Q-tip, and no further purulence expressed Consider IV antibiotics until tomorrow, then DC per primary team Please call with questions (2) Cellulitis Qualifiers: Site of cellulitis: extremity Site of cellulitis of extremity: upper extremity Laterality: left Qualified Code(s): L03.114 - Cellulitis of left upper limb
--- NOTE | 2018-02-03 15:22 | ECG ---
Date Performed: 02/03/2018 Time Performed: 00:49:07 PTAGE: 62 years EKG: Sinus rhythm MARKED LEFT AXIS DEVIATION ABNORMAL ECG Mild peaking of the T-waves, similar to prior tracing. Canno t exclude hyperkaliemia or ischemia, but no change from prior tracing. PREVIOUS TRACING : 12/11/2017 13.32 DOCTOR: Eugenio Gordon Interpretating Date/Time 02/03/2018 15:21:02
--- NOTE | 2018-02-03 15:29 | P.HPIM ---
History of Present Illness Primary Care Physician: No Primary Care Physician History of Present Illness: 62 YO right hand dominant male with PMH of IVDU presented to the ED with 2 day h/o lt hand swelling and pain and injecting heroin 2 days prior to admission. He did not have any limitation in hand movements. No fever or chills. ROS was negative. On presentation patient He was found to have an abscess, I&D was done in ED and sample submitted for culture. Patient was started on IV Vanc/Zoysn and admitted to the medicine for further management. Diagnosis (1) Abscess of hand, left: (2) Cellulitis: Inpatient Certification Inpatient Certification: I certify that the inpatient services were ordered in accordance with Medicare regulations governing the order. This includes certification that hospital inpatient services are reasonable and necessary and in the case of services not specified as inpatient-only under 42 CFR 419.22(n), that they are appropriately provided as inpatient services in accordance to with the 2-midnight benchmark under 43 CFR 412.3(e) Estimated Total Length of Stay (Days): 2 Plans for Post Hospital Care: Home [facility], [facility] Medical History Medical History Schizophrenia (Acute) Hepatitis C (Acute) IVDU (intravenous drug user) (Acute) Surgical History Surgical History Hx of inguinal hernia surgery (Acute) Social History Social History Substance History: Active Abuse Second Hand Smoke Exposure: Yes Smoking Status: Heavy tobacco smoker Tobacco Type: Cigarettes How Often Do You Have a Drink Containing Alcohol: Never Recent Travel in [facility] [place] within the Last 8 Weeks: No Recent Out of Country Travel within the Last 8 Weeks: No Substance Abuse Detail Heroin: Substance Use Status: Active Route Used Substance Abuse: Intravenously Reason for Use: Feels Good Immunization History Tetanus Immunization: Unsure Medications and Allergies Allergies Allergy/AdvReac Type Severity Reaction Status Date / Time aspirin Allergy Severe BLEEDING Verified 12/11/17 13:18 ULCERS clonazepam Allergy Severe Hallucinati Verified 12/11/17 13:18 ons iodine Allergy Severe Rash Verified 12/11/17 13:18 paroxetine Allergy Severe Rash Verified 12/11/17 13:18 potassium iodide Allergy Severe Rash Verified 12/11/17 13:18 povidone-iodine Allergy Severe Rash Verified 12/11/17 13:18 sodium iodide Allergy Severe Rash Verified 12/11/17 13:18 sodium iodide Allergy Severe Rash Verified 12/11/17 13:18 ziprasidone Allergy Severe TONGUE Verified 12/11/17 13:18 SWELLING Home Medications Medication Instructions Recorded Confirmed Type No Known Home Medications 02/02/18 02/02/18 History Active Medications: Active Medications Acetaminophen (Tylenol) 650 mg PO Q4H PRN PRN Reason: Temp > 100.4 Al Hydroxide/Mg Hydroxide (Milk Of Magnesia Liq) 30 ml PO Q12H PRN PRN Reason: Mild Constipation Bisacodyl (Dulcolax Supp) 10 mg RECTAL DAILY PRN PRN Reason: SEVERE CONSITIPATION Sodium Chloride (Ns Inj) 1,000 mls @ 100 mls/hr IV.CONT .Q10H GELACIO Last Admin: 02/03/18 14:46 Dose: 100 mls/hr Ketorolac Tromethamine (Toradol Inj) 30 mg IV.PUSH Q6H PRN PRN Reason: Acute Pain 1-5 Last Admin: 02/03/18 13:27 Dose: 30 mg Lactulose (Lactulose Liq) 30 ml PO DAILY PRN PRN Reason: SEVERE CONSITIPATION Ondansetron HCl (Zofran Inj) 4 mg IV.PUSH Q6H PRN PRN Reason: NAUSEA OR VOMITING Last Admin: 02/03/18 13:26 Dose: 4 mg Sennosides (Senokot) 17.2 mg PO Q12H PRN PRN Reason: Moderate Constipation Physical Exam Vital signs: Last Vital Signs Temp 98.6 F 02/03/18 11:47 Pulse 61 02/03/18 11:47 Resp 16 02/03/18 11:47 BP 83/52 L 02/03/18 11:47 Pulse Ox 97 02/03/18 11:47 Intake & Output 02/01/18 02/02/18 02/03/18 02/04/18 06:59 06:59 06:59 06:59 Intake Total 2460 / 2460 900 / 900 Balance 2460 / 2460 900 / 900 Weight 61.235 kg Narrative: GENERAL: middle aged man, not in distress. HEENT:not pale,anicteric CARDIOVASCULAR: Regular rate and rhythm without murmurs, gallops, or rubs. RESPIRATORY: Clear to auscultation. Breath sounds equal bilaterally. No wheezes , rales, or rhonchi. GASTROINTESTINAL: Abdomen soft, non-tender, nondistended. Normal active bowel sounds MUSCULOSKELETAL: Extremities without clubbing, cyanosis, or edema. Lt hand and forearm swelling, erythema+,non tender. no active discharge. dressing in situ. NEURO: Alert & Oriented x4 to person, place, time, situation. Moves all ext x4 Results Labs CBC & Chem 7: 02/03/18 06:25 02/02/18 22:55 Imaging Impressions Hand X-Ray 02/02/18 22:33 CONCLUSION: Diffuse soft tissue swelling. No radiopaque foreign body identified. Caprini VTE Risk Assessment Caprini VTE Risk Assessment: No/Low Risk (score <= 1) Caprini Risk Assessment Model: Point Value = 1 Point Value = 2 Point Value = 3 Point Value = 5 Age 41-60 Minor surgery BMI > 25 kg/m2 Swollen legs Varicose veins or History of unexplained or recurrent spontaneous Oral contraceptives or hormone replacement Sepsis (< 1 month) Serious lung disease, including pneumonia (< 1 month) Abnormal pulmonary function Acute myocardial infarction Congestive heart failure (< 1 month) History of inflammatory bowel disease Medical patient at bed rest Age 61-74 Arthroscopic surgery Major open surgery (> 45 min) Laparoscopic surgery (> 45 min) Malignancy Confined to bed (> 72 hours) Immobilizing plaster cast Central venous access Age >= 75 History of VTE Family history of VTE Factor V Leiden Prothrombin [id number] Lupus anticoagulant Anticardiolipin antibodies Elevated serum homocysteine Heparin-induced thrombocytopenia Other congenital or acquired thrombophilia Stroke (< 1 month) Elective arthroplasty Hip, pelvis, or leg fracture Acute spinal cord injury (< 1 month) Prophylaxis Regimen: Total Risk Factor Score Risk Level Prophylaxis Regimen 0-1 Low Early ambulation 2 Moderate Order ONE of the following: *Sequential Compression Device (SCD) *Heparin 5000 units SQ BID 3-4 Higher Order ONE of the following medications: *Heparin 5000 units SQ TID *Enoxaparin/Lovenox 40 mg SQ daily (WT < 150 kg, CrCl > 30 mL/min) *Enoxaparin/Lovenox 30 mg SQ daily (WT < 150 kg, CrCl > 10-29 mL/min) *Enoxaparin/Lovenox 30 mg SQ BID (WT < 150 kg, CrCl > 30 mL/min) AND/OR *Sequential Compression Device (SCD) 5 or more Highest Order ONE of the following medications: *Heparin 5000 units SQ TID (Preferred with Epidurals) *Enoxaparin/Lovenox 40 mg SQ daily (WT < 150 kg, CrCl > 30 mL/min) *Enoxaparin/Lovenox 30 mg SQ daily (WT < 150 kg, CrCl > 10-29 mL/min) *Enoxaparin/Lovenox 30 mg SQ BID (WT < 150 kg, CrCl > 30 mL/min) AND *Sequential Compression Device (SCD) Assessment and Plan (1) Abscess of hand, left: Code(s): L02.512 - Cutaneous abscess of left hand Status: Acute (2) Cellulitis: Code(s): L03.90 - Cellulitis, unspecified Status: Acute Plan 62 yo M with h/o IVDU who presented with left hand swelling and pain after injecting heroin in the same hand, he was found to have sepsis and an abscess which has been drained. He is on IV Vanc and Zosyn. wound gram stain growing gram positive cocci in chains, Cultures are pending. blood cultures negative to date. IV Toradol for pain control. Elevate LUE IV heroine abuse--patient has been trying to quit, he is trying to get into the suboxone program but says he has not been successful so far. monitor for withdrawal symptoms. He has been counseled to quit smoking. offer nicotine patch. H&P: Quality VTE Deep Vein Thrombosis/Pulmonary Embolism Present on Admission: No _ (1) Cellulitis Qualifiers: Laterality: left Site of cellulitis: extremity Site of cellulitis of extremity: upper extremity Site of cellulitis of trunk: Qualified Code(s): L03.114 - Cellulitis of left upper limb
[2018-02-03] MEDS ORDERED: Vancomycin Consult Pharmacy OTHER PRN (20:07)
[2018-02-03] MEDS: Piperacil/Tazo 3.375 GM Premix 50 ML IV.SIG SCH (20:41)
[2018-02-03] MEDS: Vancomycin Inj 1,000 MG in Sodium Chlor 0.9% Inj 250 ML IV.SIG SCH (21:32)
[2018-02-04] MEDS: Sod Chloride 0.9% Inj 1,000 ML IV.CONT SCH ×4 (02:03→19:15)
[2018-02-04] MEDS: Piperacil/Tazo 3.375 GM Premix 50 ML IV.SIG SCH ×4 (02:04→21:33)
[2018-02-04] MEDS: Vancomycin Inj 1,000 MG in Sodium Chlor 0.9% Inj 250 ML IV.SIG SCH ×2 (08:16→23:21)
[2018-02-04 09:58] LABS: Anion Gap 8 meq/L (5-15); Blood Urea Nitrogen 12 mg/dL (7-18); Calcium 7.5 mg/dL (8.5-10.1); Carbon Dioxide 23.2 meq/L (21.0-32.0); Chloride 109 meq/L (98-107); Glomerular Filtration Rate Greater Than 89 mL/min (>89); Glucose,Random 97 mg/dL (74-106); Potassium 4.4 meq/L (3.5-5.1)
[2018-02-04 10:00] LABS: Sodium 140 meq/L (136-145)
[2018-02-04] MEDS: Ketorolac Inj 30 MG/ML (IVP) Vial IV.PUSH PRN ×2 (11:47→18:38)
--- NOTE | 2018-02-04 13:27 | P.PNIM ---
Subjective Interval history: no new complaints. Hand swelling and redness improving. Physical Exam Vital signs: Last Vital Signs Temp 98.4 F 02/04/18 12:11 Pulse 70 02/04/18 12:11 Resp 16 02/04/18 12:11 BP 116/70 02/04/18 12:11 Pulse Ox 100 02/04/18 12:11 Intake & Output 02/02/18 02/03/18 02/04/18 02/05/18 06:59 06:59 06:59 06:59 Intake Total 2460 / 2460 3250 / 3250 1300 / 1300 Balance 2460 / 2460 3250 / 3250 1300 / 1300 Weight 61.235 kg Narrative: GENERAL: middle aged man, not in distress. HEENT:not pale,anicteric CARDIOVASCULAR: Regular rate and rhythm without murmurs, gallops, or rubs. RESPIRATORY: Clear to auscultation. Breath sounds equal bilaterally. No wheezes , rales, or rhonchi. GASTROINTESTINAL: Abdomen soft, non-tender, nondistended. Normal active bowel sounds MUSCULOSKELETAL: Extremities without clubbing, cyanosis, or edema. Lt hand and forearm swelling-less today, erythema+,non tender. no discharge from wound. NEURO: Alert & Oriented x4 to person, place, time, situation. Moves all ext x4 Results Labs CBC & Chem 7: 02/03/18 06:25 02/04/18 09:07 Labs: Microbiology 02/02/18 22:55 Abscess - Hand Gram Stain - Final 02/02/18 22:55 Abscess - Hand Wound Culture - Preliminary Group A beta Strep 02/02/18 23:10 Blood - Line Aerobic Blood Culture - Preliminary No growth in 2 days 02/02/18 23:10 Blood - Line Anaerobic Blood Culture - Preliminary No growth in 2 days 02/02/18 22:50 Blood - Peripheral Aerobic Blood Culture - Preliminary No growth in 2 days 02/02/18 22:50 Blood - Peripheral Anaerobic Blood Culture - Preliminary No growth in 2 days 02/02/18 22:55 Blood - Peripheral Aerobic Blood Culture - Preliminary No growth in 2 days 02/02/18 22:55 Blood - Peripheral Anaerobic Blood Culture - Preliminary No growth in 2 days Assessment and Plan (1) Abscess of hand, left: Code(s): L02.512 - Cutaneous abscess of left hand Status: Acute (2) Cellulitis: Code(s): L03.90 - Cellulitis, unspecified Status: Acute Plan 62 yo M with h/o IVDU who presented with left hand swelling and pain after injecting heroin in the same hand, he was found to have sepsis and an abscess which has been drained. wound Cultures grew Group A beta hemolytic strep.He is on IV Vanc and Zosyn-- will de-escalate to oral Augmentin for another 1 week. blood cultures negative to date. IV Toradol for pain control. Elevate LUE IV heroine abuse--patient has been trying to quit, he is trying to get into the suboxone program but says he has not been successful so far. monitor for withdrawal symptoms. He has been counseled to quit smoking. offered nicotine patch. Progress Note: Quality VTE Deep Vein Thrombosis/Pulmonary Embolism Present on Admission: No _ (1) Cellulitis Qualifiers: Laterality: left Site of cellulitis: extremity Site of cellulitis of extremity: upper extremity Site of cellulitis of trunk: Qualified Code(s): L03.114 - Cellulitis of left upper limb
[2018-02-05] MEDS: Ketorolac Inj 30 MG/ML (IVP) Vial IV.PUSH PRN ×2 (00:31→10:15)
[2018-02-05] MEDS: Piperacil/Tazo 3.375 GM Premix 50 ML IV.SIG SCH (03:56)
[2018-02-05] MEDS: Sod Chloride 0.9% Inj 1,000 ML IV.CONT SCH (04:00)
[2018-02-05] MEDS ORDERED: Pharmacy Ordered Lab Info OTHER ONE (08:45)
[2018-02-05] MEDS ORDERED: Sodium Chloride 0.9% 2 ML Flush PRN IV.FLUSH (08:50)
[2018-02-05] MEDS ORDERED: Sodium Chloride 0.9% 2 ML Flush BID IV.FLUSH SCH (09:00)
[2018-02-05] MEDS ORDERED: Amoxicillin/Clavulanate 875/125 MG Tablet PO SCH (09:00)
[2018-02-05 09:24] VITALS: BP 128/82; PULSE 63; RESP 19; TEMP 97.3; O2SAT 99
--- NOTE | 2018-02-05 10:25 | P.DS ---
DS: Providers Date of admission: 02/03/18 00:47 Primary care physician: No Primary Care Physician Consults: 02/03/18 00:24 Consult to Hand Surgery Routine Consulting Provider: Thomas Armstrong Preferred Chief Projectionist:: Thomas Armstrnog Reason for Consultation: abscess left hand *routine Notified:: Service Spoke with:: Janis Date Notified:: 02/03/18 Time Notified:: 00:34 Ordering Provider: YAHAIRA Brief History from admission: 62 YO right hand dominant male with PMH of IVDU presented to the ED with 2 day h/o lt hand swelling and pain and injecting heroin 2 days prior to admission. He did not have any limitation in hand movements. No fever or chills. ROS was negative. On presentation patient He was found to have an abscess, I&D was done in ED and sample submitted for culture. Patient was started on IV Vanc/Zoysn and admitted to the medicine for further management. DS: Diagnosis Discharge Diagnosis (1) Abscess of hand, left: Status: Acute (2) Cellulitis: Status: Acute DS: Summary pateint had continued improvement in wound and was afebrile, cultures were positive for Strep organism and he was transitioned to oral augmenting, and otherwise clinically stable for discharge home and outpatient followup. He was counseled at length re substance abuse cessation and encouraged to follow up with Suboxone clinic, which he agrees to do, he states he will followup, Wound care and signs to return should symptoms worsen were discussed. Status at Discharge Overall status at discharge: patient is back to baseline Time Spent with Patient Total time spent providing and/or coordinating discharge services: Greater than 30 minutes Quality: VTE Deep Vein Thrombosis/Pulmonary Embolism Present on Admission: No Results Labs on day of discharge: Preliminary micro results at discharge 02/02/18 22:55 Wound Culture - Preliminary Abscess - Hand Group A beta Strep gram negative rods 02/02/18 23:10 Aerobic Blood Culture - Preliminary Blood - Line No growth in 2 days Anaerobic Blood Culture - Preliminary No growth in 2 days 02/02/18 22:50 Aerobic Blood Culture - Preliminary Blood - Peripheral No growth in 2 days Anaerobic Blood Culture - Preliminary No growth in 2 days 02/02/18 22:55 Aerobic Blood Culture - Preliminary Blood - Peripheral No growth in 2 days Anaerobic Blood Culture - Preliminary No growth in 2 days Impressions ITS Impressions Hand X-Ray 02/02/18 22:33 CONCLUSION: Diffuse soft tissue swelling. No radiopaque foreign body identified. Discharge Plan Discharge Disposition Patient Disposition: 01 Discharge Home Discharge Condition Condition: Good Discharge Order Discharge Orders: Discharge Order (Routine); Ordered 02/05/18 Ordered By: Judith Chase Physicians Team Primary Care Provider: Primary Care Sylvia Huston Attending Provider: Judith Chase Other Providers: Thomas Armstrong Rxs /Orders / Referrals /Forms Prescriptions: New nicotine 21 mg/24 hr Patch 24 Hour 1 patch Transdermal DAILY Qty: 14 RF: 0 amoxicillin-pot clavulanate 875-125 mg Tablet 1 tab PO Q12HR Qty: 20 RF: 0 No Action No Known Home Medications RF: 0 Referrals: Primary Care Sylvia Huston [Primary Care Provider] - See Instructions ([facility] 2-3 days Your Health Problems: Goals to Promote Your Health: To prevent worsening of your condition To maintain your health at the optimal level Directions to Meet Your Goals: Take your medications as prescribed Follow your dietary instruction Follow activity as directed Keep your appointments as scheduled Take your immunizations and boosters as scheduled If your symptoms worsen call your PCP If no PCP go to Urgent Care or Emergency Room Smoking is dangerous to your health. Avoid second hand smoke. You may reach the 24-hour crisis hotline for domestic abuse at .) Discharge Interventions Interventions: Discharge Planning - Case Management Last Done: 02/03/18 08:45 Status ED Status: Left Department
== END 2018-02-05 12:22 | disposition home or self-care (01) ==
LOC: NEPE 22:18 → NEDA 02-03 00:47 → NEPGCP 02-03 02:16 → N07 02-04 14:18
PROVIDERS: ADMIT Internal Medicine; ATTEND Internal Medicine
DX: F17.210 Nicotine dependence, cigarettes, uncomplicated; L02.512 Cutaneous abscess of left hand; B19.20 Unspecified viral hepatitis C without hepatic coma; A41.9 Sepsis, unspecified organism; L03.114 Cellulitis of left upper limb; B95.0 Streptococcus, group A, as the cause of diseases classified elsewhere; F11.10 Opioid abuse, uncomplicated

== ENCOUNTER 2018-04-29 13:51 | Inpatient (IN) ==
[2018-04-29] MEDS ORDERED: Ketorolac Inj 30 MG/ML (IVP) Vial IV.PUSH ONE (15:19)
[2018-04-29] MEDS ORDERED: Ketamine Inj 50 MG/5 ML Syringe IV.PUSH ONE ×2 (15:26→15:43)
[2018-04-29] MEDS ORDERED: HYDROmorphone PF Inj 2 MG/ML Vial IV.PUSH ONE (15:26)
[2018-04-29] MEDS ORDERED: Ketamine Inj 500 MG/10 ML Vial OTHER STA (15:47)
--- NOTE | 2018-04-29 15:53 | XR ---
EXAM DATE: 04/29/2018 3:50 PM EST AGE/SEX: 62 years / Male INDICATIONS: Fever, fall 3 days ago. CLINICAL DATA: This is the patient's initial encounter. Patient reports that signs and symptoms have been present for 3 days and indicates a pain score of Nonresponsive. MEDICAL/SURGICAL HISTORY: Non-responsive. Non-responsive. COMPARISON: [facility] [place], CHEST 1V SINGLE AP, 12/11/2017. . FINDINGS: 2 portable frontal views of the chest show mild cardiomegaly with left ventricular prominence. No pul monary vascular engorgement seen. No infiltrate or effusion. Old trauma involving posterior right jeremy th rib. This is stable. No acute fracture. Scoliotic curvature. CONCLUSION: Cardiomegaly. No acute abnormality. Electronically signed by: Toñito Sol MD Board Certified Radiologist 04/29/2018 3:52 PM EST
[2018-04-29 15:54] LABS: Baso # (Auto) 0.4 th/mm3 (0.0-0.2); Eos # (Auto) 0.2 th/mm3 (0.0-0.4); Eos % (Auto) 1.7 % (0.0-4.0); Hemoglobin 12.1 gm/dL (13.0-17.0); Lymph # (Auto) 2.5 th/mm3 (1.0-4.8); Lymph % (Auto) 18.1 % (9.0-44.0); Mean Corpuscular HGB Conc 33.5 % (32.0-36.0); Mean Corpuscular Hemoglobin 29.8 pg (27.0-34.0); Mean Corpuscular Volume 88.8 fL (80.0-100.0); Mean Platelet Volume 8.3 fL (7.0-11.0); Mono # (Auto) 1.5 th/mm3 (0.0-0.9); Mono % (Auto) 11.3 % (0.0-8.0); Neut % (Auto) 65.9 % (16.0-70.0); Platelet Count 278 th/mm3 (150-450); Red Blood Count 4.05 mil/mm3 (4.50-5.90); Red Cell Distribution Width 13.6 % (11.6-17.2); White Blood Count 13.6 th/mm3 (4.0-11.0)
[2018-04-29 16:02] LABS: Chloride 104 meq/L (98-107); Sodium 130 meq/L (136-145)
[2018-04-29 16:05] LABS: Calcium 8.1 mg/dL (8.5-10.1)
[2018-04-29 16:06] LABS: Albumin 2.6 g/dL (3.4-5.0); Anion Gap 5 meq/L (5-15); Blood Urea Nitrogen 21 mg/dL (7-18); Glucose,Random 98 mg/dL (74-106)
[2018-04-29 16:09] LABS: Alanine Aminotransferase 62 U/L (12-78); Aspartate Aminotransferase 56 U/L (15-37); Glomerular Filtration Rate Greater Than 89 mL/min (>89)
[2018-04-29 16:10] LABS: Total Protein 7.5 g/dL (6.4-8.2)
[2018-04-29] MEDS ORDERED: Vancomycin Inj 1,250 MG in Sodium Chlor 0.9% Inj 250 ML IV.SIG ONE (16:10)
[2018-04-29 16:12] LABS: Alkaline Phosphatase 81 U/L (45-117)
[2018-04-29 16:13] LABS: Potassium 5.4 meq/L (3.5-5.1)
[2018-04-29] MEDS ORDERED: Sod Chloride 0.9% Inj 1,000 ML IV.SIG SCH (16:15)
--- NOTE | 2018-04-29 16:22 | ED ---
HPI General Chief complaint: Extremity Injury, Upper Stated complaint: S/P Fall 3 days ago R Wrist/Hand Pain Time Seen by Provider: 04/29/18 14:41 Source: patient Mode of arrival: ambulatory Limitations: no limitations History of Present Illness HPI narrative: 62-year-old male presents emerged from complaining of right arm pain. He states he fell on a cinder block. Endorses IV drug use. Records show he was here recently for left hand cellulitis and abscess. Symptoms been worsening the past couple days. Denies fever. No other complaints. Pain is severe, unrelieved with home medications, no other aggravating or relieving factors. Related Data Home Medications Medication Instructions Recorded Confirmed No Known Home Medications 02/02/18 02/02/18 Previous Rx's Medication Instructions Recorded amoxicillin-pot clavulanate 1 tab PO Q12HR #20 tab 02/05/18 nicotine 1 patch TRANSDERMAL DAILY #14 ea 02/05/18 Allergies Allergy/AdvReac Type Severity Reaction Status Date / Time aspirin Allergy Severe BLEEDING Verified 04/29/18 14:15 ULCERS clonazepam Allergy Severe Hallucinati Verified 04/29/18 14:15 ons iodine Allergy Severe Rash Verified 04/29/18 14:15 paroxetine Allergy Severe Rash Verified 04/29/18 14:15 potassium iodide Allergy Severe Rash Verified 04/29/18 14:15 povidone-iodine Allergy Severe Rash Verified 04/29/18 14:15 sodium iodide Allergy Severe Rash Verified 04/29/18 14:15 sodium iodide Allergy Severe Rash Verified 04/29/18 14:15 ziprasidone Allergy Severe TONGUE Verified 04/29/18 14:15 SWELLING Review of Systems ROS: all other systems reviewed are negative [facility] Medical History Medical History Schizophrenia (Acute) Hepatitis C (Acute) IVDU (intravenous drug user) (Acute) Surgical History Surgical History Hx of inguinal hernia surgery (Acute) Social History Social History Substance History: Active Abuse Second Hand Smoke Exposure: Yes Smoking Status: Current every day smoker Tobacco Type: Cigarettes How Often Do You Have a Drink Containing Alcohol: Monthly or less Recent Travel in [facility] [place] within the Last 8 Weeks: No Recent Out of Country Travel within the Last 8 Weeks: No Immunization History Tetanus Immunization Year if Known: 2018 Exam Narrative Exam Narrative: GENERAL: 62-year-old man, moaning, nontoxic. SKIN: Focused skin assessment warm/dry. HEAD: Atraumatic. Normocephalic. EYES: Pupils equal and round. No scleral icterus. No injection or drainage. ENT: No nasal bleeding or discharge. Mucous membranes pink and moist. NECK: Trachea midline. No JVD. CARDIOVASCULAR: Regular rate and rhythm. No murmur appreciated. RESPIRATORY: No accessory muscle use. Clear to auscultation. Breath sounds equal bilaterally. GASTROINTESTINAL: Abdomen soft, non-tender, nondistended. Hepatic and splenic margins not palpable. MUSCULOSKELETAL: Obvious edema and swelling in the right upper extremity. Fluctuance at the base of the hand. Erythema warmth throughout the hand. Swollen to about the mid forearm. NEUROLOGICAL: Awake and alert. No obvious cranial nerve deficits. Motor grossly within normal limits. Normal speech. PSYCHIATRIC: Appropriate mood and affect; insight and judgment normal. Procedures Abscess I/D Abscess 1: Site: upper extremity Side (if applicable): right Sedation/analgesia: other (Ketamine) Technique: incised with #11 blade Amount of fluid expressed (mL): 8 Irrigation: No Packing used?: none Procedural Sedation Indications: incision and drainage of abscess ASA Class: ASA 2 Moderate Systemic Disease Preparation: youth nutritional monitor applied, pulse oximeter, capnometry used, supplemental O2 applied, suction/airway equipment at bedside and IV secured Ketamine: IV Ketamine dose (mg): 150 Patient Tolerated Procedure: well Complications: Respiratory Depression-Repositioning Required Interventions: airway repositioned and assist by BVM Additional Comments: Patient short period of apnea. There is no hypoxia evident. He was briefly assisted with bag valve mask due to the fact that his pulse ox was not immediately reading. He had a little bit of stiffening but no hypoxia. Course Initial Documented Vital Signs Temperature 98.2 F 04/29/18 14:13 Pulse Rate 97 H 04/29/18 14:13 Respiratory Rate 16 04/29/18 14:13 Blood Pressure 101/67 04/29/18 14:13 Pulse Oximetry 98 04/29/18 14:13 Last Documented Vital Signs Temperature 97.4 F L 04/29/18 20:00 Pulse Rate 84 04/29/18 20:00 Respiratory Rate 12 04/29/18 21:30 Blood Pressure 114/81 04/29/18 20:00 Pulse Oximetry 99 04/29/18 20:00 Sign Out Sign Out Data: Patient Sign Out occurred on 04/29/18 at 16:58. Patient's care was discussed, and care was transferred from Dawit Haynes MD to Lisbeth Locke DO. Sign Out Comment: Soft tissue infection right hand, likely IV drug use related, abscess drained at the bedside, labs pending, x-ray pending, will likely need admission. Last updated by Dawit Haynes MD at 04/29/18 16:23 Post-Handoff Eval: 62yo M with IVDA and right arm infection. Vital signs reviewed and pt is tachycardic and tachypneic. Labs reviewed, leukocytosis at 13.6. H/H 12.1/ 36.0 which is at baseline. Lactic acid normal at 1.3. Mild hyponatremia at 130. K is 5.4 but slightly hemolyzed. BUN/creatinine ratio is 21/0.58, pt likely dehydrated. I&D was completed by previous team under procedural sedation. Pt given vancomycin IV. Xray right hand showed prominent dorsal soft tissue swelling. No fracture. CXR showed no acute abnormality. Pt given IVF and HR improved after IVF. Pt is awake and alert and agrees to admission. Discussed with Dr. Carbajal and accepted to his service for sepsis secondary to right arm cellulitis. Medical Decision Making MDM Narrative Medical decision making narrative: IV drug use related right hand cellulitis and abscess. Sedation with ketamine and drained at the bedside. Brief apnea. Patient tolerated otherwise well. Bandage applied. Labs sent. IV antibiotics ordered. X-ray ordered. Will need admission. Medical Screen Exam Complete: Yes Emergency Medical Condition: Yes Lab Data Result diagrams: 04/29/18 15:35 04/29/18 15:35 Lab Results 04/29/18 04/29/18 04/29/18 Range/Units 15:35 15:35 15:35 CBC w Diff Auto diff final WBC 13.6 H (4.0-11.0) th/mm3 RBC 4.05 L (4.50-5.90) mil/mm3 Hgb 12.1 L (13.0-17.0) gm/dL Hct 36.0 L (39.0-51.0) % MCV 88.8 (80.0-100.0) fL MCH 29.8 (27.0-34.0) pg MCHC 33.5 (32.0-36.0) % RDW 13.6 (11.6-17.2) % Plt Count 278 (150-450) th/mm3 MPV 8.3 (7.0-11.0) fL Neut % (Auto) 65.9 (16.0-70.0) % Lymph % (Auto) 18.1 (9.0-44.0) % Craig % (Auto) 11.3 H (0.0-8.0) % Eos % (Auto) 1.7 (0.0-4.0) % Baso % (Auto) 3.0 H (0.0-2.0) % Neut # (Auto) 9.0 H (1.8-7.7) th/mm3 Lymph # (Auto) 2.5 (1.0-4.8) th/mm3 Craig # (Auto) 1.5 H (0.0-0.9) th/mm3 Eos # (Auto) 0.2 (0.0-0.4) th/mm3 Baso # (Auto) 0.4 H (0.0-0.2) th/mm3 WBC Differential . Differential Comment . Sodium 130 L (136-145) meq/L Potassium 5.4 H (3.5-5.1) meq/L Chloride 104 (98-107) meq/L Carbon Dioxide 21.0 (21.0-32.0) meq/L Anion Gap 5 (5-15) meq/L BUN 21 H (7-18) mg/dL Creatinine 0.58 L (0.60-1.30) mg/dL Estimated GFR Greater than 89 (>89) mL/min Random Glucose 98 (74-106) mg/dL Lactic Acid 1.3 (0.4-2.0) mmol/L Calcium 8.1 L (8.5-10.1) mg/dL Magnesium 2.0 (1.5-2.5) mg/dL Total Bilirubin 0.4 (0.2-1.0) mg/dL AST 56 H (15-37) U/L ALT 62 (12-78) U/L Alkaline Phosphatase 81 (45-117) U/L Total Protein 7.5 (6.4-8.2) g/dL Albumin 2.6 L (3.4-5.0) g/dL Imaging Data Radiologist's impression: Chest X-Ray 04/29/18 15:16 CONCLUSION: Cardiomegaly. No acute abnormality. Hand X-Ray 04/29/18 16:10 CONCLUSION: Prominent dorsal soft tissue swelling. The osseous structures appear radiographically intact. ECG Data EKG Prior to Arrival: No Attestation: I personally reviewed and interpreted this ECG as follows: Interpretation: NSR 98bpm. LAD. No significant ST elevation or depression. Discharge Plan Discharge Disposition Patient Disposition: ED Admit(ED Internal Use Only) Discharge Order Discharge Orders: ED Use Only Admit Order (Routine); Ordered 04/29/18 Ordered By: Lisbeth Locke Discharge Details Diagnosis: Sepsis Physicians Team ED Provider: Lisbeth Locke Primary Care Provider: Primary Care Lauriei,Sylvia Attending Provider: Morales Carbajal Status ED Status: Left Department Discharge Information Discharge Date/Time: 04/29/18 18:40
--- NOTE | 2018-04-29 16:35 | XR ---
EXAM DATE: 04/29/2018 4:30 PM EST AGE/SEX: 62 years / Male INDICATIONS: Post INP. CLINICAL DATA: This is the patient's initial encounter. Patient reports that signs and symptoms have been present for 1 day and indicates a pain score of Nonresponsive. MEDICAL/SURGICAL HISTORY: Non-responsive. Non-responsive. COMPARISON: [facility] [place], HAND LIMITED LEFT 2V, 02/02/2018. . FINDINGS: The osseous structures are in normal alignment and appear grossly intact. There is prominent soft tis keenan swelling about the hand, more prominent on the dorsal side than on the palmar side. No radiopaque foreign bodies. CONCLUSION: Prominent dorsal soft tissue swelling. The osseous structures appear radiographically intact. Electronically signed by: Toñito Anthony MD Board Certified Radiologist 04/29/2018 4:34 PM EST
[2018-04-29] MEDS ORDERED: Acetaminophen 325 MG Tablet PO PRN (17:14)
[2018-04-29] MEDS ORDERED: Vancomycin Inj 1,000 MG in Sodium Chlor 0.9% Inj 250 ML IV.SIG SCH (17:18)
--- NOTE | 2018-04-29 17:38 | P.HPIM ---
History of Present Illness Primary Care Physician: No Primary Care Physician Chief Complaint: Right arm abscess and cellulitis History of Present Illness: Mr. Ugalde is a 62-year-old male. He has a past medical history of IV drug abuse. He admits to still using IV drugs, specifically opioids and heroin. He comes in the hospital secondary to a right arm infection. He has noticed this infection over the past 2 days. He says it is been progressive. He is been getting chills as an outpatient. Sepsis criteria is present with leukocytosis, tachycardia, tachypnea, and known infection source at time of admit. He denies any other past medical history. He denies any cardiac disease. No chest pain reported. He denies lung disease. Inpatient Certification Inpatient Certification: I certify that the inpatient services were ordered in accordance with Medicare regulations governing the order. This includes certification that hospital inpatient services are reasonable and necessary and in the case of services not specified as inpatient-only under 42 CFR 419.22(n), that they are appropriately provided as inpatient services in accordance to with the 2-midnight benchmark under 43 CFR 412.3(e) Estimated Total Length of Stay (Days): 3 Plans for Post Hospital Care: Home Review of Systems Constitutional: No fevers, no chills no night sweats, no fatigue, no weakness Eyes: No eye pain, no blurry vision, no loss of vision ENT: No sore throat, no ear pain, no rhinorrhea Cardiovascular: No chest pain, no tachycardia, no palpitations, no syncope Respiratory: No wheezing, no cough, no shortness of breath Gastrointestinal: No abdominal pain, no black tarry stools, no bright red blood per rectum, no vomiting, no diarrhea Musculoskeletal: No joint pain, no muscle cramps, no stiffness, right arm infection Integumentary: No rash, no ulcers, no drainage Neurologic: No sensory loss, no loss of motor function, no dizziness Psychiatric: No behavioral changes, no hallucinations, no suicidal ideations [facility] Medical History Medical History Schizophrenia (Acute) Hepatitis C (Acute) IVDU (intravenous drug user) (Acute) Surgical History Surgical History Hx of inguinal hernia surgery (Acute) Family History Family History Other Osteoarthritis Social History Social History Substance History: Active Abuse Second Hand Smoke Exposure: Yes Smoking Status: Current every day smoker Tobacco Type: Cigarettes How Often Do You Have a Drink Containing Alcohol: Monthly or less Recent Travel in [place] within the Last 8 Weeks: No Recent Out of Country Travel within the Last 8 Weeks: No Substance Abuse Detail Methamphetamine: Substance Use Status: Active Route Used Substance Abuse: Intravenously Substance Frequency: "MAYBE ONCE A WEEK" Reason for Use: Feels Good and Get High Heroin: Substance Use Status: Active Route Used Substance Abuse: Intravenously Reason for Use: Feels Good and Get High Immunization History Tetanus Immunization: <5 Years Tetanus Immunization Year if Known: 2018 Medications and Allergies Allergies Allergy/AdvReac Type Severity Reaction Status Date / Time aspirin Allergy Severe BLEEDING Verified 04/29/18 14:15 ULCERS clonazepam Allergy Severe Hallucinati Verified 04/29/18 14:15 ons iodine Allergy Severe Rash Verified 04/29/18 14:15 paroxetine Allergy Severe Rash Verified 04/29/18 14:15 potassium iodide Allergy Severe Rash Verified 04/29/18 14:15 povidone-iodine Allergy Severe Rash Verified 04/29/18 14:15 sodium iodide Allergy Severe Rash Verified 04/29/18 14:15 sodium iodide Allergy Severe Rash Verified 04/29/18 14:15 ziprasidone Allergy Severe TONGUE Verified 04/29/18 14:15 SWELLING Home Medications Medication Instructions Recorded Confirmed Type No Known Home Medications 02/02/18 02/02/18 History Active Medications: Active Medications Acetaminophen (Tylenol) 650 mg PO Q4H PRN PRN Reason: Temp > 100.4 Al Hydroxide/Mg Hydroxide (Milk Of Magnesia Liq) 30 ml PO Q12H PRN PRN Reason: Mild Constipation Sodium Chloride (Ns Inj) 1,000 mls @ 100 mls/hr IV.CONT .Q10H GELACIO Vancomycin HCl 1,000 mg/ (Sodium Chloride) 250 mls @ 250 mls/hr IV.SIG Q12H EGLACIO Lactobacillus Acidophilus (Lactinex) 1 tab PO TID GELACIO Ondansetron HCl (Zofran Inj) 4 mg IV.PUSH Q6H PRN PRN Reason: NAUSEA OR VOMITING Oxycodone/Acetaminophen (Percocet 10/325 Mg) 1 tab PO Q4H PRN PRN Reason: Pain 7 to 10 Oxycodone/Acetaminophen (Percocet 5/325 Mg) 1 tab PO Q4H PRN PRN Reason: Pain 3 to 6 Pharmacy Profile Note (Vancomycin Consult Pharmacy) 1 each OTHER UNSCH PRN PRN Reason: Pharmacy to dose Sodium Chloride (Ns Flush) 2 ml IV.FLUSH BID GELACIO Sodium Chloride (Ns Flush) 2 ml IV.FLUSH PRN PRN PRN Reason: FLUSH AFTER USING IV ACCESS Physical Exam Vital signs: Vital Signs 04/29/18 14:13 04/29/18 15:10 04/29/18 15:53 Temperature 98.2 F Pulse Rate 97 H 85 Respiratory Rate 16 Blood Pressure 101/67 Pulse Oximetry 98 100 100 04/29/18 15:56 04/29/18 16:05 04/29/18 16:13 Temperature Pulse Rate 104 H 112 H Respiratory Rate 27 H Blood Pressure 175/99 H Pulse Oximetry 100 100 100 04/29/18 16:23 04/29/18 16:24 04/29/18 17:00 Temperature Pulse Rate 92 H 88 82 Respiratory Rate 18 Blood Pressure 145/91 H 126/81 Pulse Oximetry 100 04/29/18 17:01 Temperature Pulse Rate Respiratory Rate Blood Pressure Pulse Oximetry 100 Intake & Output 04/28/18 04/29/18 04/29/18 18:59 06:59 18:59 Weight 69.4 kg Narrative: GENERAL: NAD, A&Ox3, disheveled HEAD: Normocephalic. NECK: Supple, trachea midline. No lymphadenopathy. EYES: No scleral icterus. No injection or drainage. CARDIOVASCULAR: Regular rate and rhythm without murmurs, gallops, or rubs. RESPIRATORY: Breath sounds equal bilaterally. No accessory muscle use. GASTROINTESTINAL: Abdomen soft, non-tender, nondistended. MUSCULOSKELETAL: No cyanosis, or edema. Right forearm has induration and erythema standing from middle forearm to hand. SKIN: Warm and dry. NEURO: No focal neurological deficits. Results Labs CBC & Chem 7: 04/29/18 15:35 04/29/18 15:35 Imaging Impressions Chest X-Ray 04/29/18 15:16 CONCLUSION: Cardiomegaly. No acute abnormality. Hand X-Ray 04/29/18 16:10 CONCLUSION: Prominent dorsal soft tissue swelling. The osseous structures appear radiographically intact. Caprini VTE Risk Assessment Caprini VTE Risk Assessment: No/Low Risk (score <= 1) Caprini Risk Assessment Model: Point Value = 1 Point Value = 2 Point Value = 3 Point Value = 5 Age 41-60 Minor surgery BMI > 25 kg/m2 Swollen legs Varicose veins or History of unexplained or recurrent spontaneous Oral contraceptives or hormone replacement Sepsis (< 1 month) Serious lung disease, including pneumonia (< 1 month) Abnormal pulmonary function Acute myocardial infarction Congestive heart failure (< 1 month) History of inflammatory bowel disease Medical patient at bed rest Age 61-74 Arthroscopic surgery Major open surgery (> 45 min) Laparoscopic surgery (> 45 min) Malignancy Confined to bed (> 72 hours) Immobilizing plaster cast Central venous access Age >= 75 History of VTE Family history of VTE Factor V Leiden Prothrombin [id number] Lupus anticoagulant Anticardiolipin antibodies Elevated serum homocysteine Heparin-induced thrombocytopenia Other congenital or acquired thrombophilia Stroke (< 1 month) Elective arthroplasty Hip, pelvis, or leg fracture Acute spinal cord injury (< 1 month) Prophylaxis Regimen: Total Risk Factor Score Risk Level Prophylaxis Regimen 0-1 Low Early ambulation 2 Moderate Order ONE of the following: *Sequential Compression Device (SCD) *Heparin 5000 units SQ BID 3-4 Higher Order ONE of the following medications: *Heparin 5000 units SQ TID *Enoxaparin/Lovenox 40 mg SQ daily (WT < 150 kg, CrCl > 30 mL/min) *Enoxaparin/Lovenox 30 mg SQ daily (WT < 150 kg, CrCl > 10-29 mL/min) *Enoxaparin/Lovenox 30 mg SQ BID (WT < 150 kg, CrCl > 30 mL/min) AND/OR *Sequential Compression Device (SCD) 5 or more Highest Order ONE of the following medications: *Heparin 5000 units SQ TID (Preferred with Epidurals) *Enoxaparin/Lovenox 40 mg SQ daily (WT < 150 kg, CrCl > 30 mL/min) *Enoxaparin/Lovenox 30 mg SQ daily (WT < 150 kg, CrCl > 10-29 mL/min) *Enoxaparin/Lovenox 30 mg SQ BID (WT < 150 kg, CrCl > 30 mL/min) AND *Sequential Compression Device (SCD) Assessment and Plan Plan 62-year-old male admitted secondary to right forearm infection related to IV drug abuse Right forearm cellulitis Right forearm abscess I&D performed in the ER Obtain MRI to rule out deeper abscess Follow wound culture Follow blood culture If blood cultures positive consider further workup for infective endocarditis Continue pain treatment Opioid dependence IV drug abuse (heroin, opioids) Monitor for withdrawals MS Contin provided to prevent withdrawal Percocet as needed for pain, will also aid in prevention of withdrawal Patient counseled to seek quitting IV drug abuse DVT prophylaxis SCDs Lovenox
[2018-04-29] MEDS: Lactobacillus Acidophilus/L. Spores Tablet PO SCH (19:03)
[2018-04-29] MEDS: oxyCODONE/Acetaminophen 10/325 Tablet PO PRN (19:03)
[2018-04-29] MEDS: Sod Chloride 0.9% Inj 1,000 ML IV.CONT SCH (19:09)
[2018-04-29] MEDS: Morphine Sulfate 15 MG SR Tablet PO SCH (21:00)
[2018-04-30] MEDS: oxyCODONE/Acetaminophen 10/325 Tablet PO PRN ×5 (00:40→17:18)
[2018-04-30] MEDS: Vancomycin Inj 1,000 MG in Sodium Chlor 0.9% Inj 250 ML IV.SIG SCH ×2 (04:38→16:34)
[2018-04-30] MEDS: Sod Chloride 0.9% Inj 1,000 ML IV.CONT SCH ×2 (04:45→13:40)
[2018-04-30] MEDS ORDERED: Vancomycin Consult Pharmacy OTHER PRN (05:00)
[2018-04-30 06:24] LABS: Baso # (Auto) 0.1 th/mm3 (0.0-0.2); Baso % (Auto) 1.2 % (0.0-2.0); Eos # (Auto) 0.2 th/mm3 (0.0-0.4); Eos % (Auto) 2.5 % (0.0-4.0); Hematocrit 30.6 % (39.0-51.0); Lymph # (Auto) 2.1 th/mm3 (1.0-4.8); Lymph % (Auto) 21.3 % (9.0-44.0); Mean Corpuscular HGB Conc 32.6 % (32.0-36.0); Mean Corpuscular Volume 88.8 fL (80.0-100.0); Mono # (Auto) 0.9 th/mm3 (0.0-0.9); Mono % (Auto) 9.7 % (0.0-8.0); Neut # (Auto) 6.4 th/mm3 (1.8-7.7); Neut % (Auto) 65.3 % (16.0-70.0); Platelet Count 252 th/mm3 (150-450); Red Blood Count 3.45 mil/mm3 (4.50-5.90); Red Cell Distribution Width 14.1 % (11.6-17.2); White Blood Count 9.7 th/mm3 (4.0-11.0)
[2018-04-30 06:46] LABS: Alanine Aminotransferase 47 U/L (12-78); Albumin 2.3 g/dL (3.4-5.0); Alkaline Phosphatase 63 U/L (45-117); Anion Gap 7 meq/L (5-15); Aspartate Aminotransferase 33 U/L (15-37); Blood Urea Nitrogen 15 mg/dL (7-18); Calcium 7.6 mg/dL (8.5-10.1); Chloride 105 meq/L (98-107); Glomerular Filtration Rate Greater Than 89 mL/min (>89); Glucose,Random 94 mg/dL (74-106); Potassium 4.3 meq/L (3.5-5.1); Sodium 135 meq/L (136-145); Total Protein 6.3 g/dL (6.4-8.2)
[2018-04-30] MEDS: Morphine Sulfate 15 MG SR Tablet PO SCH ×3 (07:27→21:13)
[2018-04-30] MEDS: Enoxaparin Inj 40 MG/0.4 ML Syringe SQ SCH ×2 (07:27→08:27)
[2018-04-30] MEDS: Lactobacillus Acidophilus/L. Spores Tablet PO SCH ×5 (07:28→17:18)
--- NOTE | 2018-04-30 10:16 | P.PNIM ---
Subjective Interval history: No acute changes overnight. Patient has no new complaints. He is agreeable to obtain MRI to rule out deep abscess. He feels some swelling has gone down, visibly this is not evident. Physical Exam Vital signs: Vital Signs 04/29/18 14:13 04/29/18 15:10 04/29/18 15:53 Temperature 98.2 F Pulse Rate 97 H 85 Respiratory Rate 16 Blood Pressure 101/67 Pulse Oximetry 98 100 100 04/29/18 15:56 04/29/18 16:05 04/29/18 16:13 Temperature Pulse Rate 104 H 112 H Respiratory Rate 27 H Blood Pressure 175/99 H Pulse Oximetry 100 100 100 04/29/18 16:23 04/29/18 16:24 04/29/18 17:00 Temperature Pulse Rate 92 H 88 82 Respiratory Rate 18 Blood Pressure 145/91 H 126/81 Pulse Oximetry 100 04/29/18 17:01 04/29/18 18:28 04/29/18 20:00 Temperature 97.9 F 97.4 F L Pulse Rate 73 84 Respiratory Rate 18 Blood Pressure 121/74 114/81 Pulse Oximetry 100 99 04/29/18 21:30 04/30/18 00:00 04/30/18 04:00 Temperature 98.1 F 99.6 F Pulse Rate 86 82 Respiratory Rate 12 18 18 Blood Pressure 114/79 112/66 Pulse Oximetry 97 98 04/30/18 06:17 04/30/18 08:00 04/30/18 08:09 Temperature 97.2 F L Pulse Rate 84 69 Respiratory Rate 18 20 Blood Pressure 115/77 Pulse Oximetry 98 Intake & Output 04/29/18 04/30/18 04/30/18 18:59 06:59 18:59 Intake Total 1262.5 / 1262.5 1999 250 / 250 Output Total 200 / 200 Balance 1262.5 / 1262.5 1999 50 / 50 Weight 69.4 kg 69.4 kg Intake: IV 1262.5 / 1262.5 1000 / 1000 250 / 250 NS Inj 1,000 ML @ 100 mls/hr IV 1000 / 1000 .CONT .Q10H GELACIO Rx#:[id number] NS Inj 1,000 ML @ 1000 mls/hr 1000 / 1000 IV.SIG BOLUS GELACIO Rx#:[id number] Vancomycin Inj 1,000 MG In NS 250 / 250 Inj 250 ML @ 250 mls/hr IV.SIG Q12H GELACIO Rx#:[id number] Vancomycin Inj 1,250 MG In NS 262.5 / 262.5 Inj 250 ML @ 250 mls/hr IV.SIG ONCE ONE Rx#:[id number] Oral Supplement 1000 / 1000 Output: Urine 200 / 200 Other: # Voids 3 1 Date of Last Bowel Movement 04/29/18 Narrative: GENERAL: NAD, A&Ox3, disheveled HEAD: Normocephalic. NECK: Supple, trachea midline. No lymphadenopathy. EYES: No scleral icterus. No injection or drainage. CARDIOVASCULAR: Regular rate and rhythm without murmurs, gallops, or rubs. RESPIRATORY: Breath sounds equal bilaterally. No accessory muscle use. GASTROINTESTINAL: Abdomen soft, non-tender, nondistended. MUSCULOSKELETAL: No cyanosis, or edema. Right forearm has induration and erythema standing from middle forearm to hand. SKIN: Warm and dry. NEURO: No focal neurological deficits. Results Labs CBC & Chem 7: 04/30/18 05:05 04/30/18 05:05 Imaging Imaging: Impressions Chest X-Ray 04/29/18 15:16 CONCLUSION: Cardiomegaly. No acute abnormality. Hand X-Ray 04/29/18 16:10 CONCLUSION: Prominent dorsal soft tissue swelling. The osseous structures appear radiographically intact. Assessment and Plan Plan 62-year-old male admitted secondary to right forearm infection related to IV drug abuse MRI planned for today. If MRI shows deep abscess surgical consult will be obtained. For now continue to monitor cultures and continue antibiotics. Right forearm cellulitis Right forearm abscess I&D performed in the ER Obtain MRI to rule out deeper abscess Follow wound culture Follow blood culture If blood cultures positive consider further workup for infective endocarditis Continue pain treatment Vancomycin. Opioid dependence IV drug abuse (heroin, opioids) Monitor for withdrawals MS Contin provided to prevent withdrawal Percocet as needed for pain, will also aid in prevention of withdrawal Patient counseled to seek quitting IV drug abuse DVT prophylaxis SCDs Lovenox Progress Note: Quality VTE Deep Vein Thrombosis/Pulmonary Embolism Present on Admission: No
--- NOTE | 2018-04-30 14:49 | ECG ---
Date Performed: 04/29/2018 Time Performed: 16:18:47 PTAGE: 62 years EKG: Sinus rhythm LEFT ANTERIOR FASCICULAR BLOCK ABNORMAL ECG Since the PREVIOUS TRACING , no significant change noted PREVIOUS TRACIN02/03/2018 00.49 DOCTOR: Margarette Richey Interpretating Date/Time 04/30/2018 14:43:09
[2018-04-30] MEDS ORDERED: Gadobutrol PF 7.5 MMOL/7.5 ML Vial (for RAD) IV.SIG ONE (15:22)
--- NOTE | 2018-04-30 15:48 | MR ---
EXAM DATE: 04/30/2018 3:36 PM EST AGE/SEX: 62 years / Male INDICATIONS: Arm swelling and pain. CLINICAL DATA: This is the patient's initial encounter. Patient reports that signs and symptoms have been present for 1 day and indicates a pain score of 6/10. MEDICAL/SURGICAL HISTORY: . IVDA. Inguinal hernia repair. COMPARISON: No prior exams available for comparison. TECHNIQUE: Multiplanar, multisequence MRI examination was performed without and with ml Gadavist (ga dobutrol) contrast as single exam dose. FINDINGS: Sagittal and coronal images including the entire forearm in the axial images extend from the middle f orearm to the wrist. There is localized edema and T2 prolongation within the carpal tunnel with no si gnal abnormality seen within the tendons within the carpal tunnel. There is some edema surrounding th e lateral tendon sheaths in the mid forearm. There is inhomogeneous signal in the marrow of the proxi mal diaphysis of the radius characterized by scattered areas of T2 prolongation and T1 prolongation. No surrounding soft tissue edema about the proximal humerus. No signal abnormalities in the marrow of the ulna. No dorsal soft tissue swelling. No drainable fluid collections seen. CONCLUSION: 1. Abnormal signal within the marrow of the proximal one third shaft of the radius which is nonspeci fic. Osteomyelitis could have this appearance. 2. T2 prolongation of the soft tissues within the carpal tunnel without abnormal signal within the t endons. Recommend correlation with clinical exam for symptoms of carpal tunnel syndrome. Electronically signed by: Toñito Anthony MD Board Certified Radiologist 04/30/2018 3:47 PM EST
[2018-05-01] MEDS: oxyCODONE/Acetaminophen 10/325 Tablet PO PRN ×2 (02:33→14:16)
[2018-05-01] MEDS: Sod Chloride 0.9% Inj 1,000 ML IV.CONT SCH ×2 (02:34→12:15)
[2018-05-01] MEDS ORDERED: Pharmacy Ordered Lab Info OTHER ONE (04:45)
[2018-05-01] MEDS: Vancomycin Inj 1,000 MG in Sodium Chlor 0.9% Inj 250 ML IV.SIG SCH (04:51)
[2018-05-01] MEDS: Lactobacillus Acidophilus/L. Spores Tablet PO SCH ×3 (08:51→17:11)
[2018-05-01] MEDS: Morphine Sulfate 15 MG SR Tablet PO SCH ×2 (08:51→21:04)
[2018-05-01] MEDS: Enoxaparin Inj 40 MG/0.4 ML Syringe SQ SCH (08:51)
--- NOTE | 2018-05-01 11:38 | P.PNIM ---
Subjective Interval history: MRI shows no evidence of abscess. Clinically patient does not have evidence of osteomyelitis. 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 Physical Exam Vital signs: Vital Signs 04/30/18 12:00 04/30/18 12:59 04/30/18 16:00 Temperature 97.1 F L 97.1 F L 96.8 F L Pulse Rate 80 80 81 Respiratory Rate 20 20 20 Blood Pressure 95/61 L 95/61 L 98/66 L Pulse Oximetry 99 99 97 04/30/18 20:00 05/01/18 00:00 05/01/18 04:00 Temperature 98.9 F 98.1 F 98.8 F Pulse Rate 99 H 86 88 Respiratory Rate 18 20 18 Blood Pressure 108/57 L 120/67 125/68 Pulse Oximetry 99 96 98 Intake & Output 04/30/18 05/01/18 05/01/18 18:59 06:59 18:59 Intake Total 2070 / 2070 1250 / 1250 Output Total 500 / 500 600 / 600 Balance 1570 / 1570 650 / 650 Weight 70.7 kg Intake: IV 1350 / 1350 1250 / 1250 NS Inj 1,000 ML @ 100 mls/hr IV 850 / 850 1000 / 1000 .CONT .Q10H GELACIO Rx#:[id number] Vancomycin Inj 1,000 MG In NS 500 / 500 250 / 250 Inj 250 ML @ 250 mls/hr IV.SIG Q12H GELACIO Rx#:[id number] Oral 720 / 720 Output: Urine 500 / 500 600 / 600 Other: # Voids 6 Date of Last Bowel Movement 04/29/18 Narrative: GENERAL: NAD, A&Ox3, disheveled HEAD: Normocephalic. NECK: Supple, trachea midline. No lymphadenopathy. EYES: No scleral icterus. No injection or drainage. CARDIOVASCULAR: Regular rate and rhythm without murmurs, gallops, or rubs. RESPIRATORY: Breath sounds equal bilaterally. No accessory muscle use. GASTROINTESTINAL: Abdomen soft, non-tender, nondistended. MUSCULOSKELETAL: No cyanosis, or edema. Improving induration and erythema at right forearm. SKIN: Warm and dry. NEURO: No focal neurological deficits. Results Labs CBC & Chem 7: 04/30/18 05:05 04/30/18 05:05 Labs: Microbiology 04/29/18 16:15 Blood - Peripheral Aerobic Blood Culture - Preliminary No growth in 2 days 04/29/18 16:15 Blood - Peripheral Anaerobic Blood Culture - Preliminary No growth in 2 days 04/29/18 15:35 Blood - Peripheral Aerobic Blood Culture - Preliminary No growth in 2 days 04/29/18 15:35 Blood - Peripheral Anaerobic Blood Culture - Preliminary No growth in 2 days 04/29/18 16:00 Abscess - Hand Gram Stain - Final 04/29/18 16:00 Abscess - Hand Wound Culture - Preliminary Imaging Imaging: Impressions Forearm MRI 04/30/18 00:00 CONCLUSION: 1. Abnormal signal within the marrow of the proximal one third shaft of the radius which is nonspecific. Osteomyelitis could have this appearance. 2. T2 prolongation of the soft tissues within the carpal tunnel without abnormal signal within the tendons. Recommend correlation with clinical exam for symptoms of carpal tunnel syndrome. Assessment and Plan Plan 62-year-old male admitted secondary to right forearm infection related to IV drug abuse No abscess on MRI. Continue monitoring blood culture. If final blood culture negative and cultures for wound result with an antibiotic which is p.o., this patient could possibly be discharging on oral treatment in 1-2 days. For now continue to monitor cultures and continue antibiotics. Right forearm cellulitis Right forearm abscess I&D performed in the ER Obtain MRI to rule out deeper abscess Follow wound culture Follow blood culture If blood cultures positive consider further workup for infective endocarditis Continue pain treatment Vancomycin. Opioid dependence IV drug abuse (heroin, opioids) Monitor for withdrawals MS Contin provided to prevent withdrawal Percocet as needed for pain, will also aid in prevention of withdrawal Patient counseled to seek quitting IV drug abuse DVT prophylaxis SCDs Lovenox Progress Note: Quality VTE Deep Vein Thrombosis/Pulmonary Embolism Present on Admission: No
[2018-05-01] MEDS: Vancomycin Inj 1,500 MG in Sodium Chlor 0.9% Inj 500 ML IV.SIG SCH (14:16)
[2018-05-02] MEDS: Sod Chloride 0.9% Inj 1,000 ML IV.CONT SCH (00:24)
[2018-05-02] MEDS: oxyCODONE/Acetaminophen 10/325 Tablet PO PRN ×3 (01:07→10:11)
[2018-05-02] MEDS: Vancomycin Inj 1,500 MG in Sodium Chlor 0.9% Inj 500 ML IV.SIG SCH (01:08)
[2018-05-02 07:17] LABS: Glomerular Filtration Rate Greater Than 89 mL/min (>89)
[2018-05-02] MEDS: Lactobacillus Acidophilus/L. Spores Tablet PO SCH (08:25)
[2018-05-02] MEDS: Morphine Sulfate 15 MG SR Tablet PO SCH (08:25)
[2018-05-02] MEDS: Enoxaparin Inj 40 MG/0.4 ML Syringe SQ SCH (08:25)
[2018-05-02 10:13] VITALS: RESP 18
[2018-05-02 10:18] VITALS: BP 108/68; PULSE 77; TEMP 98.2; O2SAT 95
[2018-05-02] MEDS ORDERED: Pharmacy Ordered Lab Info OTHER ONE (13:45)
--- NOTE | 2018-05-02 15:18 | P.DS ---
DS: Providers Date of admission: 04/29/18 17:15 Primary care physician: No Primary Care Physician Brief History from admission: Mr. Ugalde is a 62-year-old male. He has a past medical history of IV drug abuse. He admits to still using IV drugs, specifically opioids and heroin. He comes in the hospital secondary to a right arm infection. He has noticed this infection over the past 2 days. He says it is been progressive. He is been getting chills as an outpatient. Sepsis criteria is present with leukocytosis, tachycardia, tachypnea, and known infection source at time of admit. He denies any other past medical history. He denies any cardiac disease. No chest pain reported. He denies lung disease. DS: Summary Mr. Ugalde is a 62-year-old male. He was admitted secondary to sepsis with cellulitis. Abscess was drained in the ER. Imaging for further abscess did not show any deep abscess. Cultures were monitored. Final results and cultures were nonspecific. Patient is recovering well with current antibiotics. Drug abuse blood cultures were monitored which ended up being negative. No further need for workup including echocardiogram. He is transition to Bactrim at discharge and medically stable and cleared for discharge home today. Time Spent with Patient Total time spent providing and/or coordinating discharge services: Less than 30 minutes Quality: VTE Deep Vein Thrombosis/Pulmonary Embolism Present on Admission: No Results Labs on day of discharge: Labs from last 24 hours 05/02/18 06:31 Creatinine 0.56 L Estimated GFR Greater than 89 Preliminary micro results at discharge 04/29/18 16:15 Aerobic Blood Culture - Preliminary Blood - Peripheral No growth in 3 days Anaerobic Blood Culture - Preliminary No growth in 3 days 04/29/18 15:35 Aerobic Blood Culture - Preliminary Blood - Peripheral No growth in 3 days Anaerobic Blood Culture - Preliminary No growth in 3 days Impressions ITS Impressions Chest X-Ray 04/29/18 15:16 CONCLUSION: Cardiomegaly. No acute abnormality. Hand X-Ray 04/29/18 16:10 CONCLUSION: Prominent dorsal soft tissue swelling. The osseous structures appear radiographically intact. Forearm MRI 04/30/18 00:00 CONCLUSION: 1. Abnormal signal within the marrow of the proximal one third shaft of the radius which is nonspecific. Osteomyelitis could have this appearance. 2. T2 prolongation of the soft tissues within the carpal tunnel without abnormal signal within the tendons. Recommend correlation with clinical exam for symptoms of carpal tunnel syndrome. Discharge Plan Discharge Disposition Patient Disposition: 01 Discharge Home Discharge Condition Condition: Stable Discharge Order Discharge Orders: Discharge Order (Routine); Ordered 05/02/18 Ordered By: Morales Carbajal Discharge Details Anticipated Discharge Date: 05/02/18 Physicians Team Primary Care Provider: Primary Care Sylvia Huston Attending Provider: Morales Carbajal Rxs /Orders / Referrals /Forms Prescriptions: New sulfamethoxazole-trimethoprim [Bactrim DS] 800-160 mg tablet 1 tab PO Q12H 7 Days Qty: 14 RF: 0 Lactobacillus acidophilus Capsule 500 mmu cells PO TID Qty: 30 RF: 0 Continue nicotine 21 mg/24 hr Patch 24 Hour 1 patch Transdermal DAILY Qty: 14 RF: 0 Discontinued amoxicillin-pot clavulanate 875-125 mg Tablet 1 tab PO Q12HR Qty: 20 RF: 0 Referrals: Primary Care Sylvia Huston [Primary Care Provider] - See Instructions ( Please call the physician's office TO BOOK YOUR F/U APT AFTER THE WEEKEND AND HOLIDAY, OFFICES OPEN ON THURSDAY, IF YOU DO NOT HAVE A PCP CALL [facility] [phone]) Discharge Instructions Patient Printed Instructions: Sulfamethoxazole/Trimethoprim (By mouth), Probiotic (By mouth), Cellulitis (GEN) Status ED Status: Left Department Discharge Information Discharge Date/Time: 05/02/18 13:54
== END 2018-05-02 13:54 | disposition home or self-care (01) | DRG 872 ==
LOC: PHEFT 13:51 → PHEDA 17:15 → PH3 18:40
PROVIDERS: ADMIT Hospitalist; ATTEND Hospitalist
CPT/HCPCS: 10060; 71010; 71045; 73130; 73220; 80053; 80202; 82565; 83605; 83735; 85025; 87040; 87070; 87205; 90774; 90775; 93005; 94770; 96374; 96375; 99285; A9585; C8952; J1170; J1650; J1885; J3370; J7030; J7040; J7050